=== PATIENT | male | born 1960 | race Caucasian/White ===

== ENCOUNTER 2019-01-29 07:10 | Emergency (ER) | payer BC ==
--- OUTSIDE RECORDS SUMMARY | 2019-01-29 07:28 | XMS REPORT | Continuity of Care Document ---
:1960 External Reference #:[id number] Author Name Katelin Dickey MD Address [address] [place] [address] Care Team Providers Name Role Phone Kaykay Schwartz, LASER ENGINEER, CNM Care Team Information Senior Environmental Practice Leader Unavailable Katelin Dickey MD Primary Care Physician Unavailable Payers Date Identification Numbers Payment Provider Subscriber Policy Number: [id number] [facility] Remington Gomez PayID: [id number] [address] [address] [place] [address] Expires: 2018 Policy Number: [id number] [employer] Remington Gomez PayID: [id number] [address] [place] [address] Advance Directives Description No Information Available Problems Active Problems Provider Date Coronary arteriosclerosis Nola Miller, BRI, Onset: 03/02/2012 MACHINE II CUTTER Carotid artery occlusion Nola Miller, MSN, Onset: 03/02/2012 MACHINE II CUTTER Peripheral vascular disease Nola Miller, MSN, Onset: 03/02/2012 MACHINE II CUTTER Hyperlipidemia Nola Miller, MSN, Onset: 03/02/2012 MACHINE II CUTTER Benign essential hypertension Nola Miller, MSN, Onset: 03/02/2012 MACHINE II CUTTER Mitral valve disorder Garcia Tee M.D., Onset: 10/11/2013 FACC Psychosexual dysfunction associated Garcia Tee M.D., 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 FACC Essential hypertension Nola Miller, MSN, Onset: 05/28/2016 MACHINE II CUTTER Preoperative cardiovascular Gracia Tee M.D., Onset: 01/09/2017 examination FACC Heartburn Johnathon Del Valle MD Onset: 09/30/2017 Screening for malignant neoplasm of Johnathon Del Valle MD Onset: 09/30/2017 colon Hemorrhage of rectum and anus Johnahton Del Valle MD Onset: 09/30/2017 Chronic nonalcoholic liver disease Johnathon Del Valle MD Onset: 09/30/2017 Incisional hernia Kar Goode MD,FACS Onset: 10/05/2017 Type 2 diabetes mellitus Katelin Dickey MD Onset: 10/16/2017 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/16/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 Smoking Status Reviewed: 01/18/19 Quit smoked 1.5 ppd for 30 yrs. Smokeless Tobacco Never Used Smokeless Tobacco ETOH Use Denies alcohol use Tobacco Use Start: Unknown End: Patient is a former QUIT 2006 Unknown smoker Recreational Drug Use Never Used Drugs Exercise Type/Frequency Exercises regularly Allergies, Adverse Reactions, Alerts Active Allergies Reaction Severity Comments Date Victoza Abdominal pain Severe 01/13/2019 Medications Active Medications SIG Qnty Indications Ordering Date Provider Metformin HCL take one tablet 60tabs Keli, Katelin, 01/05/2019 1000mg by mouth twice a MD Tablets day Ipratropium [place] use 2 sprays in 15ml J06.9 Keli, Katelin, 11/30/2018 0.06% each nostril MD Solution twice a day Benzonatate take one capsule 30caps R05 Keli, Katelin, 11/30/2018 200mg every 8 hours as MD Capsules needed Ergocalciferol take one a week 16caps E55.9 Gagen, 11/03/2018 [id number] Kaykay, MS, Capsules MACHINE II CUTTER-C, CNM Clopidogrel Bisulfate Take 1 Tablet By 30tabs Nay, 10/28/2018 Mouth Once Daily Garcia Olivier M.D., 75mg Tablets [facility] Proair Respiclick Take one or two 1units Gagen, 07/21/2018 puffs every 4-6 Kaykay, MS, 108(90Base) mcg/Act hours as needed MACHINE II CUTTER-C, CNM Aerosol for SOB Lancets Ultra Thin 30G Check BS 3- 4 100units E11.9 Gagen, 07/20/2018 times a day Type Kaykay, MS, Thin 30G Misc 2 diabetes MACHINE II CUTTER-C, CNM Freestyle Test fasting fs tid & 250units E11.42 Keli, Katelin, 04/20/2018 Strips prn MD Freestyle Test Fasting 250units E11.42 Keli, Katelin, 04/20/2018 Sugar Three MD Times A Day And as Needed Lancets Ultra Thin 30G use once daily 100units Keli, Katelin, 04/19/2018 and as needed MD Thin [facility]G [facility] Fenofibrate Take 1 Tablet By 90tabs E78.4 Davidenko, 02/19/2018 160mg Tablets Mouth Once Daily Garcia Olivier M.D., [facility] Glimepiride Take 3 Tablets 270tabs Keli, Katelin, 02/04/2018 2mg Tablets By Mouth Once MD Daily Amlodipine Besylate Take 1 Tablet By 90tabs Katelin Dickey, 01/15/2018 5mg Mouth Once Daily MD Tablets Cialis 1 tab by mouth 30tabs Katelin Dickey, 10/16/2017 5mg Tablets as needed for ED Pantoprazole Sodium take 1 tablet by 30tabs R12 Arnav, 09/30/2017 20mg mouth once daily MD Quirino Tablets DR Lisinopril Take 1 Tablet By 90tabs Katelin Dickey, 09/11/2017 40mg Tablets Mouth Once Daily Rosuvastatin Calcium take one tablet 30tabs E11.9 Nay, 12/21/2012 20mg by mouth once Garcia Olivier M.D., Tablets daily FACC Aspirin 1 po qd 90tabs Nola Miller 81mg Tablets Phani MSN, MACHINE II CUTTER Atenolol Take One Tablet 90tabs Nay, 50mg Tablets By Mouth Once Garcia Olivier M.D., Daily FACC History Medications Janumet Take 1 Tablet By 90tabs Katelin Dickey, 12/08/2018 - 50-1000mg Tablets Mouth Once Daily 01/05/2019 Metformin HCL take one tablet 60tabs Katelin Dickey, 12/07/2018 - 1000mg by mouth twice a MD 12/08/2018 Tablets day Azithromycin take 2 tablets 6tabs R05 Katelin Dickey, 11/30/2018 - 250mg the first day Unknown Tablets and then 1 tablet for next 4 days orally Prednisone 2 tabs (40 mg) 10tabs R06.2 Katelin Dickey, 11/30/2018 - 20mg Tablets daily for 5 days Unknown BD Pen Use with Victoza 100units Katelin Dickey, 11/30/2018 - Needle/Short/Ultra-Fin once a day, as 01/05/2019 e/31G X 8mm directed 31G X 8 mm Misc Victoza inject 0.6mg 18ml E11.9 Gagen, 11/03/2018 - 18mg/3ML Solution subq once daily Kaykay, 01/05/2019 Pen-Inject then after one MS, MACHINE II CUTTER-C, CNM week increase to 1.2mg once daily Terbinafine HCL 1 by mouth every 21tabs B35.3 Eddie, 10/11/2018 - 250mg day for 3 weeks ARLENE Hernández 10/22/2018 Tablets Cyclobenzaprine HCL 1 tab by mouth 30tabs Keli, Katelin, 04/19/2018 - 10mg at night Unknown Tablets Onetouch Ultra Blue use to test 100units Katelin Dickey, 04/19/2018 - blood sugar 04/20/2018 Strips fasting and as needed three times a day Arnicare apply to 75g M54.5 Gagen, 04/02/2018 - Gel affected area Kaykay, Unknown four times a day MS, MACHINE II CUTTER-C, CNM pain, swelling, bruising Cyclobenzaprine HCL Take one tablet 30tabs M54.5 Gagen, 04/02/2018 - 10mg every 8 hours Kaykay, 04/12/2018 Tablets prn low back MS, MACHINE II CUTTER-C, CNM pain Golytely drink half the 4000ml Z12.Luis Antonio Del Valle MD 09/30/2017 - 236gm Solution evening before 10/05/2017 Rec and half the morning of the procedure (1 cup every 10') Dulcolax 4 tablets taken 4tabs Z12Ras Del Valle MD 09/30/2017 - 5mg Tablets DR kody 8pm the day 10/05/2017 before the procedure Magnesium Citrate 1 bottle po x 296ml Z12.Luis Antonio Del Valle MD 09/30/2017 - one as directed 10/05/2017 1.745GM/30ML Solution Lisinopril-Hydrochloro 1 by mouth every 90tabs I10 Nay, 08/20/2017 - thiazide day Garcia Olivier, 09/11/2017 20-25mg Tablets M.DDwight, FACC E11.9 Glimepiride 2 tab by mouth 90tabs Keli, Katelin, 06/15/2017 - 2mg every day 02/04/2018 Tablets Janumet Take 1 Tablet By 90tabs Keli Katelin, 06/15/2017 - 50-1000mg Mouth Once Daily 12/07/2018 Tablets Janumet 1 tab by mouth 90tabs Keli Katelin, 11/30/2016 - 50-1000mg every day 06/15/2017 Tablets Gabapentin 1-2 tab by mouth 60caps Katelin Dickey, 11/12/2016 - 100mg every night as MD Unknown Capsules needed Ciclopirox apply to affected 45gm Katelin Dickey, 11/12/2016 - 0.77% Gel area of bilateral MD Unknown toes twice daily for four weeks Medrol medrol dose pack 1units M51.16 Nola Miller 05/28/2016 - 4mg TBPK as on package BRI Jeronimo, Unknown MACHINE II CUTTER Ventolin HFA take 1-2 puffs QS J43.2 Cresencio Hair, 12/25/2015 - every 4-6 hours Unknown 108(90Base) mcg/Act as needed for Aerosol shortness of breath. Spiriva Respimat take 2 puffs once 1units J43.2 Cresencio Hair, 12/25/2015 - daily. Unknown 2.5mcg/Act Aerosol Cialis po prn 5tabs 302.72 Nay, 05/02/2014 - 5mg Tablets Garcia Olivier M.D., Unknown FACC Tricor Take One Tablet 30tabs Nay, 07/19/2013 - 145mg Tablets By Mouth Every Garcia Olivier M.D., Unknown Day FACC Metformin HCL take one tablet 120tabs Gregorio Ortega 04/08/2013 - 500mg by mouth twice E., DO 12/01/2016 Tablets daily with meals Omeprazole 1 po qd 30caps Nola Miller 10/01/2010 - 20mg BRI Jeronimo, Unknown Capsules DR CROWE Aciphex 1 po qd 30tabs Nay, 09/11/2010 - 20mg Tablets Garcia Olivier M.D., 10/01/2010 DR FACAlida Tricor Take One Tablet 30tabs 272.4 Nay, 02/20/2010 - 145mg Tablets By Mouth Every Garcia Olivier M.D., Unknown Day FACC Lisinopril take one tablet 90tabs I10 Nay, 04/24/2009 - 20mg by mouth every Garcia Olivier M.D., 08/20/2017 Tablets day FACC E11.9 Tums prn Unknown - 500mg Chewtabs Unknown Crestor Take One Tablet 30tabs 272.4 Garcia Tee - 10mg Tablets By Mouth Every M., M.D., [facility] 12/21/2012 Day Glimepiride 1 po qd 180tabs Unknown - 4mg 06/15/2017 Tablets Fenofibrate take one tablet 90tabs E78.4 Garcia Tee - 145mg by mouth every M., M.D., [facility] 02/19/2018 Tablets day Tums chew and swallow Unknown - 500mg Chewtabs 1 tablet by 01/15/2018 mouth 3 times per day prn Hydrocodone-Acetamin as needed Unknown - ophen 12/07/2017 5-325mg Tablets Immunizations CPT Code Status Date Vaccine Reaction Lot # [id number] Given 07/20/2018 Influenza Virus Vaccine, Quadrivalent, 36 none [id number] Mos+, .5ML 13740 Given 06/15/2017 Influenza Virus Vaccine Quadrivalent Iiv4 [id number] [place] [address] Given 07/08/2016 Influenza Virus Vaccine Split Virus Use [id number] For Individual 3Yr Older [id number] Given 07/04/2015 Influenza Vaccine (Fluzone) Age 3 And Older 10300 Given 08/04/2013 Pneumovax Injection Vital Signs Date Vital Result Comment 01/18/2019 2:54pm BP Systolic Sitting Right Arm 126 mmHg BP Diastolic Sitting Right Arm 70 mmHg Body Temperature 98.4 F Heart Rate 68 /min Respiratory Rate 20 /min Height 69 inches 5'9" Weight 217.00 lb BMI (Body Mass Index) 32.0 kg/m2 BSA (Body Surface Area) 2.14 m2 [place] body weight in kilograms 73 kg O2 % BldC Oximetry 96 % ra 01/13/2019 4:30pm BP Systolic Sitting Left Arm 139 mmHg BP Diastolic Sitting Left Arm 66 mmHg Heart Rate 68 /min Respiratory Rate 14 /min Height 69 inches 5'9" Weight 216.38 lb BMI (Body Mass Index) 31.9 kg/m2 BSA (Body Surface Area) 2.14 m2 [place] body weight in kilograms 73 kg O2 % BldC Oximetry 94 % 12/14/2018 3:22pm BP Systolic Sitting Left Arm 132 mmHg BP Diastolic Sitting Left Arm 68 mmHg Body Temperature 98.0 F Heart Rate 75 /min reg Respiratory Rate 24 /min Height 69 inches 5'9" Weight 219.00 lb BMI (Body Mass Index) 32.3 kg/m2 BSA (Body Surface Area) 2.15 m2 [place] body weight in kilograms 73 kg O2 % BldC Oximetry 95 % ra 12/08/2018 2:55pm BP Systolic Sitting Left Arm 136 mmHg BP Diastolic Sitting Left Arm 51 mmHg Heart Rate 72 /min Respiratory Rate 16 /min Height 69 inches 5'9" Weight 218.00 lb BMI (Body Mass Index) 32.2 kg/m2 BSA (Body Surface Area) 2.14 m2 [place] body weight in kilograms 73 kg O2 % BldC Oximetry 95 % ra 11/30/2018 2:55pm BP Systolic Sitting Right Arm 148 mmHg 130/68 on recheck. BP Diastolic Sitting Right Arm 64 mmHg 130/68 on recheck. Body Temperature 99.7 F Heart Rate 67 /min reg Respiratory Rate 30 /min Height 69 inches 5'9" Weight 220.00 lb BMI (Body Mass Index) 32.5 kg/m2 BSA (Body Surface Area) 2.15 m2 [place] body weight in kilograms 73 kg O2 % BldC Oximetry 96 % ra 11/03/2018 3:15pm BP Systolic Sitting Right Arm 144 mmHg BP Diastolic Sitting Right Arm 82 mmHg Body Temperature 99.0 F Heart Rate 65 /min Respiratory Rate 18 /min Height 69 inches 5'9" Weight 221.00 lb BMI (Body Mass Index) 32.6 kg/m2 BSA (Body Surface Area) 2.16 m2 [place] body weight in kilograms 73 kg O2 % BldC Oximetry 96 % ra 10/20/2018 3:22pm BP Systolic Sitting Right Arm 126 mmHg BP Diastolic Sitting Right Arm 78 mmHg Body Temperature 99.8 F Heart Rate 64 /min Respiratory Rate 24 /min Height 69 inches 5'9" Weight 221.00 lb BMI (Body Mass Index) 32.6 kg/m2 BSA (Body Surface Area) 2.16 m2 [place] body weight in kilograms 73 kg O2 % BldC Oximetry 96 % 10/11/2018 1:02pm BP Systolic 194 mmHg BP Diastolic 72 mmHg Body Temperature 98.8 F Heart Rate 60 /min Respiratory Rate 18 /min Height 69 inches 5'9" Weight 220.00 lb BMI (Body Mass Index) 32.5 kg/m2 BSA (Body Surface Area) 2.15 m2 [place] body weight in kilograms 73 kg O2 % BldC Oximetry 95 % 08/23/2018 2:49pm BP Systolic Sitting Left Arm 148 mmHg BP Diastolic Sitting Left Arm 60 mmHg Heart Rate 82 /min Respiratory Rate 18 /min Height 69 inches 5'9" Weight 223.00 lb BMI (Body Mass Index) 32.9 kg/m2 BSA (Body Surface Area) 2.16 m2 [place] body weight in kilograms 73 kg O2 % BldC Oximetry 93 % 07/20/2018 2:45pm BP Systolic 148 mmHg recheck 129/75 BP Diastolic 66 mmHg recheck 129/75 Body Temperature 96.9 F Heart Rate 64 /min Respiratory Rate 18 /min Height 69 inches 5'9" Weight 215.12 lb BMI (Body Mass Index) 31.8 kg/m2 BSA (Body Surface Area) 2.13 m2 [place] body weight in kilograms 73 kg O2 % BldC Oximetry 96 % 07/01/2018 3:32pm BP Systolic Sitting Left Arm 144 mmHg BP Diastolic Sitting Left Arm 70 mmHg Heart Rate 64 /min Respiratory Rate 16 /min Height 69 inches 5'9" Weight 218.00 lb BMI (Body Mass Index) 32.2 kg/m2 BSA (Body Surface Area) 2.14 m2 [place] body weight in kilograms 73 kg 06/03/2018 3:39pm BP Systolic Sitting Left Arm 140 mmHg BP Diastolic Sitting Left Arm 64 mmHg Heart Rate 70 /min Respiratory Rate 16 /min Height 69 inches 5'9" Weight 215.00 lb BMI (Body Mass Index) 31.7 kg/m2 BSA (Body Surface Area) 2.13 m2 [place] body weight in kilograms 73 kg O2 % BldC Oximetry 95 % 04/19/2018 3:42pm BP Systolic Sitting Left Arm 140 mmHg manual 136/66/66 - manual cuff on recheck. kjt BP Diastolic Sitting Left Arm 64 mmHg manual 136/66/66 - manual cuff on recheck. kjt Body Temperature 98.7 F Heart Rate 73 /min Respiratory Rate 18 /min Height 69 inches 5'9" Weight 218.00 lb BMI (Body Mass Index) 32.2 kg/m2 BSA (Body Surface Area) 2.14 m2 [place] body weight in kilograms 73 kg O2 % BldC Oximetry 97 % Ra 04/12/2018 3:37pm BP Systolic Sitting Left Arm 127 mmHg BP Diastolic Sitting Left Arm 68 mmHg Body Temperature 99.0 F Heart Rate 78 /min Respiratory Rate 18 /min Height 69 inches 5'9" Weight 218.00 lb BMI (Body Mass Index) 32.2 kg/m2 BSA (Body Surface Area) 2.14 m2 [place] body weight in kilograms 73 kg O2 % BldC Oximetry 94 % repeat 98% Ra 04/02/2018 2:26pm BP Systolic 169 mmHg BP Diastolic 70 mmHg Body Temperature 97.8 F Heart Rate 68 /min Respiratory Rate 18 /min Height 69 inches 5'9" Weight 217.50 lb BMI (Body Mass Index) 32.1 kg/m2 BSA (Body Surface Area) 2.14 m2 [place] body weight in kilograms 73 kg O2 % BldC Oximetry 96 % 02/17/2018 2:29pm BP Systolic Sitting Left Arm 130 mmHg BP Diastolic Sitting Left Arm 58 mmHg Heart Rate 70 /min Respiratory Rate 18 /min Height 69 inches 5'9" Weight 216.00 lb BMI (Body Mass Index) 31.9 kg/m2 BSA (Body Surface Area) 2.13 m2 [place] body weight in kilograms 73 kg 01/15/2018 2:13pm BP Systolic Sitting Right Arm 154 mmHg BP Diastolic Sitting Right Arm 72 mmHg Heart Rate 67 /min Respiratory Rate 16 /min Height 69 inches 5'9" Weight 218.00 lb BMI (Body Mass Index) 32.2 kg/m2 BSA (Body Surface Area) 2.14 m2 [place] body weight in kilograms 73 kg 12/30/2017 10:30am BP Systolic Sitting Left Arm 160 mmHg BP Diastolic Sitting Left Arm 86 mmHg Heart Rate 60 /min Respiratory Rate 16 /min Height 69 inches 5'9" Weight 216.00 lb BMI (Body Mass Index) 31.9 kg/m2 BSA (Body Surface Area) 2.13 m2 [place] body weight in kilograms 73 kg 12/21/2017 11:10am BP Systolic 142 mmHg BP Diastolic 80 mmHg Height 69 inches 5'9" Weight 215.00 lb BMI (Body Mass Index) 31.7 kg/m2 BSA (Body Surface Area) 2.13 m2 [place] body weight in kilograms 73 kg 12/07/2017 10:50am BP Systolic 179 mmHg BP Diastolic 79 mmHg Heart Rate 70 /min Respiratory Rate 18 /min Height 69 inches 5'9" Weight 210.00 lb BMI (Body Mass Index) 31.0 kg/m2 BSA (Body Surface Area) 2.11 m2 [place] body weight in kilograms 73 kg 11/16/2017 2:31pm BP Systolic 148 mmHg BP Diastolic 88 mmHg Height 69 inches 5'9" Weight 210.00 lb BMI (Body Mass Index) 31.0 kg/m2 BSA (Body Surface Area) 2.11 m2 [place] body weight in kilograms 73 kg 10/22/2017 3:28pm BP Systolic Sitting Left Arm 171 mmHg BP Diastolic Sitting Left Arm 79 mmHg Body Temperature 98.3 F Heart Rate 64 /min Respiratory Rate 18 /min Height 69 inches 5'9" Weight 216.00 lb BMI (Body Mass Index) 31.9 kg/m2 BSA (Body Surface Area) 2.13 m2 [place] body weight in kilograms 73 kg O2 % BldC Oximetry 97 % 10/16/2017 9:10am BP Systolic Sitting Left Arm 162 mmHg recheck 168/64 BP Diastolic Sitting Left Arm 71 mmHg recheck 168/64 Heart Rate 66 /min Respiratory Rate 16 /min Height 69 inches 5'9" Weight 212.00 lb BMI (Body Mass Index) 31.3 kg/m2 BSA (Body Surface Area) 2.12 m2 [place] body weight in kilograms 73 kg 10/14/2017 10:48am BP Systolic 128 mmHg BP Diastolic 70 mmHg Height 69 inches 5'9" Weight 213.00 lb BMI (Body Mass Index) 31.5 kg/m2 BSA (Body Surface Area) 2.12 m2 [place] body weight in kilograms 73 kg 10/05/2017 9:17am BP Systolic 142 mmHg BP Diastolic 80 mmHg Height 69 inches 5'9" Weight 213.00 lb BMI (Body Mass Index) 31.5 kg/m2 BSA (Body Surface Area) 2.12 m2 [place] body weight in kilograms 73 kg 09/30/2017 8:50am BP Systolic Sitting Left Arm 160 mmHg BP Diastolic Sitting Left Arm 76 mmHg Heart Rate 66 /min Respiratory Rate 16 /min Height 69 inches 5'9" Weight 217.00 lb BMI (Body Mass Index) 32.0 kg/m2 BSA (Body Surface Area) 2.14 m2 [place] body weight in kilograms 73 kg 09/11/2017 12:49pm BP Systolic 153 mmHg recheck 138/62 BP Diastolic 69 mmHg recheck 138/62 Heart Rate 65 /min Respiratory Rate 14 /min Weight 217.12 lb O2 % BldC Oximetry 97 % 08/20/2017 3:00pm BP Systolic Sitting Left Arm 152 mmHg BP Diastolic Sitting Left Arm 66 mmHg Heart Rate 75 /min Respiratory Rate 16 /min Weight 216.00 lb O2 % BldC Oximetry 95 % 06/19/2017 9:25am BP Systolic Sitting Left Arm 129 mmHg BP Diastolic Sitting Left Arm 67 mmHg Heart Rate 66 /min 06/15/2017 9:09am BP Systolic Sitting Right Arm 195 mmHg recheck 162/98 BP Diastolic Sitting Right Arm 79 mmHg recheck 162/98 Heart Rate 58 /min Respiratory Rate 16 /min Height 69 inches 5'9" Weight 208.00 lb BMI (Body Mass Index) 30.7 kg/m2 BSA (Body Surface Area) 2.10 m2 [place] body weight in kilograms 73 kg 03/17/2017 9:44am BP Systolic Sitting Right Arm 140 mmHg BP Diastolic Sitting Right Arm 80 mmHg Height 69 inches 5'9" Weight 201.00 lb BMI (Body Mass Index) 29.7 kg/m2 BSA (Body Surface Area) 2.07 m2 [place] body weight in kilograms 73 kg 01/09/2017 1:44pm BP Systolic Sitting Right Arm 138 mmHg BP Diastolic Sitting Right Arm 66 mmHg Heart Rate 78 /min Respiratory Rate 16 /min Height 69 inches 5'9" Weight 217.00 lb BMI (Body Mass Index) 32.0 kg/m2 BSA (Body Surface Area) 2.14 m2 12/24/2016 1:27pm BP Systolic Sitting Left Arm 154 mmHg BP Diastolic Sitting Left Arm 68 mmHg Heart Rate 72 /min Respiratory Rate 16 /min Height 69 inches 5'9" Weight 220.00 lb BMI (Body Mass Index) 32.5 kg/m2 BSA (Body Surface Area) 2.15 m2 O2 % BldC Oximetry 95 % Room Air 11/12/2016 8:30am BP Systolic 168 mmHg andrea 140/72 BP Diastolic 76 mmHg andrea 140/72 Heart Rate 64 /min Height 69 inches 5'9" Weight 214.00 lb BMI (Body Mass Index) 31.6 kg/m2 BSA (Body Surface Area) 2.13 m2 10/01/2016 3:02pm BP Systolic Sitting Left Arm 173 mmHg BP Diastolic Sitting Left Arm 75 mmHg Heart Rate 66 /min Height 69 inches 5'9" Weight 221.00 lb BMI (Body Mass Index) 32.6 kg/m2 BSA (Body Surface Area) 2.16 m2 07/08/2016 10:34am BP Systolic 162 mmHg BP Diastolic 68 mmHg Heart Rate 62 /min Height 69 inches 5'9" Weight 219.00 lb BMI (Body Mass Index) 32.3 kg/m2 BSA (Body Surface Area) 2.15 m2 06/25/2016 1:27pm BP Systolic Sitting Left Arm 140 mmHg BP Diastolic Sitting Left Arm 64 mmHg Heart Rate 70 /min Respiratory Rate 16 /min Height 69 inches 5'9" Weight 219.00 lb BMI (Body Mass Index) 32.3 kg/m2 BSA (Body Surface Area) 2.15 m2 O2 % BldC Oximetry 95 % 05/28/2016 3:16pm BP Systolic Sitting Left Arm 120 mmHg BP Diastolic Sitting Left Arm 64 mmHg Heart Rate 64 /min Respiratory Rate 16 /min Height 69 inches 5'9" Weight 219.00 lb BMI (Body Mass Index) 32.3 kg/m2 BSA (Body Surface Area) 2.15 m2 12/25/2015 1:12pm BP Systolic Sitting Left Arm 132 mmHg BP Diastolic Sitting Left Arm 68 mmHg Heart Rate 66 /min Height 69 inches 5'9" Weight 221.00 lb BMI (Body Mass Index) 32.6 kg/m2 BSA (Body Surface Area) 2.16 m2 O2 % BldC Oximetry 95 % 11/22/2015 3:30pm BP Systolic Sitting Right Arm 146 mmHg BP Diastolic Sitting Right Arm 76 mmHg Heart Rate 57 /min Respiratory Rate 16 /min Height 69 inches 5'9" Weight 222.00 lb BMI (Body Mass Index) 32.8 kg/m2 BSA (Body Surface Area) 2.16 m2 06/25/2015 2:08pm BP Systolic Sitting Right Arm 148 mmHg BP Diastolic Sitting Right Arm 68 mmHg Heart Rate 72 /min Respiratory Rate 16 /min Height 69 inches 5'9" Weight 217.00 lb BMI (Body Mass Index) 32.0 kg/m2 BSA (Body Surface Area) 2.14 m2 O2 % BldC Oximetry 95 % 05/23/2015 1:20pm BP Systolic Sitting Left Arm 120 mmHg BP Diastolic Sitting Left Arm 62 mmHg Heart Rate 68 /min Respiratory Rate 16 /min Height 69 inches 5'9" Weight 216.00 lb BMI (Body Mass Index) 31.9 kg/m2 BSA (Body Surface Area) 2.13 m2 11/09/2014 1:05pm BP Systolic Sitting Right Arm 138 mmHg BP Diastolic Sitting Right Arm 70 mmHg Heart Rate 72 /min Respiratory Rate 16 /min Height 69 inches 5'9" Weight 224.00 lb BMI (Body Mass Index) 33.1 kg/m2 BSA (Body Surface Area) 2.17 m2 05/02/2014 11:37am BP Systolic Sitting Right Arm 132 mmHg BP Diastolic Sitting Right Arm 68 mmHg Heart Rate 65 /min Respiratory Rate 16 /min Height 69 inches 5'9" Weight 225.00 lb BMI (Body Mass Index) 33.2 kg/m2 BSA (Body Surface Area) 2.17 m2 10/11/2013 2:03pm BP Systolic Sitting Left Arm 122 mmHg BP Diastolic Sitting Left Arm 70 mmHg Heart Rate 72 /min Respiratory Rate 16 /min Height 69 inches 5'9" Weight 220.00 lb BMI (Body Mass Index) 32.5 kg/m2 BSA (Body Surface Area) 2.15 m2 04/06/2013 1:28pm BP Systolic Sitting Left Arm 120 mmHg BP Diastolic Sitting Left Arm 58 mmHg Heart Rate 72 /min Respiratory Rate 16 /min Height 69 inches 5'9" Weight 202.00 lb BMI (Body Mass Index) 29.8 kg/m2 BSA (Body Surface Area) 2.07 m2 10/06/2012 2:46pm BP Systolic Sitting Left Arm 132 mmHg BP Diastolic Sitting Left Arm 78 mmHg Heart Rate 64 /min Respiratory Rate 16 /min Height 69 inches 5'9" Weight 198.00 lb BMI (Body Mass Index) 29.2 kg/m2 03/02/2012 3:42pm BP Systolic Sitting Left Arm 138 mmHg BP Diastolic Sitting Left Arm 70 mmHg Heart Rate 72 /min Respiratory Rate 16 /min Height 69 inches 5'9" Weight 207.00 lb BMI (Body Mass Index) 30.6 kg/m2 09/01/2011 3:04pm BP Systolic Sitting Right Arm 138 mmHg BP Diastolic Sitting Right Arm 70 mmHg Heart Rate 80 /min Respiratory Rate 16 /min Height 69 inches 5'9" Weight 220.00 lb BMI (Body Mass Index) 32.5 kg/m2 03/13/2011 2:09pm BP Systolic Sitting Right Arm 122 mmHg BP Diastolic Sitting Right Arm 78 mmHg Heart Rate 75 /min regular Respiratory Rate 16 /min Height 69 inches 5'9" Weight 223.00 lb BMI (Body Mass Index) 32.9 kg/m2 09/11/2010 2:05pm BP Systolic Sitting Left Arm 128 mmHg BP Diastolic Sitting Left Arm 78 mmHg Heart Rate 64 /min Respiratory Rate 16 /min Height 69 inches 5'9" Weight 231.00 lb BMI (Body Mass Index) 34.1 kg/m2 03/12/2010 12:45pm Heart Rate 67 /min Respiratory Rate 14 /min Weight 226.00 lb Results Test Date Facility Test Result H/L Range Note CBC 01/18/2019 [facility] White Blood 4.8 K/uL N 3.4-10.5 1 W/Automated [address] [place] [address] [phone] Red Blood Count 4.29 M/uL N 4.20-5.80 Hemoglobin 13.1 gm/dL N 12.8-17.0 Hematocrit 38.8 % N 38.0-48.0 Mean Cell Volume 90.4 fl N 80.0-96.0 Mean Corpuscular HGB 30.5 pg N 27.0-33.0 Mean Corpuscular HGB Conc 33.8 g/dL N 31.7-36.0 Platelet Count 193 K/uL N 155-360 Red Cell Distri Width SD 45.4 fl N 36-51 Red Cell Distri Width %CV 13.8 % N 11.6-15.8 Mean Platelet Volume 12.0 fl High 6.6-10.6 Neut% 49.3 % N 33.0-73.0 Lymph % 34.2 % N 20.0-42.0 [place] % 11.8 % High 0.0-10.0 Eo% 4.1 % N 0.0-6.6 Bas% 0.6 % N 0.0-1.1 Immature Grans 0.0 % N 0.0-5.0 NRBC % 0.0 /100WBC < 10/ 100 WBC Neut# 2.38 K/uL N 1.8-7.0 Lymph # 1.65 K/uL N 1.0-4.0 [place] # 0.57 K/uL N 0.0-0.8 Eos # 0.20 K/uL N 0.0-0.5 Baso # 0.03 K/uL N 0.0-0.1 Immature Grans Absolute 0.00 K/uL NRBC # 0.00 K/uL Comprehensive Metabolic 01/18/2019 [facility] Glucose 99 mg/dL N 74-[address] [place], [place] [id number] [phone] BUN 16 mg/dL N 7-18 Creatinine 1.1 mg/dL N 0.6-1.3 Glom Filtration Rate, Estimate >60 mL/min >60 If >60 mL/min >60 2 BUN/Creat 14.5 ratio Sodium 139 mmol/L N 136-145 Potassium 4.0 mmol/L N 3.5-5.1 Chloride 105 mmol/L N 98-107 Carbon Dioxide 27 mmol/L N 21-32 Anion Gap 7 mEq/L Low 8-16 Calcium 9.4 mg/dL N 8.5-10.1 Total Protein 7.4 g/dL N 6.4-8.2 Albumin 3.8 g/dL N 3.4-5.0 Globulin 3.6 g/dL N 1.9-4.3 Alb/Glob 1.1 ratio Bilirubin,Total 0.3 mg/dL N 0.2-1.0 Sgot/Ast 45 U/L High 15-37 SGPT/Alt 83 U/L High 12-78 Alkaline Phosphatase 75 U/L N 45-117 Glycohemoglobin 01/18/2019 [facility] Glycohemoglobin 6.8 % High 4.2-6.[address] (A1c) [place], [place] [id number] [phone] eAG 148 mg/dL Laboratory test 01/18/2019 [facility] Vitamin 28.7 Low 30.0-100.0 [address] D,25-Hydroxy ng/mL [place], [place] [id number] [phone] LDL Cholesterol 01/18/2019 [facility] Cholesterol 112 <200 [address] mg/dL [place], [place] [id number] [phone] Triglycerides 257 mg/dL High <150 6 HDL Cholesterol 24 mg/dL Low >40 7 LDL-Cholesterol 37 mg/dL < 100 8 HIV Screen 4TH 10/30/2018 [facility] HIV Screen Non Non 9, 10 [address] 4th [place] [address] Generation [phone] wRfx Hepatitis 10/30/2018 [facility] Hepatitis A Negative Negative Evaluation [address] [place] [place] [address] [phone] HBsAg Screen [Ref Lab] Negative Negative Hepatitis B Core IgM Negative Negative HCV Signal/Cutoff ratio 0.1 s/corat 0.0-0.9 11 Laboratory test 10/30/2018 [facility] Gamma Glutamyl 58 U/L N 5-[address] [place] [address] [phone] Laboratory test 10/20/2018 [facility] Urine Creatinine 99 mg/dL finding [address] [place] [address] [phone] Urine Dipstick 10/20/2018 [facility] Ua Color yellow Yellow Ua Clarity clear Clear Ua Leuko negative Negative Ua Nitrite negative Negative Ua Urobilinogen negative Low 0.2 - 1.0 E.U./dL Ua Protein negative Negative Ua PH 6.0 Low 6.5-7.5 Ua Blood negative Negative Ua Specific [place] 1.025 1.010-1.030 Ua Ketones negative Negative Ua Bilirubin negative Negative Ua Glucose 1+ High Negative Comprehensive 10/20/2018 [facility] Glucose 174 mg/dL High 74-106 12 Metabolic Panel [address] [place] [address] [phone] BUN 20 mg/dL High 7-18 Creatinine 1.2 mg/dL N 0.6-1.3 Glom Filtration Rate, Estimate >60 mL/min >60 If >60 mL/min >60 13 BUN/Creat 16.6 ratio Sodium 137 mmol/L N 136-145 Potassium 4.1 mmol/L N 3.5-5.1 Chloride 106 mmol/L N 98-107 Carbon Dioxide 25 mmol/L N 21-32 Anion Gap 6 mEq/L Low 8-16 Calcium 8.4 mg/dL Low 8.5-10.1 Total Protein 7.6 g/dL N 6.4-8.2 Albumin 3.6 g/dL N 3.4-5.0 Globulin 4.0 g/dL N 1.9-4.3 Alb/Glob 0.9 ratio Bilirubin,Total 0.4 mg/dL N 0.2-1.0 Sgot/Ast 53 U/L High 15-37 SGPT/Alt 86 U/L High 12-78 Alkaline Phosphatase 88 U/L N 45-117 Glycohemoglobin 10/20/2018 [facility] Glycohemoglobin 8.2 % High 4.2-6.3 [address] (A1c) [place] [address] [phone] eAG 189 mg/dL Laboratory 10/20/2018 [facility] Vitamin 8.7 Low 30.0-100.0 15 test finding [address] D,25-Hydroxy ng/[place] [address] [phone] CBC 10/20/2018 [facility] White Blood 5.6 K/uL N 3.4-10.5 W/Automated [address] [place] [place] [address] [phone] Red Blood Count 4.72 M/uL N 4.20-5.80 Hemoglobin 13.9 gm/dL N 12.8-17.0 Hematocrit 41.7 % N 38.0-48.0 Mean Cell Volume 88.3 fl N 80.0-96.0 Mean Corpuscular HGB 29.4 pg N 27.0-33.0 Mean Corpuscular HGB Conc 33.3 g/dL N 31.7-36.0 Platelet Count 185 K/uL N 155-360 Red Cell Distri Width SD 43.0 fl N 36-51 Red Cell Distri Width %CV 13.6 % N 11.6-15.8 Mean Platelet Volume 11.3 fL High 6.6-10.6 Neut% 58.9 % N 33.0-73.0 Lymph % 29.8 % N 20.0-42.0 [place] % 9.3 % N 0.0-10.0 Eo% 1.6 % N 0.0-6.6 Bas% 0.4 % N 0.0-1.1 Neut# 3.31 K/uL N 1.8-7.0 Lymph # 1.67 K/uL N 1.0-4.0 [place] # 0.52 K/uL N 0.0-0.8 Eos # 0.09 K/uL N 0.0-0.5 Baso # 0.02 K/uL N 0.0-0.1 LDL Cholesterol Profile 10/20/2018 [facility] Cholesterol 123 mg/dL <200 16 [address] [place] [address] [phone] Triglycerides 466 mg/dL High <150 17 HDL Cholesterol 21 mg/dL Low >40 18 LDL-Cholesterol TNP mg/dL < 100 19 LDL Cholesterol Profile 07/20/2018 [facility] Cholesterol 81 mg/dL <200 20 [address] [place] [address] [phone] Triglycerides 204 mg/dL High <150 21 HDL Cholesterol 17 mg/dL Low >40 22 LDL-Cholesterol 23 mg/dL < 100 23 Basic Metabolic Panel 07/20/2018 [facility] Glucose 143 mg/dL High 74-106 [address], [place] [id number] [phone] BUN 23 mg/dL High 7-18 Creatinine 1.2 mg/dL N 0.6-1.3 Glom Filtration Rate, Estimate >60 mL/min >60 If >60 mL/min >60 24 BUN/Creat 19.1 ratio Sodium 143 mmol/L N 136-145 Potassium 4.5 mmol/L N 3.5-5.1 Chloride 108 mmol/L High 98-107 Carbon Dioxide 29 mmol/L N 21-32 Anion Gap 6 mEq/L Low 8-16 Calcium 8.1 mg/dL Low 8.5-10.1 Glycohemoglobin 07/20/2018 [facility] Glycohemoglobin 6.8 % High 4.2-6.3 25 A1c [address] [facility] (A1c) [place], [place] [id number] [phone] eAG 148 mg/dL Comprehensive 04/09/2018 [facility] Glucose 204 mg/dL High 74-106 26 Metabolic Panel [address], [place] [address] [phone] BUN 17 mg/dL N 7-18 Creatinine 1.1 mg/dL N 0.6-1.3 Glom Filtration Rate, Estimate >60 mL/min >60 If >60 mL/min >60 27 BUN/Creat 15.4 ratio Sodium 139 mmol/L N 136-145 Potassium 4.4 mmol/L N 3.5-5.1 Chloride 104 mmol/L N 98-107 Carbon Dioxide 26 mmol/L N 21-32 Anion Gap 9 mEq/L N 8-16 Calcium 8.7 mg/dL N 8.5-10.1 Total Protein 7.6 g/dL N 6.4-8.2 Albumin 3.5 g/dL N 3.4-5.0 Globulin 4.1 g/dL N 1.9-4.3 Alb/Glob 0.9 ratio Bilirubin,Total 0.3 mg/dL N 0.2-1.0 Sgot/Ast 36 U/L N 15-37 SGPT/Alt 75 U/L N 12-78 Alkaline Phosphatase 81 U/L N 45-117 Glycohemoglobin 04/09/2018 [facility] Glycohemoglobin 7.9 % High 4.2-6.3 28 A1c [address] [facility] (A1c) [place] [address] [phone] eAG 180 mg/dL LDL Cholesterol Profile 04/09/2018 [facility] Cholesterol 100 mg/dL <200 29 [address] [place] [address] [phone] Triglycerides 386 mg/dL High <150 30 HDL Cholesterol 21 mg/dL Low >40 31 LDL-Cholesterol 2 mg/dL < 100 32 Microalb/Creat 04/09/2018 [facility] Microalbumin,Urine 7.7 mg/L < 20.0 Ratio,Random [address] [place] [address] [phone] Microalbumin/Creatinine Ratio 16.7 ug/mgCrt < 30.0 Urine Creatinine Conc 46 mg/dL Microalb/Creat 01/15/2018 [facility] Microalbumin,Urine 6.1 mg/L < 20.0 Ratio,Random [address] [place] [address] [phone] Microalbumin/Creatinine Ratio 13.6 ug/mgCrt < 30.0 Urine Creatinine Conc 45 mg/dL Urine 01/15/2018 N2N/CCD Import Urine 13.6 < 30.0 albumin/creatinine albumin/creatinine ratio with detection ratio with detection limi limit of 20mg/l or less Urine creatinine 01/15/2018 N2N/CCD Import Urine creatinine 45 measurement measurement (mass/volume) (mass/volume) Urine microalbumin 01/15/2018 N2N/CCD Import Urine microalbumin 6.1 < 20.0 measurement by measurement by detection limit detection limit <=20 mg/l (mass/volume) Urine Dipstick 01/15/2018 [facility] Ua Color yellow Yellow Ua Clarity clear Clear Ua Leuko n Negative Ua Nitrite n Negative Ua Urobilinogen .2 0.2 - 1.0 E.U./dL Ua Protein n Negative Ua PH 7 6.5-7.5 Ua Blood n Negative Ua Specific [place] 1.015 1.010-1.030 Ua Ketones n Negative Ua Bilirubin n Negative Ua Glucose n Negative Serum or plasma 12/29/2017 N2N/CCD Import Serum or plasma 107 <200 cholesterol cholesterol measurement measurement (mass/volu (mass/volume) Serum or plasma 12/29/2017 N2N/CCD Import Serum or plasma 25 < 100 cholesterol in LDL cholesterol in LDL measurement by measurement by calculation (mass/volume) Serum or plasma 12/29/2017 N2N/CCD Import Serum or plasma 22 Low >40 cholesterol in HDL cholesterol in HDL measurement (ma measurement (mass/volume) Serum or plasma 12/29/2017 N2N/CCD Import Serum or plasma 8.7 8.5-10.1 calcium measurement calcium measurement (mass/volume) (mass/volume) Serum or plasma 12/29/2017 N2N/CCD Import Serum or plasma 49 High 15-37 aspartate aspartate aminotransferase aminotransferase measure measurement (enzymatic activity/volume) Serum or plasma 12/29/2017 N2N/CCD Import Serum or plasma 83 45-117 alkaline phosphatase alkaline phosphatase measurement ( measurement (enzymatic activity/volume) Serum or plasma 12/29/2017 N2N/CCD Import Serum or plasma 3.5 3.4-5.0 albumin measurement albumin measurement (mass/volume) (mass/volume) Serum carbon dioxide 12/29/2017 N2N/CCD Import Serum carbon dioxide 31 21-32 measurement measurement RDW RBC Auto-Rto 12/29/2017 N2N/CCD Import RDW RBC Auto-Rto 13.5 11.6- 15. 8 RDW RBC Auto 12/29/2017 N2N/CCD Import RDW RBC Auto 42.5 36-51 Serum or plasma 12/29/2017 N2N/CCD Import Serum or plasma 1.2 0.6-1.3 creatinine creatinine measurement measurement (mass/volum (mass/volume) Serum or plasma 12/29/2017 N2N/CCD Import Serum or plasma 221 High 74- 106 glucose measurement glucose measurement (mass/volume) (mass/volume) Serum or plasma 12/29/2017 N2N/CCD Import Serum or plasma 7.5 6.4-8.2 protein measurement protein measurement (mass/volume) (mass/volume) Serum or plasma 12/29/2017 N2N/CCD Import Serum or plasma 0.3 0.2-1.0 total bilirubin total bilirubin measurement (mass/ measurement (mass/volume) Serum or plasma 12/29/2017 N2N/CCD Import Serum or plasma 299 High <150 triglyceride triglyceride measurement measurement (mass/vol (mass/volume) Serum or plasma urea 12/29/2017 N2N/CCD Import Serum or plasma urea 19 High 7-18 nitrogen measurement nitrogen measurement (mass/vo (mass/volume) Serum sodium 12/29/2017 N2N/CCD Import Serum sodium 139 136-145 measurement measurement CBS W/Automated Diff 12/29/2017 [facility] White Blood Count 4.4 N 3.4-10.[address] [place] K/[place] [address] [phone] Red Blood Count 4.68 M/uL N 4.20-5.80 Hemoglobin 13.9 gm/dL N 12.8-17.0 Hematocrit 41.1 % N 38.0-48.0 Mean Cell Volume 87.8 fl N 80.0-96.0 Mean Corpuscular HGB 29.7 pg N 27.0-33.0 Mean Corpuscular HGB Conc 33.8 g/dL N 31.7-36.0 Platelet Count 151 K/uL Low 155-360 Red Cell Distri Width SD 42.5 fl N 36-51 Red Cell Distri Width %CV 13.5 % N 11.6-15.8 Mean Platelet Volume 11.3 fL High 6.6-10.6 Neut% 52.0 % N 33.0-73.0 Lymph % 33.4 % N 20.0-42.0 [place] % 11.7 % High 0.0-10.0 Eo% 2.7 % N 0.0-6.6 Bas% 0.2 % N 0.0-1.1 Neut# 2.27 K/uL N 1.8-7.0 Lymph # 1.46 K/uL N 1.0-4.0 [place] # 0.51 K/uL N 0.0-0.8 Eos # 0.12 K/uL N 0.0-0.5 Baso # 0.01 K/uL N 0.0-0.1 LDL Cholesterol Profile 12/29/2017 [facility] Cholesterol 107 mg/dL <200 34 [address] [place], [place] [id number] [phone] Triglycerides 299 mg/dL High <150 35 HDL Cholesterol 22 mg/dL Low >40 36 LDL-Cholesterol 25 mg/dL < 100 37 Glycohemoglobin 12/29/2017 [facility] Glycohemoglobin 7.7 % High 4.2-6.3 38 A1c [address] (A1c) [place], [place] [id number] [phone] eAG 174 mg/dL Comprehensive Metabolic 12/29/2017 [facility] Glucose 221 mg/dL High 74-106 Panel [address] [place] [address] [phone] BUN 19 mg/dL High 7-18 Creatinine 1.2 mg/dL N 0.6-1.3 Glom Filtration Rate, Estimate >60 mL/min >60 If >60 mL/min >60 39 BUN/Creat 15.8 ratio Sodium 139 mmol/L N 136-145 Potassium 4.2 mmol/L N 3.5-5.1 Chloride 103 mmol/L N 98-107 Carbon Dioxide 31 mmol/L N 21-32 Anion Gap 5 mEq/L Low 8-16 Calcium 8.7 mg/dL N 8.5-10.1 Total Protein 7.5 g/dL N 6.4-8.2 Albumin 3.5 g/dL N 3.4-5.0 Globulin 4.0 g/dL N 1.9-4.3 Alb/Glob 0.9 ratio Bilirubin,Total 0.3 mg/dL N 0.2-1.0 Sgot/Ast 49 U/L High 15-37 SGPT/Alt 111 U/L High 12-78 Alkaline Phosphatase 83 U/L N 45-117 Alt SerPl-cCnc 12/29/2017 N2N/CCD Import Alt SerPl-cCnc 111 High 12-78 Albumin/Glob SerPl 12/29/2017 N2N/CCD Import Albumin/Glob SerPl 0.9 Anion Gap 12/29/2017 N2N/CCD Import Anion Gap 5 Low 8-16 SerPl-sCnc SerPl-sCnc Automated blood 12/29/2017 N2N/CCD Import Automated blood 0.01 0.0-0.1 basophil count basophil count (count/volume) (count/volume) Automated blood 12/29/2017 N2N/CCD Import Automated blood 0.12 0.0-0.5 eosinophil count eosinophil count Automated blood 12/29/2017 N2N/CCD Import Automated blood 41.1 38.0- 48.0 hematocrit (volume hematocrit (volume fraction) fraction) Automated blood 12/29/2017 N2N/CCD Import Automated blood 1.46 1.0-4.0 lymphocyte count lymphocyte count (number/volume) (number/volume) Automated blood 12/29/2017 N2N/CCD Import Automated blood 151 Low 155- 360 platelet count platelet count Automated blood 12/29/2017 N2N/CCD Import Automated blood 11.3 High 6.6- 10.6 platelet mean platelet mean volume measurement volume measurement Automated 12/29/2017 N2N/CCD Import Automated 29.7 27.0-33.0 erythrocyte mean erythrocyte mean corpuscular corpuscular hemoglobin hemoglobin (mass per erythrocyte) Automated 12/29/2017 N2N/CCD Import Automated 33.8 31.7-36.0 erythrocyte mean erythrocyte mean corpuscular corpuscular hemoglobin hemoglobin concentration measurement (mass/volume) Automated 12/29/2017 N2N/CCD Import Automated 87.8 80.0-96.0 erythrocyte mean erythrocyte mean corpuscular volume corpuscular volume BUN/Creat SerPl 12/29/2017 N2N/CCD Import BUN/Creat SerPl 15.8 Basophils/leuk NFr 12/29/2017 N2N/CCD Import Basophils/leuk NFr 0.2 0.0- 1.1 Bld Auto Bld Auto Potassium 12/29/2017 N2N/CCD Import Potassium 4.2 3.5-5.1 [facility] SerP-sCnc Neutrophils/leuk 12/29/2017 N2N/CCD Import Neutrophils/leuk 52.0 33.0- 73.0 NFr Bld Auto NFr Bld Auto Neutrophils # Bld 12/29/2017 N2N/CCD Import Neutrophils # Bld 2.27 1.8- 7.0 Auto Auto Monocytes/leuk NFr 12/29/2017 N2N/CCD Import Monocytes/leuk NFr 11.7 High 0.0-10.0 Bld Auto Bld Auto Lymphocytes/leuk 12/29/2017 N2N/CCD Import Lymphocytes/leuk 33.4 20.0- 42.0 NFr Bld Auto NFr Bld Auto Hgb A1c MFr Bld 12/29/2017 N2N/CCD Import Hgb A1c MFr Bld 7.7 High 4.2- 6.3 Globulin Ser 12/29/2017 N2N/CCD Import Globulin Ser 4.0 1.9-4.3 Calc-mCnc Calc-mCnc Eosinophil/leuk 12/29/2017 N2N/CCD Import Eosinophil/leuk 2.7 0.0-6.6 NFr Bld Auto NFr Bld Auto Chloride 12/29/2017 N2N/CCD Import Chloride 103 98-107 SerPl-sCnc SerPl-sCnc Blood monocytes 12/29/2017 N2N/CCD Import Blood monocytes 0.51 0.0-0.8 automated count automated count (number/volume) (number/volume) Blood leukocytes 12/29/2017 N2N/CCD Import Blood leukocytes 4.4 3.4- 10.5 automated count automated count (number/volume) (number/volume) Blood erythrocytes 12/29/2017 N2N/CCD Import Blood erythrocytes 4.68 4.20-5.80 automated count automated count (number/volume) (number/volume) Blood estimated 12/29/2017 N2N/CCD Import Blood estimated 174 average glucose average glucose determination by e determination by estimation from glycated hemoglobin (mass/volume) Blood hemoglobin 12/29/2017 N2N/CCD Import Blood hemoglobin 13.9 12.8- 17.0 measurement measurement (mass/volume) (mass/volume) Capillary blood 11/05/2017 N2N/CCD Import Capillary blood 144 High 70- 110 glucose glucose measurement by measurement by glucometer glucometer (mass/volume) Basic Metabolic 10/30/2017 [facility] Glucose 202 High 74-106 [address] mg/[place] [address] [phone] BUN 20 mg/dL High 7-18 Creatinine 1.1 mg/dL N 0.6-1.3 Glom Filtration Rate, Estimate >60 mL/min >60 If >60 mL/min >60 41 BUN/Creat 18.1 ratio Sodium 139 mmol/L N 136-145 Potassium 4.4 mmol/L N 3.5-5.1 Chloride 105 mmol/L N 98-107 Carbon Dioxide 27 mmol/L N 21-32 Anion Gap 7 mEq/L Low 8-16 Calcium 9.0 mg/dL N 8.5-10.1 Liver Function Tests 10/30/2017 [facility] Total Protein 7.8 g/dL N 6.4-8.2 [address] [place] [address] [phone] Albumin 3.8 g/dL N 3.4-5.0 Globulin 4.0 g/dL N 1.9-4.3 Alb/Glob 1.0 ratio Bilirubin,Total 0.3 mg/dL N 0.2-1.0 Bilirubin,Direct < 0.1 mg/dL N 0.0-0.2 Bilirubin,Indirect 0.2 mg/dL N 0.0-0.9 Sgot/Ast 70 U/L High 15-37 SGPT/Alt 113 U/L High 12-78 Alkaline Phosphatase 73 U/L N 45-117 Laboratory test 10/30/2017 [facility] Act Partial 24.9 seconds N 23.4-35.0 42 finding [address] [facility] [place] [address] [phone] Protime 10/30/2017 [facility] Protime 12.8 seconds N 12.0-14.4 [address] [place] [address] [phone] Inr 1.0 N 0.9-1.1 43 CBC 10/30/2017 [facility] White Blood Count 5.2 K/uL N 3.4-10.5 [address] [place] [address] [phone] Red Blood Count 4.93 M/uL N 4.20-5.80 Hemoglobin 14.6 gm/dL N 12.8-17.0 Hematocrit 43.0 % N 38.0-48.0 Mean Cell Volume 87.2 fl N 80.0-96.0 Mean Corpuscular HGB 29.6 pg N 27.0-33.0 Mean Corpuscular HGB Conc 34.0 g/dL N 31.7-36.0 Platelet Count 159 K/uL N 155-360 Red Cell Distri Width %CV 13.6 % N 11.6-15.8 Mean Platelet Volume 11.3 fL High 6.6-10.6 Platelet poor 10/30/2017 N2N/CCD Import Platelet poor 1.0 0.9-1.1 plasma plasma international international normalized rati normalized ratio (Inr) by coagulation assay (relative time) Prothrombin time 10/30/2017 N2N/CCD Import Prothrombin time 12.8 12.0- 14.4 (PT) in platelet (PT) in platelet poor plasma poor plasma Serum or plasma 10/30/2017 N2N/CCD Import Serum or plasma 0.2 0.0-0.9 indirect bilirubin indirect bilirubin measurement (ma measurement (mass/volume) Comprehensive 10/12/2017 [facility] Glucose 185 High 74-106 44 Metabolic Panel [address] mg/[place] [address] [phone] BUN 17 mg/dL N 7-18 Creatinine 1.2 mg/dL N 0.6-1.3 Glom Filtration Rate, Estimate >60 mL/min >60 If >60 mL/min >60 45 BUN/Creat 14.1 ratio Sodium 140 mmol/L N 136-145 Potassium 4.1 mmol/L N 3.5-5.1 Chloride 105 mmol/L N 98-107 Carbon Dioxide 29 mmol/L N 21-32 Anion Gap 6 mEq/L Low 8-16 Calcium 9.0 mg/dL N 8.5-10.1 Total Protein 7.6 g/dL N 6.4-8.2 Albumin 3.5 g/dL N 3.4-5.0 Globulin 4.1 g/dL N 1.9-4.3 Alb/Glob 0.9 ratio Bilirubin,Total 0.3 mg/dL N 0.2-1.0 Sgot/Ast 34 U/L N 15-37 SGPT/Alt 64 U/L N 12-78 Alkaline Phosphatase 58 U/L N 45-117 Glycohemoglobin 10/12/2017 [facility] Glycohemoglobin 7.2 % High 4.2-6.3 [address] (A1c) [place] [address] [phone] eAG 160 mg/dL Microalb/Creat 10/12/2017 [facility] Microalbumin,Urine 12.2 < 20.0 Ratio,Random [address] mg/L [place], [place] [id number] [phone] Microalbumin/Creatinine Ratio 8.0 ug/mgCrt < 30.0 Urine Creatinine Conc 153 mg/dL LDL Cholesterol Profile 10/12/2017 [facility] Cholesterol 111 mg/dL <[address] [place], [place] [id number] [phone] Triglycerides 163 mg/dL High <150 48 HDL Cholesterol 25 mg/dL Low >40 49 LDL-Cholesterol 53 mg/dL < 100 50 Laboratory test 10/09/2017 [facility] Triglycerides 129 mg/dL <150 51, [address] [place] [address] [phone] Hepatitis C Antibody < 0.1 s/corat 0.0-0.9 53 Ceruloplasmin 10/09/2017 [facility] Ceruloplasmin 24.0 mg/dL 16.0-31.[address] [place] [address] [phone] Height 5 9 Weight 217 Ramirez Fibrosure 10/09/2017 [facility] Ramirez Fibrosis 0.29 High 0.00-0.[address] [place] [address] [phone] Ramirez Fibrosis Stage (SEE NOTE) 55 Ramirez Steatosis Score 0.76 High 0.00-0.30 Ramirez Steatosis Grade (SEE NOTE) 56 Ramirez Score 0.50 0.25 Ramirez Grade (SEE NOTE) 57 Height 60 Inches . Weight Measured 217 LBS . [id number] 224 mg/dL 110-276 Haptoglobin 234 mg/dL High 34-200 Apolipoprotein A-1 94 mg/dL Low 101-178 Bilirubin,Total 0.3 mg/dL 0.0-1.2 GGT 32 IU/L 0-65 Alt (SGPT) 55 IU/L 0-55 Alt (Sgot) P5P 37 IU/L 0-40 Cholesterol,Total 118 mg/dL 100-199 Glucose, Serum 159 mg/dL High 65-99 Triglycerides 130 mg/dL 0-149 Ramirez Interpretations: (SEE NOTE) 58 Fibrosis Scoring (SEE NOTE) 59 Steatosis Grading (SEE NOTE) 60 Ramirez Scoring (SEE NOTE) 61 Ramirez Limitations (SEE NOTE) 62 Ramirez Comment 2 (SEE NOTE) 63 Height 5 9 Weight 217 Aspartate 10/09/2017 N2N/CCD Import Aspartate 37 0-40 aminotransferase aminotransferase [Enzymatic [Enzymatic activity/vol activity/volume] in Serum or Plasma by With P-5'-P Body height Measured 10/09/2017 N2N/CCD Import Body height Measured 60 . Body weight Measured 10/09/2017 N2N/CCD Import Body weight Measured 217 . Cholesterol 10/09/2017 N2N/CCD Import Cholesterol 118 100-199 [Mass/volume] in [Mass/volume] in Serum or Plasma Serum or Plasma Fibrosis score 10/09/2017 N2N/CCD Import Fibrosis score 0.29 High 0.00- 0. 21 Glucose [Mass/volume] 10/09/2017 N2N/CCD Import Glucose 159 High 65-99 in Serum or Plasma [Mass/volume] in Serum or Plasma Necroinflammatory 10/09/2017 N2N/CCD Import Necroinflammatory 0.50 0.25 activity score activity score Serum or plasma 10/09/2017 N2N/CCD Import Serum or plasma 55 0-55 alanine alanine aminotransferase aminotransferase measureme measurement with P-5'-P (enzymatic activity/volume) Serum or plasma 10/09/2017 N2N/CCD Import Serum or plasma 224 110-276 [id number] [id number] measurement n measurement (mass/volume) Serum or plasma 10/09/2017 N2N/CCD Import Serum or plasma 94 Low 101-178 apolipoprotein A-I apolipoprotein A-I measurement (ma measurement (mass/volume) Serum or plasma 10/09/2017 N2N/CCD Import Serum or plasma 24.0 16.0-31 ceruloplasmin ceruloplasmin .0 measurement (mass/vo measurement (mass/volume) Serum or plasma gamma 10/09/2017 N2N/CCD Import Serum or plasma 32 0-65 glutamyl transferase gamma glutamyl measure transferase measurement (enzymatic activity/volume) Serum or plasma 10/09/2017 N2N/CCD Import Serum or plasma 234 High 34- 200 haptoglobin haptoglobin measurement measurement (mass/volu (mass/volume) Serum or plasma total 10/09/2017 N2N/CCD Import Serum or plasma 0.3 0.0- 1.2 bilirubin measurement total bilirubin (mass/ measurement (mass/volume) Service comment 10/09/2017 N2N/CCD Import Service comment See 64 Note Unloinc 10/09/2017 N2N/CCD Import Unloinc 0.76 High 0.00-0. 30 Unloinc See Note 65 Unloinc See Note 66 Unloinc See Note 67 Unloinc See Note 68 Microalb/Creat 06/15/2017 [facility] Microalbumin/Creatinine TNP < 69, Ratio,Random [address] Ratio ug/mgCrt 30.0 [address] [place], [place] [id number] [phone] Urine Creatinine Conc 29 mg/dL Microalbumin,Random 06/15/2017 [facility] Microalbumin,Urine < 5.0 < Urine [address] mg/L 20.0 [place] [address] [phone] Comprehensive 06/12/2017 [facility] Glucose 116 High 74-10 71 Metabolic Panel [address] mg/dL 6 [place] [address] [phone] BUN 16 mg/dL N 7-18 Creatinine 1.2 mg/dL N 0.6-1.3 Glom Filtration Rate, Estimate >60 mL/min >60 If >60 mL/min >60 72 BUN/Creat 13.3 ratio Sodium 143 mmol/L N 136-145 Potassium 4.4 mmol/L N 3.5-5.1 Chloride 110 mmol/L High 98-107 Carbon Dioxide 29 mmol/L N 21-32 Anion Gap 4 mEq/L Low 8-16 Calcium 8.6 mg/dL N 8.5-10.1 Total Protein 7.5 g/dL N 6.4-8.2 Albumin 3.6 g/dL N 3.4-5.0 Globulin 3.9 g/dL N 1.9-4.3 Alb/Glob 0.9 ratio Bilirubin,Total 0.3 mg/dL N 0.2-1.0 Sgot/Ast 32 U/L N 15-37 SGPT/Alt 64 U/L N 12-78 Alkaline Phosphatase 54 U/L N 45-117 CBS W/Automated Diff 06/12/2017 [facility] White Blood 4.2 K/uL N 3.4-10.[address] [place] [address] [phone] Red Blood Count 4.82 M/uL N 4.20-5.80 Hemoglobin 14.3 gm/dL N 12.8-17.0 Hematocrit 42.7 % N 38.0-48.0 Mean Cell Volume 88.6 fl N 80.0-96.0 Mean Corpuscular HGB 29.7 pg N 27.0-33.0 Mean Corpuscular HGB Conc 33.5 g/dL N 31.7-36.0 Platelet Count 202 K/uL N 150-400 Red Cell Distri Width SD 45.0 fl N 36-51 Red Cell Distri Width %CV 14.3 % N 11.6-15.8 Mean Platelet Volume 11.2 fL High 6.6-10.6 Neut% 49.1 % N 33.0-73.0 Lymph % 37.1 % N 20.0-42.0 [place] % 11.2 % High 0.0-10.0 Eo% 2.1 % N 0.0-6.6 Bas% 0.5 % N 0.0-1.1 Neut# 2.06 K/uL N 1.8-7.0 Lymph # 1.56 K/uL N 1.0-4.0 [place] # 0.47 K/uL N 0.0-0.8 Eos # 0.09 K/uL N 0.0-0.5 Baso # 0.02 K/uL N 0.0-0.1 LDL Cholesterol Profile 06/12/2017 [facility] Cholesterol 103 mg/dL <200 73 [address] [place] [address] [phone] Triglycerides 116 mg/dL <150 74 HDL Cholesterol 29 mg/dL Low >40 75 LDL-Cholesterol 51 mg/dL < 100 76 Glycohemoglobin A1c 06/12/2017 [facility] Glycohemoglobin 6.0 % N 4.2-6.[address] (A1c) [place], [place] [id number] [phone] eAG 126 mg/dL Poct glucose 02/03/2017 N2N/CCD Import Glucose, Poc 178 mg/dL High 70 - 99 Basic metabolic panel 02/02/2017 N2N/CCD Import Anion Gap 9 mmol/L 7 - 16 BUN/Creatinine Ratio 19.4 Ratio 10.0 - 20.0 Calcium 8.6 mg/dL 8.4 - 10.2 Chloride 103 mmol/L 100 - 108 Co2 26 mmol/L 22 - 31 Creatinine 0.93 mg/dL 0.80 - 1.30 GFR MDRD Af Amer >60 >59 ml/min/1.73m2 GFR MDRD Non Af Amer >60 >59 ml/min/1.73m2 Glom Filt Rate, Est See Notes Glucose 211 mg/dL High 70 - 99 Potassium 4.2 mmol/L 3.6 - 5.2 Sodium 138 mmol/L 136 - 145 Urea nitrogen 18 mg/dL 7 - 24 CBC 02/02/2017 N2N/CCD Import Hematocrit 33.0 % Low 41.0 - 53.0 Hemoglobin 11.2 g/dL Low 13.5 - 18.0 MCH 30.3 pg 27.0 - 32.0 MCHC 34.1 g/dL 32.0 - 36.0 MCV 89.0 fL 80.0 - 95.0 MPV 8.6 fL 7.1 - 10.7 Platelets 171 10*3/uL 150 - 450 RBC 3.70 10*6/uL Low 4.60 - 6.10 RDW 14.0 % 10.5 - 14.5 WBC 5.8 10*3/uL 4.1 - 11.0 Hematocrit 01/30/2017 N2N/CCD Import Hematocrit 33.1 % Low 41.0 - 53.0 Amylase 01/30/2017 N2N/CCD Import Amylase 37 U/L 25 - 115 Poc Arterial 01/29/2017 N2N/CCD Import Performed by: Performed By Blood Gas w [facility] Clinical Lytes Staff Poc Art O2 Sat 100 % High 95 - 99 Poc Base Deficit 2 Mmol/L 0 - 2 Poc Fio2 Test Not Performed Poc Glucose (iStat) 195 MG/DL High 70 - 99 Poc Hco3 23.2 Mmol/L 21.0 - 29.0 Poc Hematocrit 36 % Low 41.0 - 53.0 Poc Ionized Calcium 4.2 MG/DL Low 4.6 - 5.3 Poc Potassium 3.9 Mmol/L 3.6 - 5.2 Poc Sodium 138 Mmol/L 136 - 145 Poc Source Arterial Poc Temp Test Not Performed Poc Total Co2 24 Mmol/L 23.0 - 32.0 Poc pCO2 41.3 MMHG 32.0 - 48.0 Poc pH 7.36 pH 7.35 - 7.45 Poc pO2 318 MMHG High 83 - 108 Prepare RBC 01/29/2017 N2N/CCD Import Blood Component Type Leukopoor Red Cells Blood Component Type Leukopoor Red Cells Blood Component Type Leukopoor Red Cells Blood Component Type Leukopoor Red Cells Crossmatch Compatible Crossmatch Compatible Crossmatch Compatible Crossmatch Compatible Specimen Expiration Date 02/01/2017 Testing site Performed At [address] [place] [address] Transfusion status Ok To Transfuse Transfusion status Ok To Transfuse Transfusion status Ok To Transfuse Transfusion status Ok To Transfuse Unit Division 0 1 Unit Division 0 1 Unit Division 0 1 Unit Division 0 1 Unit Number [id number] Unit Number [id number] Unit Number [id number] Unit Number [id number] Unit status Rel From Alloc Unit status Rel From Alloc Unit status Rel From Alloc Unit status Rel From Alloc Type and screen 01/15/2017 N2N/CCD Import Antibody Screen Negative Blood bank comment See Notes Patient Abo/Rh B Positive Specimen Expiration Date 01/30/2017 Testing site Performed At [address] [place] [id number] Protime-Inr 01/15/2017 N2N/CCD Import Inr 0.97 1 Protime 10.1 s 9.2 - 11.9 Hemoglobin A1c 01/15/2017 N2N/CCD Import Est. Average Glucose 160 mg/dL Hemoglobin A1c 7.2 % High 4.0 - 6.0 Comprehensive metabolic 01/15/2017 N2N/CCD Import Alb/Glob ratio 1.1 Ratio panel Albumin 4.2 g/dL 3.5 - 4.6 Alkaline Phosphatase 81 U/L 45 - 117 Alt 103 U/L High 12 - 78 Anion Gap 10 mmol/L 7 - 16 Ast 62 U/L High 11 - 39 BUN/Creatinine Ratio 11.9 Ratio 10.0 - 20.0 Bilirubin, Total 0.4 mg/dL 0.0 - 1.0 Calcium 9.9 mg/dL 8.4 - 10.2 Chloride 107 mmol/L 100 - 108 Co2 25 mmol/L 22 - 31 Creatinine 1.26 mg/dL 0.80 - 1.30 GFR MDRD Af Amer >60 >59 ml/min/1.73m2 GFR MDRD Non Af Amer 59 ml/min/1.73m2 Low >59 Globulin 3.7 g/dL 2.7 - 4.3 Glom Filt Rate, Est See Notes Glucose 91 mg/dL 70 - 99 Potassium 4.9 mmol/L 3.6 - 5.2 Protein, Total 7.9 g/dL 6.4 - 8.2 Sodium 142 mmol/L 136 - 145 Urea nitrogen 15 mg/dL 7 - 24 CBC 01/15/2017 N2N/CCD Import Hematocrit 44.6 % 41.0 - 53.0 Hemoglobin 14.6 g/dL 13.5 - 18.0 MCH 29.8 pg 27.0 - 32.0 MCHC 32.8 g/dL 32.0 - 36.0 MCV 90.9 fL 80.0 - 95.0 MPV 9.3 fL 7.1 - 10.7 Platelets 236 10*3/uL 150 - 450 RBC 4.91 10*6/uL 4.60 - 6.10 RDW 14.2 % 10.5 - 14.5 WBC 7.0 10*3/uL 4.1 - 11.0 Comprehensive 11/13/2016 [facility] Glucose 201 mg/dL High 74-106 78 Metabolic Panel [address] [place] [address] [phone] BUN 21 mg/dL High 7-18 Creatinine 1.3 mg/dL N 0.6-1.3 Glom Filtration Rate, Estimate 60 mL/min >60 If >60 mL/min >60 79 BUN/Creat 16.1 ratio Sodium 139 mmol/L N 136-145 Potassium 4.1 mmol/L N 3.5-5.1 Chloride 105 mmol/L N 98-107 Carbon Dioxide 27 mmol/L N 21-32 Anion Gap 7 mEq/L Low 8-16 Calcium 9.2 mg/dL N 8.5-10.1 Total Protein 7.7 g/dL N 6.4-8.2 Albumin 3.6 g/dL N 3.4-5.0 Globulin 4.1 g/dL N 1.9-4.3 Alb/Glob 0.9 ratio Bilirubin,Total 0.3 mg/dL N 0.2-1.0 Sgot/Ast 28 U/L N 15-37 SGPT/Alt 75 U/L N 12-78 Alkaline Phosphatase 77 U/L N 45-117 LDL Cholesterol Profile 11/13/2016 [facility] Cholesterol 90 mg/dL <200 80 [address] [place] [address] [phone] Triglycerides 320 mg/dL High <150 81 HDL Cholesterol 24 mg/dL Low >40 82 LDL-Cholesterol 2 mg/dL < 100 83 Glycohemoglobin 11/13/2016 [facility] Glycohemoglobin 7.8 % High 4.2-6.3 [address] (A1c) [place] [address] [phone] eAG 177 mg/dL CBS W/Automated Diff 11/13/2016 [facility] White Blood 5.1 K/uL N 3.4-10.[address] [place] [address] [phone] Red Blood Count 4.87 M/uL N 4.20-5.80 Hemoglobin 14.7 gm/dL N 12.8-17.0 Hematocrit 43.2 % N 38.0-48.0 Mean Cell Volume 88.7 fl N 80.0-96.0 Mean Corpuscular HGB 30.2 pg N 27.0-33.0 Mean Corpuscular HGB Conc 34.0 g/dL N 31.7-36.0 Platelet Count 218 K/uL N 150-400 Red Cell Distri Width SD 44.0 fl N 36-51 Red Cell Distri Width %CV 13.7 % N 11.6-15.8 Mean Platelet Volume 11.4 fL High 6.6-10.6 Neut% 49.0 % N 33.0-73.0 Lymph % 37.6 % N 20.0-42.0 [place] % 10.6 % High 0.0-10.0 Eo% 2.2 % N 0.0-6.6 Bas% 0.6 % N 0.0-1.1 Neut# 2.50 K/uL N 1.8-7.0 Lymph # 1.92 K/uL N 1.0-4.0 [place] # 0.54 K/uL N 0.0-0.8 Eos # 0.11 K/uL N 0.0-0.5 Baso # 0.03 K/uL N 0.0-0.1 CBS W/Automated 07/11/2016 [facility] White Blood 4.2 K/uL N 3.4-10.5 [address] [place] [address] [phone] Red Blood Count 4.73 M/uL N 4.20-5.80 Hemoglobin 14.3 gm/dL N 12.8-17.0 Hematocrit 42.6 % N 38.0-48.0 Mean Cell Volume 90.1 fl N 80.0-96.0 Mean Corpuscular HGB 30.2 pg N 27.0-33.0 Mean Corpuscular HGB Conc 33.6 g/dL N 31.7-36.0 Platelet Count 177 K/uL N 150-400 Red Cell Distri Width SD 43.1 fl N 36-51 Red Cell Distri Width %CV 13.5 % N 11.6-15.8 Mean Platelet Volume 11.1 fL High 6.6-10.6 Neut% 46.6 % N 33.0-73.0 Lymph % 37.3 % N 17.0-56.0 [place] % 13.5 % High 0.0-10.0 Eo% 2.1 % N 0.0-5.0 Bas% 0.5 % N 0.1-1.0 Neut# 1.96 K/uL N 1.8-7.0 Lymph # 1.57 K/uL Low 1.8-7.0 [place] # 0.57 K/uL N 0.0-0.8 Eos # 0.09 K/uL N 0.0-0.5 Baso # 0.02 K/uL Low 0.1-0.2 Comprehensive Metabolic 07/11/2016 [facility] Glucose 186 mg/dL High 74-106 Panel [address] [place] [address] [phone] BUN 17 mg/dL N 7-18 Creatinine 1.2 mg/dL N 0.6-1.3 Glom Filtration Rate, Estimate >60 mL/min N >60 If >60 mL/min N >60 86 BUN/Creat 14.1 ratio N Sodium 140 mmol/L N 136-145 Potassium 4.5 mmol/L N 3.5-5.1 Chloride 106 mmol/L N 98-107 Carbon Dioxide 29 mmol/L N 21-32 Anion Gap 5 mEq/L Low 8-16 Calcium 8.5 mg/dL N 8.5-10.1 Total Protein 7.4 g/dL N 6.4-8.2 Albumin 3.6 g/dL N 3.4-5.0 Globulin 3.8 g/dL N 1.9-4.3 Alb/Glob 0.9 ratio N Bilirubin,Total 0.4 mg/dL N 0.2-1.0 Sgot/Ast 45 U/L High 15-37 SGPT/Alt 93 U/L High 12-78 Alkaline Phosphatase 79 U/L N 45-117 Glycohemoglobin 07/11/2016 [facility] Glycohemoglobin 8.0 % High 4.2-6.3 87 A1c [address] [facility] (A1c) [place], [place] [id number] [phone] eAG 183 mg/dL N LDL Cholesterol Profile 07/11/2016 [facility] Cholesterol 105 mg/dL N <200 88 [address] [place], [place] [id number] [phone] Triglycerides 286 mg/dL High <150 89 HDL Cholesterol 21 mg/dL Low >40 90 LDL-Cholesterol 27 mg/dL N < 100 91 Basic Metabolic Panel 11/22/2015 [facility] Glucose 123 mg/dL High 74-106 [address] [place], [place] [id number] [phone] BUN 22 mg/dL High 7-18 Creatinine 1.2 mg/dL 0.6-1.3 Glom Filtration Rate, Estimate >60 mL/min >60 If >60 mL/min >60 92 BUN/Creat 18.3 ratio Sodium 140 mmol/L 136-145 Potassium 4.0 mmol/L 3.5-5.1 Chloride 105 mmol/L 98-107 Carbon Dioxide 27 mmol/L 21-32 Anion Gap 8 mEq/L 8-16 Calcium 8.8 mg/dL 8.5-10.1 Laboratory test finding 11/24/2014 [facility] BUN 23 mg/dL High 7-18 [address], [place] [id number] [phone] Basic Metabolic Panel 11/20/2014 [facility] Glucose 109 mg/dL High 74-106 [address] [place], [place] [id number] [phone] BUN 16 mg/dL 7-18 Creatinine 1.4 mg/dL High 0.6-1.3 Glom Filtration Rate, Estimate 56 mL/min >60 If >60 mL/min >60 93 BUN/Creat 11.4 ratio Sodium 139 mmol/L 136-145 Potassium 4.3 mmol/L 3.5-5.1 Chloride 107 mmol/L 98-107 Carbon Dioxide 28 mmol/L 21-32 Anion Gap 4 mEq/L Low 8-16 Calcium 9.0 mg/dL 8.5-10.1 Liver Function Tests 07/31/2014 [facility] Total Protein 7.4 g/dL 6.4-8.2 [address] [place] [address] [phone] Albumin 3.6 g/dL 3.4-5.0 Globulin 3.8 g/dL 1.9-4.3 Alb/Glob 0.9 ratio Bilirubin,Total 0.4 mg/dL 0.2-1.0 Bilirubin,Direct < 0.1 mg/dL 0.0-0.2 Bilirubin,Indirect 0.3 mg/dL 0.0-0.9 Sgot/Ast 32 U/L 15-37 SGPT/Alt 69 U/L 12-78 Alkaline Phosphatase 74 U/L 45-117 LDL Cholesterol 07/31/2014 [facility] Cholesterol 105 mg/dL < 200 94 Profile [address] [place] [address] [phone] Triglycerides 163 mg/dL < 150 95 HDL Cholesterol 22 mg/dL > 40 96 LDL-Cholesterol 50 mg/dL < 100 97 Basic Metabolic Panel 07/31/2014 [facility] Glucose 149 mg/dL High 74-106 [address] [place] [address] [phone] BUN 13 mg/dL 7-18 Creatinine 1.1 mg/dL 0.6-1.3 Glom Filtration Rate, Estimate >60 mL/min >60 If >60 mL/min >60 98 BUN/Creat 11.8 ratio Sodium 138 mmol/L 136-145 Potassium 4.5 mmol/L 3.5-5.1 Chloride 106 mmol/L 98-107 Carbon Dioxide 23 mmol/L 21-32 Anion Gap 14 mEq/L 8-16 Calcium 9.2 mg/dL 8.5-10.1 Basic Metabolic Panel See Note 99 Glycohemoglobin 07/31/2014 [facility] Glycohemoglobin 6.9 % High 4.2-6.3 100 A1c [address] [facility] (A1c) [place] [address] [phone] eAG 151 mg/dL LDL Cholesterol 04/08/2013 [facility] Cholesterol 97 mg/dL Low 120-200 Profile [address] [place] [address] [phone] Triglycerides 426 mg/dL High 16-231 HDL Cholesterol 19 mg/dL Low 29-83 LDL-Cholesterol See Note mg/dL 62-185 101 Liver Function Tests 04/08/2013 [facility] Total Protein 7.1 g/dL 6.3-8.0 [address] [place] [address] [phone] Albumin 3.7 g/dL 3.5-5.0 Globulin 3.4 g/dL 1.9-4.3 Alb/Glob 1.1 ratio Bilirubin,Total 0.3 mg/dL 0.2-1.2 Bilirubin,Direct < 0.1 mg/dL Low 0.1-0.4 Bilirubin,Indirect 0.2 mg/dL 0.0-0.9 Sgot/Ast 35 U/L 16-40 SGPT/Alt 65 U/L 30-65 Alkaline Phosphatase 99 U/L 50-136 Laboratory test 04/08/2013 [facility] Thyroid Stim 1.78 uIU/mL 0.49-4.67 finding [address] [facility] [place] [address] [phone] CBS W/Automated 04/08/2013 [facility] White Blood 6.0 K/uL 3.4-10.5 Diff [facility] [place] [address] [phone] Red Blood Count 4.82 M/uL 4.20-5.80 Hemoglobin 14.4 gm/dL 12.8-17.0 Hematocrit 42.4 % 38.0-48.0 Mean Cell Volume 88.0 fl 80.0-96.0 Mean Corpuscular HGB 29.9 pg 27.0-33.0 Mean Corpuscular HGB Conc 34.0 g/dL 31.7-36.0 Platelet Count 205 K/uL 150-400 Red Cell Distri Width SD 40.1 fl 36-51 Red Cell Distri Width %CV 12.9 % 11.6-15.8 Mean Platelet Volume 11.5 fL High 6.6-10.6 Neut% 56.1 % 33.0-73.0 Lymph % 32.2 % 17.0-56.0 [place] % 10.5 % High 0.0-10.0 Eo% 1.0 % 0.0-5.0 Bas% 0.2 % 0.1-1.0 Neut# 3.36 K/uL 1.8-7.0 Lymph # 1.93 K/uL 1.2-4.0 [place] # 0.63 K/uL High 0.0-0.6 Eos # 0.06 K/uL 0.0-0.5 Baso # 0.01 K/uL Low 0.1-0.2 Basic Metabolic Panel 04/08/2013 [facility] Glucose 270 mg/dL High 76-[address] [place], [place] [id number] [phone] BUN 17 mg/dL 5-23 Creatinine 1.0 mg/dL 0.5-1.4 Glom Filtration Rate, Estimate >60 mL/min >60 If >60 mL/min >60 102 BUN/Creat 17.0 ratio Sodium 138 mmol/L 136-145 Potassium 4.2 mmol/L 3.5-5.1 Chloride 104 mmol/L 98-107 Carbon Dioxide 27 mEq/L 18-29 Anion Gap 11 mEq/L 8-16 Calcium 8.8 mg/dL 8.5-10.1 Glycohemoglobin 04/08/2013 [facility] Glycohemoglobin 11.9 % High 4.8-6.0 103 A1c [address] (A1c) [place] [address] [phone] eAG 295 mg/dL Laboratory test 04/08/2013 [facility] Prostate 1.41 0.0-4.0 [address] Specific Antigen ng/[place] [address] [phone] LDL Cholesterol 12/20/2012 [facility] Cholesterol 129 mg/dL 120-200 Profile [address] [place] [address] [phone] Triglycerides 555 mg/dL High 16-231 HDL Cholesterol 23 mg/dL Low 29-83 LDL-Cholesterol See Note mg/dL 62-185 105 Liver Function Tests 12/20/2012 [facility] Total Protein 7.8 g/dL 6.3-8.0 [address] [place] [address] [phone] Albumin 3.7 g/dL 3.5-5.0 Globulin 4.1 g/dL 1.9-4.3 Alb/Glob 0.9 ratio Bilirubin,Total 0.3 mg/dL 0.2-1.2 Bilirubin,Direct < 0.1 mg/dL Low 0.1-0.4 Bilirubin,Indirect 0.2 mg/dL 0.0-0.9 Sgot/Ast 26 U/L 16-40 SGPT/Alt 68 U/L High 30-65 Alkaline Phosphatase 134 U/L 50-136 Comprehensive Metabolic 03/05/2012 [facility] Glucose 270 mg/dL High 76-115 Panel [address] [place], [place] [id number] [phone] BUN 15 mg/dL 5-23 Creatinine 1.2 mg/dL 0.5-1.4 Glom Filtration Rate, Estimate >60 mL/min >60 If >60 mL/min >60 106 BUN/Creat 12.5 ratio Sodium 136 mmol/L 136-145 Potassium 4.4 mmol/L 3.5-5.1 Chloride 101 mmol/L 98-107 Carbon Dioxide 27 mEq/L 18-29 Anion Gap 12 mEq/L 8-16 Calcium 8.7 mg/dL 8.5-10.1 Total Protein 7.7 g/dL 6.3-8.0 Albumin 3.6 g/dL 3.5-5.0 Globulin 4.1 g/dL 1.9-4.3 Alb/Glob 0.9 ratio Bilirubin,Total 0.6 mg/dL 0.2-1.2 Sgot/Ast 37 U/L 16-40 SGPT/Alt 76 U/L High 30-65 Alkaline Phosphatase 76 U/L 50-136 CBC W/Automated Diff 03/05/2012 [facility] White Blood 6.2 K/uL 3.4-10.[address] [place] [address] [phone] Red Blood Count 4.78 M/uL 4.20-5.80 Hemoglobin 14.5 gm/dL 12.8-17.0 Hematocrit 42.5 % 38.0-48.0 Mean Cell Volume 88.9 fl 80.0-96.0 Mean Corpuscular HGB 30.3 pg 27.0-33.0 Mean Corpuscular HGB Conc 34.1 g/dL 31.7-36.0 Platelet Count 216 K/uL 150-400 Red Cell Distri Width SD 41.4 fl 36-51 Red Cell Distri Width %CV 13.0 % 11.6-15.8 Mean Platelet Volume 11.0 fL High 6.6-10.6 Neut% 49.2 % 33.0-73.0 Lymph % 37.7 % 17.0-56.0 [place] % 11.4 % High 0.0-10.0 Eo% 1.5 % 0.0-5.0 Bas% 0.2 % 0.1-1.0 Neut# 3.03 K/uL 1.8-7.0 Lymph # 2.32 K/uL 1.2-4.0 [place] # 0.70 K/uL High 0.0-0.6 Eos # 0.09 K/uL 0.0-0.5 Baso # 0.01 K/uL Low 0.1-0.2 LDL Cholesterol 03/05/2012 [facility] Cholesterol 113 mg/dL Low 120-200 Profile [address] [place] [address] [phone] Triglycerides 342 mg/dL High 16-231 HDL Cholesterol 21 mg/dL Low 29-83 LDL-Cholesterol 24 mg/dL Low 62-185 Laboratory test 03/05/2012 [facility] Thyroid Stim 1.62 uIU/mL 0.49-4.67 finding [address] [place] [address] [phone] Prostate Specific Antigen 1.72 ng/mL 0.0-4.0 107 LDL Cholesterol 09/01/2011 [facility] Cholesterol 124 mg/dL 120-200 Profile [address] [place] [address] [phone] Triglycerides 288 mg/dL High 16-231 HDL Cholesterol 20 mg/dL Low 29-83 LDL-Cholesterol 46 mg/dL Low 62-185 Liver Function Tests 09/01/2011 [facility] Total Protein 7.4 g/dL 6.3-8.0 [address] [place] [address] [phone] Albumin 3.7 g/dL 3.5-5.0 Bilirubin,Total 0.4 mg/dL 0.2-1.2 Bilirubin,Direct 0.1 mg/dL 0.1-0.4 Bilirubin,Indirect 0.3 mg/dL 0.0-0.9 Sgot/Ast 44 U/L High 16-40 SGPT/Alt 82 U/L High 30-65 Alkaline Phosphatase 82 U/L 50-136 Globulin 3.7 g/dL 1.9-4.3 Alb/Glob 1.0 ratio CBC W/Automated Diff 09/01/2011 [facility] White Blood 5.8 K/uL 3.4-10.[address] [place] [address] [phone] Red Blood Count 4.98 M/uL 4.20-5.80 Hemoglobin 15.0 gm/dL 12.8-17.0 Hematocrit 44.7 % 38.0-48.0 Mean Cell Volume 89.8 fl 80.0-96.0 Mean Corpuscular HGB 30.1 pg 27.0-33.0 Mean Corpuscular HGB Conc 33.6 g/dL 31.7-36.0 Platelet Count 216 K/uL 150-400 Red Cell Distri Width %CV 12.8 % 11.6-15.8 Mean Platelet Volume 11.0 fL High 6.6-10.6 Neut% 52.9 % 33.0-73.0 Lymph % 34.7 % 17.0-56.0 [place] % 10.8 % High 0.0-10.0 Eo% 1.4 % 0.0-5.0 Bas% 0.2 % 0.1-1.0 Neut# 3.05 K/uL 1.8-7.0 Lymph # 2.00 K/uL 1.2-4.0 [place] # 0.62 K/uL High 0.0-0.6 Eos # 0.08 K/uL 0.0-0.5 Baso # 0.01 K/uL Low 0.1-0.2 Red Cell Distri Width SD 41.3 fl 36-51 Laboratory test 09/01/2011 [facility] Thyroid Stim 1.69 uIU/mL 0.49-4.[address] [place] [place] [address] [phone] Prostate Specific Antigen 1.50 ng/mL 0.0-4.0 108 Liver Function Tests 09/12/2010 [facility] Total Protein 7.7 g/dL 6.3-8.[address] [place] [address] [phone] Albumin 3.8 g/dL 3.5-5.0 Bilirubin,Total 0.5 mg/dL 0.2-1.2 Bilirubin,Direct 0.1 mg/dL 0.1-0.4 Bilirubin,Indirect 0.4 mg/dL 0.0-0.9 Sgot/Ast 53 U/L High 16-40 SGPT/Alt 106 U/L High 30-65 Alkaline Phosphatase 109 U/L 50-136 Globulin 3.9 gm/dL 1.9-4.3 Alb/Glob 1.0 LDL Cholesterol 09/12/2010 [facility] Cholesterol 125 mg/dL 120-200 Profile [address] [place] [address] [phone] Triglycerides 324 mg/dL High 0-210 HDL Cholesterol 24 mg/dL Low 32-96 LDL-Cholesterol 36 mg/dL Low 62-185 LDL Cholesterol 02/19/2010 [facility] Cholesterol 122 mg/dL 120-200 Profile [address] [place] [address] [phone] Triglycerides 357 mg/dL High 0-210 HDL Cholesterol 29 mg/dL Low 32-96 LDL-Cholesterol 22 mg/dL Low 62-185 Liver Function Tests 02/19/2010 [facility] Total Protein 7.5 g/dL 6.3-8.0 [address] [place] [address] [phone] Albumin 3.6 g/dL 3.5-5.0 Bilirubin,Total 0.3 mg/dL 0.2-1.2 Bilirubin,Direct 0.0 mg/dL Low 0.1-0.4 Bilirubin,Indirect 0.3 mg/dL 0.0-0.9 Sgot/Ast 32 U/L 16-40 SGPT/Alt 90 U/L High 30-65 Alkaline Phosphatase 111 U/L 50-136 Globulin 3.9 gm/dL 1.9-4.3 Alb/Glob 0.9 1 E78.5 2 Note: Persistent reduction for 3 months or more in an eGFR <60 mL/min/1.73 m2 defines CKD. Patients with eGFR values >/=60 mL/min/1.73 m2 may also have CKD if evidence of persistent proteinuria is present. The original MDRD equation for estimated GFR is not valid for patients less than 18 years of age. Additional information may be found at www.kdoqi.org. 3 Elevated levels of HbA1c suggest the need for more aggressive treatment of glycemia. The [place] [employer] recommends that a primary goal of therapy should be a HbA1c of <7% and that physicians should re-evaluate the treatment regimen in patients with HbA1c values consistently >8%. 4 Vitamin D deficiency has been defined by the [place] [employer] and an Endocrine Society practice guideline as a level of serum 25-OH vitamin D less than 20 ng/mL (1,2). The Endocrine Society went on to further define vitamin D insufficiency as a level between 21 and 29 ng/mL (2). 1. IOM ([place] [employer]). 2010. Dietary reference intakes for calcium and D. [place]: The National Academies Press. 2. Max KIRBY, Mk HAYS, Nacho JASSO, et al. Evaluation, treatment, and prevention of vitamin D deficiency: an Endocrine Society clinical practice guideline. JCEM. 2010; 96(7):1911-30. Performed at: RN - [facility] [address] [id number] Security Controls Assessor: Karyn Marrero MD, Phone: [phone] 5 Reference Guidelines*: Desirable: ........... < 200 mg/dL Borderline High: ..... 200-239 mg/dL High: ................ >=240 mg/dL * The National Cholesterol Education Program (NCEP) 6 Reference Guidelines*: Normal: ............. < 150 mg/dL Borderline High: .... 150-199 mg/dL High: ............... 200-499 mg/dL Very High: .......... > 500 mg/dL * Source: National Cholesterol Education Program (NCEP) 7 Reference Guidelines*: Low HDL: ..... < 40 mg/dL Normal: ..... 40-60 mg/dL Desirable: ... > 60 mg/dL *The National Cholesterol Education Program(NCEP) 8 Reference Guidelines*: Optimal:........... <100 mg/dL Near Optimal....... 100-129 mg/dL Borderline High.... 130-159 mg/dL High............... 160-189 mg/dL Very High.......... >=190 mg/dL * Source: National Cholesterol Education Program (NCEP) 9 R94.5 10 Performed at: [facility] [address] [id number] Security Controls Assessor: Karyn Marrero MD, Phone: [phone] INFCE Result Units: s/co ratio Negative: < 0.8 Indeterminate: 0.8 - 0.9 Positive: > 0.9 The CDC recommends that a positive HCV antibody result be followed up with a HCV Nucleic Acid Amplification test (522959). Performed at: [facility] [id number] Security Controls Assessor: Karyn Marrero MD, Phone: [phone] 12 E78.5,E11.42 13 Note: Persistent reduction for 3 months or more in an eGFR <60 mL/min/1.73 m2 defines CKD. Patients with eGFR values >/=60 mL/min/1.73 m2 may also have CKD if evidence of persistent proteinuria is present. The original MDRD equation for estimated GFR is not valid for patients less than 18 years of age. Additional information may be found at www.kdoqi.org. 14 Elevated levels of HbA1c suggest the need for more aggressive treatment of glycemia. The [place] [employer] recommends that a primary goal of therapy should be a HbA1c of <7% and that physicians should re-evaluate the treatment regimen in patients with HbA1c values consistently >8%. 15 Vitamin D deficiency has been defined by the [place] [employer] and an Endocrine Society practice guideline as a level of serum 25-OH vitamin D less than 20 ng/mL (1,2). The Endocrine Society went on to further define vitamin D insufficiency as a level between 21 and 29 ng/mL (2). 1. IOM ([place] [employer]). 2010. Dietary reference intakes for calcium and D. [place]: The National Academies Press. 2. Max MF, Mk HAYS, Nacho JASSO, et al. Evaluation, treatment, and prevention of vitamin D deficiency: an Endocrine Society clinical practice guideline. JCEM. 2010; 96(7):1911-30. Performed at: RN - [facility] [address] [id number] Security Controls Assessor: Karyn Marrero MD, Phone: [phone] 16 Reference Guidelines*: Desirable: ........... < 200 mg/dL Borderline High: ..... 200-239 mg/dL High: ................ >=240 mg/dL * The National Cholesterol Education Program (NCEP) 17 Reference Guidelines*: Normal: ............. < 150 mg/dL Borderline High: .... 150-199 mg/dL High: ............... 200-499 mg/dL Very High: .......... > 500 mg/dL * Source: National Cholesterol Education Program (NCEP) 18 Reference Guidelines*: Low HDL: ..... < 40 mg/dL Normal: ..... 40-60 mg/dL Desirable: ... > 60 mg/dL *The National Cholesterol Education Program(NCEP) 19 (LDL CANNOT BE CALCULATED FOR TRIGS >400 mg/dL) 20 Reference Guidelines*: Desirable: ........... < 200 mg/dL Borderline High: ..... 200-239 mg/dL High: ................ >=240 mg/dL * The National Cholesterol Education Program (NCEP) 21 Reference Guidelines*: Normal: ............. < 150 mg/dL Borderline High: .... 150-199 mg/dL High: ............... 200-499 mg/dL Very High: .......... > 500 mg/dL * Source: National Cholesterol Education Program (NCEP) 22 Reference Guidelines*: Low HDL: ..... < 40 mg/dL Normal: ..... 40-60 mg/dL Desirable: ... > 60 mg/dL *The National Cholesterol Education Program(NCEP) 23 Reference Guidelines*: Optimal:........... <100 mg/dL Near Optimal....... 100-129 mg/dL Borderline High.... 130-159 mg/dL High............... 160-189 mg/dL Very High.......... >=190 mg/dL * Source: National Cholesterol Education Program (NCEP) 24 Note: Persistent reduction for 3 months or more in an eGFR <60 mL/min/1.73 m2 defines CKD. Patients with eGFR values >/=60 mL/min/1.73 m2 may also have CKD if evidence of persistent proteinuria is present. The original MDRD equation for estimated GFR is not valid for patients less than 18 years of age. Additional information may be found at [email or web address]. 25 Elevated levels of HbA1c suggest the need for more aggressive treatment of glycemia. The [place] [employer] recommends that a primary goal of therapy should be a HbA1c of <7% and that physicians should re-evaluate the treatment regimen in patients with HbA1c values consistently >8%. 26 E11.42 27 Note: Persistent reduction for 3 months or more in an eGFR <60 mL/min/1.73 m2 defines CKD. Patients with eGFR values >/=60 mL/min/1.73 m2 may also have CKD if evidence of persistent proteinuria is present. The original MDRD equation for estimated GFR is not valid for patients less than 18 years of age. Additional information may be found at [email or web address]. 28 Elevated levels of HbA1c suggest the need for more aggressive treatment of glycemia. The [place] [employer] recommends that a primary goal of therapy should be a HbA1c of <7% and that physicians should re-evaluate the treatment regimen in patients with HbA1c values consistently >8%. 29 Reference Guidelines*: Desirable: ........... < 200 mg/dL Borderline High: ..... 200-239 mg/dL High: ................ >=240 mg/dL * The National Cholesterol Education Program (NCEP) 30 Reference Guidelines*: Normal: ............. < 150 mg/dL Borderline High: .... 150-199 mg/dL High: ............... 200-499 mg/dL Very High: .......... > 500 mg/dL * Source: National Cholesterol Education Program (NCEP) 31 Reference Guidelines*: Low HDL: ..... < 40 mg/dL Normal: ..... 40-60 mg/dL Desirable: ... > 60 mg/dL *The National Cholesterol Education Program(NCEP) 32 Reference Guidelines*: Optimal:........... <100 mg/dL Near Optimal....... 100-129 mg/dL Borderline High.... 130-159 mg/dL High............... 160-189 mg/dL Very High.......... >=190 mg/dL * Source: National Cholesterol Education Program (NCEP) 33 E11.9,E78.5 34 Reference Guidelines*: Desirable: ........... < 200 mg/dL Borderline High: ..... 200-239 mg/dL High: ................ >=240 mg/dL * The National Cholesterol Education Program (NCEP) 35 Reference Guidelines*: Normal: ............. < 150 mg/dL Borderline High: .... 150-199 mg/dL High: ............... 200-499 mg/dL Very High: .......... > 500 mg/dL * Source: National Cholesterol Education Program (NCEP) 36 Reference Guidelines*: Low HDL: ..... < 40 mg/dL Normal: ..... 40-60 mg/dL Desirable: ... > 60 mg/dL *The National Cholesterol Education Program(NCEP) 37 Reference Guidelines*: Optimal:........... <100 mg/dL Near Optimal....... 100-129 mg/dL Borderline High.... 130-159 mg/dL High............... 160-189 mg/dL Very High.......... >=190 mg/dL * Source: National Cholesterol Education Program (NCEP) 38 Elevated levels of HbA1c suggest the need for more aggressive treatment of glycemia. The [place] [employer] recommends that a primary goal of therapy should be a HbA1c of <7% and that physicians should re-evaluate the treatment regimen in patients with HbA1c values consistently >8%. 39 Note: Persistent reduction for 3 months or more in an eGFR <60 mL/min/1.73 m2 defines CKD. Patients with eGFR values >/=60 mL/min/1.73 m2 may also have CKD if evidence of persistent proteinuria is present. The original MDRD equation for estimated GFR is not valid for patients less than 18 years of age. Additional information may be found at [email or web address]. 40 30 [facility] [place] [id number] 41 Note: Persistent reduction for 3 months or more in an eGFR <60 mL/min/1.73 m2 defines CKD. Patients with eGFR values >/=60 mL/min/1.73 m2 may also have CKD if evidence of persistent proteinuria is present. The original MDRD equation for estimated GFR is not valid for patients less than 18 years of age. Additional information may be found at [email or web address]. 42 Is patient on heparin protocol? N Is patient on anticoagulants? Unknown 43 THERAPEUTIC INR RANGE: 2.0 - 3.0 DVT, Pulmonary embolus, prophylaxis against venous thrombosis or systemic embolization in high risk patients. 2.5 - 3.5 Mechanical heart valves 44 E11.42,E78.4 45 Note: Persistent reduction for 3 months or more in an eGFR <60 mL/min/1.73 m2 defines CKD. Patients with eGFR values >/=60 mL/min/1.73 m2 may also have CKD if evidence of persistent proteinuria is present. The original MDRD equation for estimated GFR is not valid for patients less than 18 years of age. Additional information may be found at [email or web address]. 46 Elevated levels of HbA1c suggest the need for more aggressive treatment of glycemia. The [place] [employer] recommends that a primary goal of therapy should be a HbA1c of <7% and that physicians should re-evaluate the treatment regimen in patients with HbA1c values consistently >8%. 47 Reference Guidelines*: Desirable: ........... < 200 mg/dL Borderline High: ..... 200-239 mg/dL High: ................ >=240 mg/dL * The National Cholesterol Education Program (NCEP) 48 Reference Guidelines*: Normal: ............. < 150 mg/dL Borderline High: .... 150-199 mg/dL High: ............... 200-499 mg/dL Very High: .......... > 500 mg/dL * Source: National Cholesterol Education Program (NCEP) 49 Reference Guidelines*: Low HDL: ..... < 40 mg/dL Normal: ..... 40-60 mg/dL Desirable: ... > 60 mg/dL *The National Cholesterol Education Program(NCEP) 50 Reference Guidelines*: Optimal:........... <100 mg/dL Near Optimal....... 100-129 mg/dL Borderline High.... 130-159 mg/dL High............... 160-189 mg/dL Very High.......... >=190 mg/dL * Source: National Cholesterol Education Program (NCEP) 51 K76.0 52 Reference Guidelines*: Normal: ............. < 150 mg/dL Borderline High: .... 150-199 mg/dL High: ............... 200-499 mg/dL Very High: .......... > 500 mg/dL * Source: National Cholesterol Education Program (NCEP) 53 INFCE Result Units: s/co ratio Negative: < 0.8 Indeterminate: 0.8 - 0.9 Positive: > 0.9 The CDC recommends that a positive HCV antibody result be followed up with a HCV Nucleic Acid Amplification test (665694). Performed at: [facility] [id number] Security Controls Assessor: Karyn Marrero MD, Phone: [phone] Performed at: [facility] [id number] Security Controls Assessor: Rigo Cabezas MD, Phone: [phone] Performed at: [facility] [id number] Security Controls Assessor: Karyn Marrero MD, Phone: [phone] 55 F1 - Portal fibrosis 56 S3 - Marked or Severe Steatosis 57 N1 - Borderline or probable RAMIREZ 58 Quantitative results of 10 biochemicals in combination with age, gender, height, and weight, are analyzed using a computational algorithm to provide a quantitative surrogate marker (0.0-1.0) of liver fibrosis (Metavir F0-F4), hepatic steatosis (0.0-1.0, S0-S3), and Non-Alcoholic Steato- Hepatitis (RAMIREZ) (0.0-0.75, N0-N2). The absence of steatosis (S<0.38) precludes the diagnosis of RAMIREZ. Fibrosis marker: In a study of 171 Non-Alcoholic Fatty Liver Disease (NAFLD) patients where 23% had significant NAFLD fibrosis (Metavir F2-F4) and 11% had cirrhosis by liver biopsy, a fibrosis result of >0.3 yielded a sensitivity of 83% and a specificity of 78% for the detection of significant fibrosis(1). Steatosis Marker: In a population of 744 patients (583 HCV, 18 HBV, 69 NAFLD, and 74 alcoholic disease patients), where 36% had significant steatosis (>5%) on a liver biopsy, a steatosis score >0.5 had a sensitivity of 71% and a specificity of 72% for identification of significant steatosis(2). RAMIREZ marker: In a population of 257 NAFLD patients, where 62% had at least some RAMIREZ by liver biopsy, a prediction of RAMIREZ had a sensitivity of 88% for identifying RAMIREZ and a specificity of 50%(3). 59 <0.21=Stage F0 - No fibrosis 0.21 - 0.27=Stage F0 - F1 0.27 - 0.31=Stage F1 - Portal fibrosis 0.31 - 0.48=Stage F1 - F2 0.48 - 0.58=Stage F2 - Bridging fibrosis with few septa 0.58 - 0.72=Stage F3 - Bridging fibrosis with many septa 0.72 - 0.74=Stage F3 - F4 >0.74=Stage F4 - Cirrhosis 60 < 0.30=S0 - No Steatosis 0.30 to 0.38=S0 - S1 0.38 to 0.48=S1 - Minimal Steatosis 0.48 to 0.57=S1 - S2 0.57 to 0.67=S2 - Moderate Steatosis 0.67 to 0.69=S2 - S3 > 0.69=S3 - Marked or Severe Steatosis 61 0.25=N0 - Not RAMIREZ 0.50=N1 - Borderline or probable RAMIREZ 0.75=N2 - RAMIREZ 62 RAMIREZ FibroSure is recommended for patients with suspected non-alcoholic fatty liver disease. It is not recommended for patients with other liver diseases. It is also not recommended in patients with Gilbert Disease, acute hemolysis, acute viral hepatitis, drug induced hepatitis, genetic liver disease, autoimmune hepatitis and/or extra- hepatic cholestasis. Any of these clinical situations may lead to inaccurate quantitative predictions of fibrosis. 63 This test was developed and its performance characteristics determined by [employer]. It has not been cleared or approved by the Food and Drug Administration. The FDA has determined that such clearance or approval is not necessary. For questions regarding this report please contact customer service at . References: 1. Humberto Gayle. et al. Diagnostic Value of Biochemical Markers (FibroTest) for the prediction of Liver Fibrosis in patients with Non-Alcoholic Fatty Liver Disease. BMC Gastroenterology 2006; 6:6. 2. Yordy Almonte. et al. The Diagnostic Value of Biomarkers (Steato Test) for the Prediction of Liver Steatosis. Comparative Hepatol. 2005; 4:10. 3. Yordy Almonte, Sheryl Paul, et al. Diagnostic value of biochemical markers (RAMIREZ TEST) for the prediction of non alcohol steato hepatitis in patients with non- alcoholic fatty liver disease. BMC Gastroenterology 2006; 6:34 doi:10.1186/1473-319I-[id number]. 64 Ramirez FibroSure is recommended for patients with suspected non-alcoholic fatty liver disease. It is not recommended for patients with other liver diseases. It is also not recommended in patients with Gilbert Disease, acute hemolysis, acute viral hepatitis, drug induced hepatitis, genetic liver disease, autoimmune hepatitis and/or extra- hepatic cholestasis. Any of these clinical situations may lead to inaccurate quantitative predictions of fibrosis. 65 Quantitative results of 10 biochemicals in combination with age, gender, height, and weight, are analyzed using a computational algorithm to provide a quantitative surrogate marker (0.0-1.0) of liver fibrosis (Metavir F0-F4), hepatic steatosis (0.0-1.0, S0-S3), and Non-Alcoholic Steato- Hepatitis (Ramirez ) (0.0-0.75, N0-N2). The absence of steatosis (S<0.38) precludes the diagnosis of Ramirez. Fibrosis marker: In a study of 171 Non-Alcoholic Fatty Liver Disease (Nafld) patients where 23% had significant Nafld fibrosis (Metavir F2-F4) and 11% had cirrhosis by liver biopsy, a fibrosis result of >0.3 yielded a sensitivity of 83% and a specificity of 78% for the detection of significant fibrosis(1). Steatosis Marker: In a population of 744 patients (583 HCV, 18 HBV, 69 Nafld , and 74 alcoholic disease patients), where 36% had significant steatosis (>5% ) on a liver biopsy, a steatosis score >0.5 had a sensitivity of 71% and a specificity of 72% for identification of significant steatosis(2). Ramirez marker: In a population of 257 Nafld patients, where 62% had at least some Ramirez by liver biopsy, a prediction of Ramirez had a sensitivity of 88% for identifying Ramirez and a specificity of 50%(3). 66 <0.21=Stage F0 - No fibrosis 0.21 - 0.27=Stage F0 - F1 0.27 - 0.31=Stage F1 - Portal fibrosis 0.31 - 0.48=Stage F1 - F2 0.48 - 0.58=Stage F2 - Bridging fibrosis with few septa 0.58 - 0.72=Stage F3 - Bridging fibrosis with many septa 0.72 - 0.74=Stage F3 - F4 >0.74=- Cirrhosis 67 < 0.30=S0 - No Steatosis 0.30 to 0.38=S0 - S1 0.38 to 0.48=S1 - Minimal Steatosis 0.48 to 0.57=S1 - S2 0.57 to 0.67=S2 - Moderate Steatosis 0.67 to 0.69=S2 - S3 > 0.69=S3 - Marked or Severe Steatosis 68 0.25=N0 - Not Ramirez 0.50=N1 - Borderline or probable Ramirez 0.75=N2 - Ramirez 69 E11.42 70 Valid ratio could not be calculated due to non-numeric result. 71 E11.42,E78.4 72 Note: Persistent reduction for 3 months or more in an eGFR <60 mL/min/1.73 m2 defines CKD. Patients with eGFR values >/=60 mL/min/1.73 m2 may also have CKD if evidence of persistent proteinuria is present. The original MDRD equation for estimated GFR is not valid for patients less than 18 years of age. Additional information may be found at [email or web address]. 73 Reference Guidelines*: Desirable: ........... < 200 mg/dL Borderline High: ..... 200-239 mg/dL High: ................ >=240 mg/dL * The National Cholesterol Education Program (NCEP) 74 Reference Guidelines*: Normal: ............. < 150 mg/dL Borderline High: .... 150-199 mg/dL High: ............... 200-499 mg/dL Very High: .......... > 500 mg/dL * Source: National Cholesterol Education Program (NCEP) 75 Reference Guidelines*: Low HDL: ..... < 40 mg/dL Normal: ..... 40-60 mg/dL Desirable: ... > 60 mg/dL *The National Cholesterol Education Program(NCEP) 76 Reference Guidelines*: Optimal:........... <100 mg/dL Near Optimal....... 100-129 mg/dL Borderline High.... 130-159 mg/dL High............... 160-189 mg/dL Very High.......... >=190 mg/dL * Source: National Cholesterol Education Program (NCEP) 77 Elevated levels of HbA1c suggest the need for more aggressive treatment of glycemia. The [place] [employer] recommends that a primary goal of therapy should be a HbA1c of <7% and that physicians should re-evaluate the treatment regimen in patients with HbA1c values consistently >8%. 78 E78.4,E11.42,I73.9,I25.10 79 Note: Persistent reduction for 3 months or more in an eGFR <60 mL/min/1.73 m2 defines CKD. Patients with eGFR values >/=60 mL/min/1.73 m2 may also have CKD if evidence of persistent proteinuria is present. The original MDRD equation for estimated GFR is not valid for patients less than 18 years of age. Additional information may be found at [email or web address]. 80 Reference Guidelines*: Desirable: ........... < 200 mg/dL Borderline High: ..... 200-239 mg/dL High: ................ >=240 mg/dL * The National Cholesterol Education Program (NCEP) 81 Reference Guidelines*: Normal: ............. < 150 mg/dL Borderline High: .... 150-199 mg/dL High: ............... 200-499 mg/dL Very High: .......... > 500 mg/dL * Source: National Cholesterol Education Program (NCEP) 82 Reference Guidelines*: Low HDL: ..... < 40 mg/dL Normal: ..... 40-60 mg/dL Desirable: ... > 60 mg/dL *The National Cholesterol Education Program(NCEP) 83 Reference Guidelines*: Optimal:........... <100 mg/dL Near Optimal....... 100-129 mg/dL Borderline High.... 130-159 mg/dL High............... 160-189 mg/dL Very High.......... >=190 mg/dL * Source: National Cholesterol Education Program (NCEP) 84 Elevated levels of HbA1c suggest the need for more aggressive treatment of glycemia. The [place] [employer] recommends that a primary goal of therapy should be a HbA1c of <7% and that physicians should re-evaluate the treatment regimen in patients with HbA1c values consistently >8%. 85 E78.4 86 Note: Persistent reduction for 3 months or more in an eGFR <60 mL/min/1.73 m2 defines CKD. Patients with eGFR values >/=60 mL/min/1.73 m2 may also have CKD if evidence of persistent proteinuria is present. The original MDRD equation for estimated GFR is not valid for patients less than 18 years of age. Additional information may be found at [email or web address]. 87 Elevated levels of HbA1c suggest the need for more aggressive treatment of glycemia. The [place] [employer] recommends that a primary goal of therapy should be a HbA1c of <7% and that physicians should re-evaluate the treatment regimen in patients with HbA1c values consistently >8%. 88 Reference Guidelines*: Desirable: ........... < 200 mg/dL Borderline High: ..... 200-239 mg/dL High: ................ >=240 mg/dL * The National Cholesterol Education Program (NCEP) 89 Reference Guidelines*: Normal: ............. < 150 mg/dL Borderline High: .... 150-199 mg/dL High: ............... 200-499 mg/dL Very High: .......... > 500 mg/dL * Source: National Cholesterol Education Program (NCEP) 90 Reference Guidelines*: Low HDL: ..... < 40 mg/dL Normal: ..... 40-60 mg/dL Desirable: ... > 60 mg/dL *The National Cholesterol Education Program(NCEP) 91 Reference Guidelines*: Optimal:........... <100 mg/dL Near Optimal....... 100-129 mg/dL Borderline High.... 130-159 mg/dL High............... 160-189 mg/dL Very High.......... >=190 mg/dL * Source: National Cholesterol Education Program (NCEP) 92 Note: Persistent reduction for 3 months or more in an eGFR <60 mL/min/1.73 m2 defines CKD. Patients with eGFR values >/=60 mL/min/1.73 m2 may also have CKD if evidence of persistent proteinuria is present. The original MDRD equation for estimated GFR is not valid for patients less than 18 years of age. Additional information may be found at [email or web address]. 93 Note: Persistent reduction for 3 months or more in an eGFR <60 mL/min/1.73 m2 defines CKD. Patients with eGFR values >/=60 mL/min/1.73 m2 may also have CKD if evidence of persistent proteinuria is present. The original MDRD equation for estimated GFR is not valid for patients less than 18 years of age. Additional information may be found at [email or web address]. 94 Reference Guidelines*: Desirable: ........... < 200 mg/dL Borderline High: ..... 200-239 mg/dL High: ................ >=240 mg/dL * The National Cholesterol Education Program (NCEP) 95 Reference Guidelines*: Normal: ............. < 150 mg/dL Borderline High: .... 150-199 mg/dL High: ............... 200-499 mg/dL Very High: .......... > 500 mg/dL * Source: National Cholesterol Education Program (NCEP) 96 Reference Guidelines*: Low HDL: ..... < 40 mg/dL Normal: ..... 40-60 mg/dL Desirable: ... > 60 mg/dL *The National Cholesterol Education Program(NCEP) 97 Reference Guidelines*: Optimal:........... <100 mg/dL Near Optimal....... 100-129 mg/dL Borderline High.... 130-159 mg/dL High............... 160-189 mg/dL Very High.......... >=190 mg/dL * Source: National Cholesterol Education Program (NCEP) 98 Note: Persistent reduction for 3 months or more in an eGFR <60 mL/min/1.73 m2 defines CKD. Patients with eGFR values >/=60 mL/min/1.73 m2 may also have CKD if evidence of persistent proteinuria is present. The original MDRD equation for estimated GFR is not valid for patients less than 18 years of age. Additional information may be found at [email or web address]. 99 07/31/14 LAB.SOTO @ [facility] SHARE ALL RESULTES 100 Elevated levels of HbA1c suggest the need for more aggressive treatment of glycemia. The [place] [employer] recommends that a primary goal of therapy should be a HbA1c of <7% and that physicians should re-evaluate the treatment regimen in patients with HbA1c values consistently >8%. 101 Test not performed (LDL CANNOT BE CALCULATED FOR TRIGS >400 mg/dL) 102 Note: Persistent reduction for 3 months or more in an eGFR <60 mL/min/1.73 m2 defines CKD. Patients with eGFR values >/=60 mL/min/1.73 m2 may also have CKD if evidence of persistent proteinuria is present. The original MDRD equation for estimated GFR is not valid for patients less than 18 years of age. Additional information may be found at [email or web address]. 103 A1c value between 5.7% and 6.4% is considered at increased risk for diabetes. A1c value greater than 6.5 % is considered essentially diagnostic for Type II diabetes. Current guidelines recommend a treatment goal of <7% for diabetic patients. This method will measure glycosylated hemoglobin variants, HbS, HbG, HbH, HbWayne, HbC, HbE, etc. Other hemoglobin- opathies may give incorrect results with this test. 104 THIS ASSAY IS NOT INTENDED A CANCER SCREENING TEST The concentration of PSA in a given specimen, determined with assays from different manufacturers, can vary due to differences in assay methods and reagent specificity. Values obtained from different assay methods cannot be used interchangeably. 105 Test not performed (LDL CANNOT BE CALCULATED FOR TRIGS >400 mg/dL) 106 Note: Persistent reduction for 3 months or more in an eGFR <60 mL/min/1.73 m2 defines CKD. Patients with eGFR values >/=60 mL/min/1.73 m2 may also have CKD if evidence of persistent proteinuria is present. The original MDRD equation for estimated GFR is not valid for patients less than 18 years of age. Additional information may be found at [email or web address]. 107 THIS ASSAY IS NOT INTENDED A CANCER SCREENING TEST The concentration of PSA in a given specimen, determined with assays from different manufacturers, can vary due to differences in assay methods and reagent specificity. Values obtained from different assay methods cannot be used interchangeably. 108 THIS ASSAY IS NOT INTENDED A CANCER SCREENING TEST The concentration of PSA in a given specimen, determined with assays from different manufacturers, can vary due to differences in assay methods and reagent specificity. Values obtained from different assay methods cannot be used interchangeably. Procedures Date Code Description Status 10/12/2018 [id number] Diabetic Foot Exam Completed 10/11/2018 61412 Debridement Nails Any Method 6 Or More Completed 08/06/2018 69018 Echocardiogram Complete Completed 11/05/2017 66296 Laparoscopy Surgical Repair Incisional Hernia Completed 10/15/2017 91327 Colonoscopy With Biopsy Completed 10/15/2017 17454 EGD With Biopsy Completed 10/09/2017 57925 Eye Exam New Patient Comprehensive Completed 09/21/2017 [id number] Colonoscopy Completed 08/20/2017 40763 EKG-Tracing And Report Completed 03/30/2017 30410 Bronchospasm Provocation Evaluation Multi Spirometric Completed Determinati 03/30/2017 47840 Spirometry Completed 01/13/2017 84597 Stress Test Interpre And Report Only Completed 01/13/2017 11416 Stress Test Physician Super Only Completed 01/13/2017 12634 Myocardial Imaging Tomographic Multiple Study AT Rest Completed Or Stress 01/09/2017 81256 EKG-Tracing And Report Completed 10/01/2016 48083 EKG-Tracing And Report Completed 04/14/2016 79954 Nerve Conduction 5-6 Studies Completed 04/14/2016 47217 Needle Electromyography Complete, Five Or More Muscles Completed Studied 11/22/2015 30147 EKG-Tracing And Report Completed 07/04/2015 97387 Bronchospasm Provocation Evaluation Multi Spirometric Completed Determinati 07/04/2015 03285 Bronchodilation Responsiveness Spirometry Pre/Post Completed Bronchodil Adm 07/04/2015 56620 Spirometry Completed 11/13/2014 89760 Myocardial Imaging Tomographic Multiple Study AT Rest Completed Or Stress 11/13/2014 30455 Stress Test Physician Super Only Completed 11/13/2014 76414 Stress Test Physician Super Only Completed 11/13/2014 55848 Stress Test Interpre And Report Only Completed 05/02/2014 47245 EKG-Tracing And Report Completed 10/04/2013 64906 Echocardiogram Complete Completed 03/13/2011 13860 EKG-Tracing And Report Completed 03/13/2011 81013 EKG-Tracing And Report Completed 03/12/2010 52487 EKG-Tracing And Report Completed 01/19/2009 37289 Echocardiogram Complete Completed 01/19/2009 96975 Stress Test Interpre And Report Only Completed 01/19/2009 38070 Stress Test Physician Super Only Completed 01/19/2009 55552 Ejection Fraction Completed 01/19/2009 82143 Myocardial Wall Motion Completed 01/19/2009 61298 Cardiolite Stress/Rest Spect Completed 01/17/2009 92926 EKG-Tracing And Report Completed Encounters Type Date Location Provider Dx Diagnosis Office Visit 01/18/2019 Primary Care Lana, K76.0 Fatty (change of) 3:00p Office Kaykay, , liver, not MACHINE II CUTTER-C, CNM elsewhere classified R94.5 Abnormal results of liver function studies E11.9 Type 2 diabetes mellitus without complications E55.9 Vitamin D deficiency, unspecified F17.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, cigarettes, in remission I10 Essential (primary) hypertension Office Visit 01/13/2019 4:30p Paulina Haas MD K76.0 Fatty (change of) liver, not elsewhere classified R94.5 Abnormal results of liver function studies Office Visit 12/14/2018 3:30p Primary Care Lana, E11.9 Type 2 diabetes Office Kaykay, , mellitus without MACHINE II CUTTER-C, CNM complications E55.9 Vitamin D deficiency, unspecified H68.002 Unspecified Eustachian salpingitis, left ear F17.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, cigarettes, in remission Office Visit 12/08/2018 2:45p Pulmonology Cresencio Hair MD Z12.2 Encntr screen for malignant neoplasm of respiratory organs J44.9 Chronic obstructive pulmonary disease, unspecified Z12.2 Encntr screen for malignant neoplasm of respiratory organs F17.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, cigarettes, in remission Office Visit 11/30/2018 3:30p Primary Care Lana, E11.9 Type 2 diabetes Office MS Kaykay, mellitus without MACHINE II CUTTER-C, CNM complications R94.5 Abnormal results of liver function studies R06.2 Wheezing J06.9 Acute upper respiratory infection, unspecified I10 Essential (primary) hypertension E55.9 Vitamin D deficiency, unspecified R06.02 Shortness of breath R05 Cough Office Visit 11/03/2018 3:30p Primary Care Lana, E11.9 Type 2 diabetes Office Kaykay, , mellitus without MACHINE II CUTTER-C, CNM complications B35.3 Tinea pedis R94.5 Abnormal results of liver function studies I10 Essential (primary) hypertension E55.9 Vitamin D deficiency, unspecified E78.5 Hyperlipidemia, unspecified Office Visit 10/20/2018 3:30p Primary Care Lana, E11.9 Type 2 diabetes Office Kaykay MS, mellitus without MACHINE II CUTTER-C, CNM complications B35.3 Tinea pedis I35.1 Nonrheumatic aortic (valve) insufficiency I25.10 Athscl heart disease of [place] coronary artery w/o ang pctrs I10 Essential (primary) hypertension I73.9 Peripheral vascular disease, unspecified E78.5 Hyperlipidemia, unspecified K21.0 Gastro-esophageal reflux disease with esophagitis R94.5 Abnormal results of liver function studies Office Visit 10/11/2018 1:00p Podiatry Office Edgar Morgan, E11.9 Type 2 diabetes DPM mellitus without complications B35.3 Tinea pedis Office Visit 08/23/2018 Cardiology Nola Miller I35.1 Nonrheumatic aortic 3:00p Office BRI Jeronimo, (valve) MACHINE II CUTTER insufficiency I25.10 Athscl heart disease of [place] coronary artery w/o ang pctrs I10 Essential (primary) hypertension I34.0 Nonrheumatic mitral (valve) insufficiency I73.9 Peripheral vascular disease, unspecified Office Visit 07/20/2018 3:00p Primary Care Kaykay Schwartz, J44.9 Chronic Office MS, MACHINE II CUTTER-C, CNM obstructive pulmonary disease, unspecified E11.42 Type 2 diabetes mellitus with diabetic polyneuropathy E78.5 Hyperlipidemia, unspecified I10 Essential (primary) hypertension Z23 Encounter for immunization Z71.3 Dietary counseling and surveillance Office Visit 07/01/2018 3:30p GI Quirino José MD K64.0 First degree hemorrhoids K21.0 Gastro-esophageal reflux disease with esophagitis Office Visit 06/03/2018 3:45p Pulmonology Cresencio Hair MD J44.9 Chronic obstructive pulmonary disease, unspecified R91.1 Solitary pulmonary nodule F17.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, cigarettes, in remission Office Visit 04/19/2018 3:40p Primary Care Katelin Dickey, E78.5 Hyperlipidemia, Office MD unspecified I10 Essential (primary) hypertension I73.9 Peripheral vascular disease, unspecified E11.42 Type 2 diabetes mellitus with diabetic polyneuropathy M54.5 Low back pain Z71.3 Dietary counseling and surveillance Z71.89 Other specified counseling Office Visit 04/12/2018 3:30p Primary Care Lana M54.5 Low back pain Office MS Kaykay, MACHINE II CUTTER-C, CNM Office Visit 04/02/2018 2:30p Primary Care Lana M54.5 Low back pain Office MS Kaykay, MACHINE II CUTTER-C, CNM Office Visit 02/17/2018 2:20p Cardiology Office Nola Miller I25.10 [facility] BRI Jeronimo, disease of MACHINE II CUTTER [place] coronary artery w/o ang pctrs E78.4 Other hyperlipidemia I73.9 Peripheral vascular disease, unspecified I10 Essential (primary) hypertension I34.0 Nonrheumatic mitral (valve) insufficiency I35.1 Nonrheumatic aortic (valve) insufficiency Office Visit 01/15/2018 2:00p Primary Care Katelin Dickey, I10 Essential ( primary) Office MD hypertension E78.5 Hyperlipidemia, unspecified E11.42 Type 2 diabetes mellitus with diabetic polyneuropathy Z48.815 Encntr for surgical aftcr following surgery on the dgstv sys Office Visit 12/30/2017 10:30a SIMONE Del Valle MD K21.0 Gastro-esophageal reflux disease with esophagitis K64.0 First degree hemorrhoids Z86.010 Personal history of colonic polyps Office Visit 10/22/2017 3:30p Primary Care Katherin, R10.9 Unspecified Office Elo King abdominal pain Office Visit 10/16/2017 9:20a Primary Care Katelin Dickey MD K43.2 Incisional hernia Office without obstruction or gangrene I10 Essential (primary) hypertension E78.5 Hyperlipidemia, unspecified E11.42 Type 2 diabetes mellitus with diabetic polyneuropathy N52.9 Male erectile dysfunction, unspecified Office Visit 10/14/2017 11:00a Surgical Office Walter Goode3.2 Incisional hernia Kar, without SHERRY MORRISON obstruction or gangrene Office Visit 10/05/2017 9:00a Surgical Office Walter Goode3.2 Incisional hernia Kar, without SHERRY MORRISON obstruction or gangrene Office Visit 09/30/2017 8:45a SIMONE Del Valle MD R12 Heartburn Z12.11 Encounter for screening for malignant neoplasm of colon K62.5 Hemorrhage of anus and rectum K76.0 Fatty (change of) liver, not elsewhere classified Office Visit 09/11/2017 1:00p Primary Care Katelin Dickey, I10 Essential ( primary) Office hypertension K42.9 Umbilical hernia without obstruction or gangrene Office Visit 08/20/2017 3:00p Pulmonology Cresencio Hair MD J44.9 Chronic obstructive pulmonary disease, unspecified R04.0 Epistaxis F17.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, cigarettes, in remission K42.9 Umbilical hernia without obstruction or gangrene Office Visit 08/20/2017 Cardiology Nay, Z01.810 Encounter for 4:00p Office Garcia Olivier M.D., preprocedural FACC cardiovascular examination I10 Essential (primary) hypertension I25.10 Athscl heart disease of [place] coronary artery w/o ang pctrs E78.5 Hyperlipidemia, unspecified I73.9 Peripheral vascular disease, unspecified Office Visit 06/19/2017 9:45a Primary Care Katelin Dickey, I10 Essential ( primary) Office hypertension Office Visit 06/15/2017 9:20a Primary Care Katelin Dickey, E11.42 Type 2 diabetes Office mellitus with diabetic polyneuropathy E78.4 Other hyperlipidemia I25.10 Athscl heart disease of [place] coronary artery w/o ang pctrs I10 Essential (primary) hypertension M51.16 Intervertebral disc disorders w radiculopathy, lumbar region Z23 Encounter for immunization Office Visit 03/17/2017 9:40a Primary Care Katelin Dickey, E11.42 Type 2 diabetes Office mellitus with diabetic polyneuropathy 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 E78.4 Other hyperlipidemia I73.9 Peripheral vascular disease, unspecified Office Visit 01/09/2017 Cardiology Nay, Z01.810 Encounter for 1:40p Office Garcia Oilvier M.D., preprocedural FACC cardiovascular examination I73.9 Peripheral vascular disease, unspecified E78.4 Other hyperlipidemia I25.10 Athscl heart disease of [place] coronary artery w/o ang pctrs Office Visit 12/24/2016 1:30p Pulmonology Cresencio Hair MD J44.9 Chronic obstructive pulmonary disease, unspecified F17.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, cigarettes, in remission Z01.811 Encounter for preprocedural respiratory examination Office Visit 11/12/2016 8:40a Primary Care Katelin Dickey, E11.42 Type 2 diabetes Office MD mellitus with diabetic polyneuropathy I73.9 Peripheral vascular disease, unspecified E78.4 Other hyperlipidemia I10 Essential (primary) hypertension I25.10 Athscl heart disease of [place] coronary artery w/o ang pctrs B35.3 Tinea pedis Office Visit 10/01/2016 Cardiology Nola Miller Z01.810 Encounter for 3:00p Office BRI Jeronimo, preprocedural MACHINE II CUTTER cardiovascular examination I25.10 Athscl heart disease of [place] coronary artery w/o ang pctrs I73.9 Peripheral vascular disease, unspecified E78.4 Other hyperlipidemia I10 Essential (primary) hypertension E11.42 Type 2 diabetes mellitus with diabetic polyneuropathy J44.9 Chronic obstructive pulmonary disease, unspecified Office Visit 07/08/2016 10:00a Primary Care Gregorio Ortega I25.10 Athscl heart Office E., DO disease of [place] coronary artery w/o ang pctrs E78.4 Other hyperlipidemia E11.42 Type 2 diabetes mellitus with diabetic polyneuropathy I10 Essential (primary) hypertension K21.9 Gastro-esophageal reflux disease without esophagitis J44.9 Chronic obstructive pulmonary disease, unspecified Z23 Encounter for immunization Office Visit 06/25/2016 1:30p Pulmonology Cresencio Hair MD J44.9 Chronic obstructive pulmonary disease, unspecified F17.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, cigarettes, in remission R91.1 Solitary pulmonary nodule Office Visit 05/28/2016 Cardiology Nola Miller M51.16 Intervertebral disc 3:20p Office BRI Jeronimo, disorders w MACHINE II CUTTER radiculopathy, lumbar region I73.9 Peripheral vascular disease, unspecified I25.10 Athscl heart disease of [place] coronary artery w/o ang pctrs E78.4 Other hyperlipidemia I10 Essential (primary) hypertension Office Visit 12/25/2015 1:30p Pulmonology Cresencio Hair, J43.2 Centrilobular MD emphysema F17.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, cigarettes, in remission Office Visit 11/22/2015 3:20p Cardiology Gacria Tee I73.9 Peripheral Office Elo Olivier, FACC vascular disease, unspecified I25.10 Athscl heart disease of [place] coronary artery w/o ang pctrs E78.4 Other hyperlipidemia Office Visit 06/25/2015 2:00p Pulmonology Cresencio Hair, R06.02 Shortness of MD breath Office Visit 05/23/2015 1:00p Cardiology Office Nola Miller 786.05 Shortness Of Phani, Breath MSN, MACHINE II CUTTER 414.01 Coronary Atherosclerosis Kaw 443.9 Peripheral Vascular Disease Unspec 401.1 Hypertension Benign 272.4 Hyperlipidemia Other Unspec Office Visit 11/09/2014 1:00p Cardiology Office Nola Miller 786.05 Shortness Of BRI Jeronimo, Breath MACHINE II CUTTER 414.01 Coronary Atherosclerosis Kaw 443.9 Peripheral Vascular Disease Unspec 401.1 Hypertension Benign 272.4 Hyperlipidemia Other Unspec Office Visit 05/02/2014 Cardiology Nay 414.01 Coronary 11:40a Office Garcia Olivier M.D., Atherosclerosis FACC [place] 443.9 Peripheral Vascular Disease Unspec 401.1 Hypertension Benign 302.72 Psychosexual Dysfunction W/ Inhibited Sexual Excitement Office Visit 10/11/2013 2:00p Cardiology Office Garcia Tee 424.0 Mitral Valve Elo Olivier, FACC Disorder 272.4 Hyperlipidemia Other Unspec 414.01 Coronary Atherosclerosis Kaw 443.9 Peripheral Vascular Disease Unspec Office Visit 04/06/2013 Cardiology Nola Miller 272.4 Hyperlipidemia 1:40p Office BRI Jeronimo, Other Unspec MACHINE II CUTTER 414.01 Coronary Atherosclerosis Kaw 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 443.9 Peripheral Vascular Disease Unspec 401.1 Hypertension Benign 424.0 Mitral Valve Disorder 790.21 Impaired Fasting Glucose Office Visit 10/06/2012 Cardiology Garcia Tee 272.4 Hyperlipidemia 2:40p Office Elo Olivier, FACC Other Unspec 414.01 Coronary Atherosclerosis Kaw 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 443.9 Peripheral Vascular Disease Unspec Office Visit 03/02/2012 Cardiology Nola Miller 414.01 Coronary 3:30p Office BRI Jeronimo, Atherosclerosis MACHINE II CUTTER [place] 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 443.9 Peripheral Vascular Disease Unspec 272.4 Hyperlipidemia Other Unspec 401.1 Hypertension Benign 790.29 Other Abnormal Glucose Office Visit 09/01/2011 Cardiology Nay, 414.01 Coronary 3:10p Office Garcia Olivier M.D., Atherosclerosis FACC [place] 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 443.9 Peripheral Vascular Disease Unspec 272.4 Hyperlipidemia Other Unspec 401.1 Hypertension Benign 441.9 Aneurysm Aortic W/O Rupture Unspec Site Office Visit 03/13/2011 Cardiology Nola Miller 414.01 Coronary 2:00p Office Phani, MSN, Atherosclerosis MACHINE II CUTTER [place] 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 443.9 Peripheral Vascular Disease Unspec 272.4 Hyperlipidemia Other Unspec 401.1 Hypertension Benign 441.9 Aneurysm Aortic W/O Rupture Unspec Site 790.29 Other Abnormal Glucose Office Visit 09/11/2010 Cardiology Nay 414.01 Coronary 2:10p Office Garcia Olivier M.D., Atherosclerosis FACC [place] 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 272.4 Hyperlipidemia Other Unspec 401.1 Hypertension Benign Office Visit 03/12/2010 Cardiology Nay 414.01 Coronary 12:40p Office Garcia Olivier M.D., Atherosclerosis FACC [place] 443.9 Peripheral Vascular Disease Unspec 401.1 Hypertension Benign 272.4 Hyperlipidemia Other Unspec 786.05 Shortness Of Breath 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 Office Visit 03/12/2009 Cardiology Nay 414.01 Coronary 2:00p Office Garcia Olivier M.D., Atherosclerosis FACC Kaw 441.9 Aneurysm Aortic W/O Rupture Unspec Site Office Visit 01/26/2009 2:00p Cardiology Office Garcia Tee 786.05 Liuness Of Elo Olivier, FACC Breath 443.9 Peripheral Vascular Disease Unspec 401.1 Hypertension Benign 794.30 Cardiovascular Function Study Unspec Abnormal Office Visit 01/17/2009 Cardiology Garcia Tee 401.1 Hypertension 9:00a Office Elo Olivier, FACC Benign 786.05 Shortness Of Breath 272.4 Hyperlipidemia Other Unspec V72.81 Examination Preoperative Cardiovascular Plan of Treatment Future Appointment(s):02/15/2019 3:00 pm - Quirino Flores MD at Uzcxyablxzkpt27/ 31/2019 3:30 pm - Kaykay Schwartz MS, MACHINE II CUTTER-C, CNM at Primary Care [id number] 4:05 pm - Edgar Morgan DPM at Podiatry [id number]/15/2019 3:45 pm - Cresencio Hair MD at Imorndwagzp43/05/2019 3:20 pm - Nola Miller, MSN , MACHINE II CUTTER at Cardiology Office
--- OUTSIDE RECORDS SUMMARY | 2019-01-29 07:29 | XMS REPORT | Continuity of Care Document ---
:1960 External Reference #:[id number] Author Name Paulina Green MD Address [address], [address] [place] [address] Care Team Providers Name Role Phone Kaykay Schwartz, MEAT COUNTER CLERK, CNM Care Team Information Decorator Mannequin Unavailable Katelin Dickey MD Primary Care Physician Unavailable Payers Date Identification Numbers Payment Provider Subscriber Policy Number: [id number] [facility] Remington Gomez PayID: [id number] [address] [address] [place] [address] Expires: 2018 Policy Number: [id number] [employer] Remington Gomez PayID: [id number] [address] [place] [address] Advance Directives Description No Information Available Problems Active Problems Provider Date Coronary arteriosclerosis Nola Miller, BRI, Onset: 03/02/2012 ENTERPRISE ACCOUNT EXECUTIVE Carotid artery occlusion Nola Miller, BRI, Onset: 03/02/2012 ENTERPRISE ACCOUNT EXECUTIVE Peripheral vascular disease Nola Miller, MSN, Onset: 03/02/2012 ENTERPRISE ACCOUNT EXECUTIVE Hyperlipidemia Nola Miller, MSN, Onset: 03/02/2012 ENTERPRISE ACCOUNT EXECUTIVE Benign essential hypertension Nola Miller, BRI, Onset: 03/02/2012 ENTERPRISE ACCOUNT EXECUTIVE Mitral valve disorder Garcia Tee M.D., Onset: 10/11/2013 FACC Psychosexual dysfunction associated Garcia Tee M.D., 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 FACC Essential hypertension Nola Miller, BRI, Onset: 05/28/2016 ENTERPRISE ACCOUNT EXECUTIVE Preoperative cardiovascular Garcia Tee M.D., Onset: 01/09/2017 examination FACC Heartburn Johnathon Del Valle MD Onset: 09/30/2017 Screening for malignant neoplasm of Johnathon Del Valle MD Onset: 09/30/2017 colon Hemorrhage of rectum and anus Johnathon Del Valle MD Onset: 09/30/2017 Chronic nonalcoholic [...] Diet Patient follows no dietary restrictions 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 Smoking Status Reviewed: 01/13/19 Quit smoked 1.5 ppd for 30 yrs. [...] mouth twice a MD Tablets day Ipratropium Wood use 2 sprays in 15ml J06.9 Keli, Katelin, 11/30/2018 0.06% each nostril MD Solution twice a day Benzonatate take one capsule 30caps R05 Keli, Katelin, 11/30/2018 200mg every 8 hours as MD Capsules needed Ergocalciferol take one a week 16caps E55.9 Gagen, 11/03/2018 [id number] Kaykay, MS, Capsules ENTERPRISE ACCOUNT EXECUTIVE-C, CNM Clopidogrel Bisulfate Take 1 Tablet By 30tabs Nay, 10/28/2018 Mouth Once Daily Garcia Olivier M.D., 75mg Tablets [facility] Proair Respiclick Take one or two 1units Gagen, 07/21/2018 puffs every 4-6 Kaykay, MS, 108(90Base) mcg/Act hours as needed ENTERPRISE ACCOUNT EXECUTIVE-C, CNM Aerosol for SOB Lancets Ultra Thin 30G Check BS 3- 4 100units E11.9 Gagen, 07/20/2018 times a day Type Kaykay, MS, Thin 30G Misc 2 diabetes ENTERPRISE ACCOUNT EXECUTIVE-C, CNM Freestyle Test fasting fs tid & 250units E11.42 Keli, Katelin, 04/20/2018 Strips prn MD Freestyle Test Fasting 250units E11.42 Keli, Katelin, 04/20/2018 Sugar Three MD Times A Day And as Needed Lancets Ultra Thin 30G use once daily 100units Keli, Katelin, 04/19/2018 and as needed MD Thin 30G [facility] for blood sugar testing Fenofibrate Take 1 Tablet By 90tabs E78.4 Julio Césarenlaureen, 02/19/2018 160mg Tablets Mouth Once Daily Garcia Olivier M.D., [facility] Glimepiride Take 3 Tablets 270tabs Keli, Katelin, [...] po qd 90tabs Nola Miller 81mg Tablets BRI Jeronimo, ENTERPRISE ACCOUNT EXECUTIVE Atenolol Take One Tablet 90tabs Nay, 50mg [...] Kaykay, 01/05/2019 Pen-Inject then after one MS, ENTERPRISE ACCOUNT EXECUTIVE-C, CNM week increase to 1.2mg once daily Terbinafine HCL 1 by mouth every 21tabs B35.3 Eddie, 10/11/2018 - 250mg day for 3 weeks ARLENE Hernández 10/22/2018 Tablets Cyclobenzaprine HCL 1 tab by mouth 30tabs Katelin Dickey, 04/19/2018 - 10mg at night Unknown Tablets Onetouch Ultra Blue use to test 100units Katelin Dickey, 04/19/2018 - blood sugar 04/20/2018 Strips fasting and as needed three times a day Arnicare apply to 75g M54.5 Gagen, 04/02/2018 - Gel affected area Kaykay, Unknown four times a day MS, ENTERPRISE ACCOUNT EXECUTIVE-C, CNM pain, swelling, bruising Cyclobenzaprine HCL Take one tablet 30tabs M54.5 Gagen, 04/02/2018 - 10mg every 8 hours Kaykay, 04/12/2018 Tablets prn low back MS, ENTERPRISE ACCOUNT EXECUTIVE-C, CNM pain Golytely drink half the 4000ml Z12.Luis Antonio Del Valle MD 09/30/2017 - 236gm Solution evening before 10/05/2017 Rec and half the morning of the procedure (1 cup every 10') Dulcolax 4 tablets taken 4tabs Boubacar12Ras Del Valle MD 09/30/2017 - 5mg Tablets DR kody 8pm the day 10/05/2017 before the procedure Magnesium Citrate 1 bottle po x 296ml Z12.Luis Antonio Del Valle MD 09/30/2017 - one as directed 10/05/2017 1.745GM/30ML Solution Lisinopril-Hydrochloro 1 by mouth every 90tabs I10 Nay, 08/20/2017 - thiazide day Garcia Olivier, 09/11/2017 20-25mg Tablets M.D., FACC E11.9 Glimepiride 2 tab by mouth 90tabs Krishan Dickeya, 06/15/2017 - 2mg every day 02/04/2018 Tablets Janumet Take 1 Tablet By 90tabs Krishan Dickeya, 06/15/2017 - 50-1000mg Mouth Once Daily MD 12/07/2018 Tablets Janumet 1 tab by mouth 90tabs Krishan Dickeya, 11/30/2016 - 50-1000mg every day 06/15/2017 Tablets [...] TBPK as on package BRI Jeronimo, Unknown ENTERPRISE ACCOUNT EXECUTIVE Ventolin HFA take 1-2 puffs QS J43.2 [...] - 10mg Tablets By Mouth Every M., MDwightDDwight, [facility] 12/21/2012 Day Glimepiride 1 po qd 180tabs Unknown - 4mg 06/15/2017 Tablets Fenofibrate take one tablet 90tabs E78.4 Garcia Tee - 145mg by mouth every M., M.D., [facility] 02/19/2018 Tablets day Tums chew and swallow Unknown - 500mg Chewtabs 1 tablet by 01/15/2018 mouth 3 times per day prn Hydrocodone-Acetamin as needed Unknown - ophen 12/07/2017 5-325mg Tablets Immunizations CPT Code Status Date Vaccine Reaction Lot # [id number] Given 07/20/2018 Influenza Virus Vaccine, Quadrivalent, 36 none [id number] Mos+, .5ML 02840 Given 06/15/2017 Influenza Virus Vaccine Quadrivalent Iiv4 [id number] [address] Given 07/08/2016 Influenza Virus Vaccine Split Virus Use [id number] For Individual 3Yr Older [id number] Given 07/04/2015 Influenza Vaccine (Fluzone) Age 3 And Older [id number] Given 08/04/2013 Pneumovax Injection Vital Signs Date Vital Result Comment 01/13/2019 4:30pm BP Systolic Sitting Left Arm 139 mmHg BP Diastolic Sitting Left Arm 66 mmHg Heart Rate 68 /min Respiratory Rate 14 /min Height 69 inches 5'9" Weight 216.38 lb BMI (Body Mass Index) 31.9 kg/m2 BSA (Body Surface Area) 2.14 m2 [place] body weight in kilograms 73 kg O2 % BldC Oximetry 94 % 12/14/2018 3:22pm BP Systolic Sitting Left Arm 132 mmHg BP Diastolic Sitting Left Arm 68 mmHg Body Temperature 98.0 F Heart Rate 75 /min reg Respiratory Rate 24 /min Height 69 inches 5'9" Weight 219.00 lb BMI (Body Mass Index) 32.3 kg/m2 BSA (Body Surface Area) 2.15 m2 [place] body weight in kilograms 73 kg O2 % BldC Oximetry 95 % ra 12/08/2018 2:55pm BP Systolic Sitting Left Arm 136 mmHg BP Diastolic Sitting Left Arm 51 mmHg Heart Rate 72 /min Respiratory Rate 16 /min Height 69 inches 5'9" Weight 218.00 lb BMI (Body Mass Index) 32.2 kg/m2 BSA (Body Surface Area) 2.14 m2 [place] body weight in kilograms 73 kg O2 [...] kg/m2 BSA (Body Surface Area) 2.15 m2 [place] body weight in kilograms 73 kg O2 % BldC Oximetry 96 % ra 11/03/2018 3:15pm BP Systolic Sitting Right Arm 144 mmHg BP Diastolic Sitting Right Arm 82 mmHg Body Temperature 99.0 F Heart Rate 65 /min Respiratory Rate 18 /min Height 69 inches 5'9" Weight 221.00 lb BMI (Body Mass Index) 32.6 kg/m2 BSA (Body Surface Area) 2.16 m2 [place] body weight in kilograms 73 kg O2 % BldC Oximetry 96 % ra 10/20/2018 3:22pm BP Systolic Sitting Right Arm 126 mmHg BP Diastolic Sitting Right Arm 78 mmHg Body Temperature 99.8 F Heart Rate 64 /min Respiratory Rate 24 /min Height 69 inches 5'9" Weight 221.00 lb BMI (Body Mass Index) 32.6 kg/m2 BSA (Body Surface Area) 2.16 m2 [place] body weight in kilograms 73 kg O2 % BldC Oximetry 96 % 10/11/2018 1:02pm BP Systolic 194 mmHg BP Diastolic 72 mmHg Body Temperature 98.8 F Heart Rate 60 /min Respiratory Rate 18 /min Height 69 inches 5'9" Weight 220.00 lb BMI (Body Mass Index) 32.5 kg/m2 BSA (Body Surface Area) 2.15 m2 [place] body weight in kilograms 73 kg O2 % BldC Oximetry 95 % 08/23/2018 2:49pm BP Systolic Sitting Left Arm 148 mmHg BP Diastolic Sitting Left Arm 60 mmHg Heart Rate 82 /min Respiratory Rate 18 /min Height 69 inches 5'9" Weight 223.00 lb BMI (Body Mass Index) 32.9 kg/m2 BSA (Body Surface Area) 2.16 m2 [place] body weight in kilograms 73 kg O2 % BldC Oximetry 93 % 07/20/2018 2:45pm BP Systolic 148 mmHg recheck 129/75 BP Diastolic 66 mmHg recheck 129/75 Body Temperature 96.9 F Heart Rate 64 /min Respiratory Rate 18 /min Height 69 inches 5'9" Weight 215.12 lb BMI (Body Mass Index) 31.8 kg/m2 BSA (Body Surface Area) 2.13 m2 [place] body weight in kilograms 73 kg O2 % BldC Oximetry 96 % 07/01/2018 3:32pm BP Systolic Sitting Left Arm 144 mmHg BP Diastolic Sitting Left Arm 70 mmHg Heart Rate 64 /min Respiratory Rate 16 /min Height 69 inches 5'9" Weight 218.00 lb BMI (Body Mass Index) 32.2 kg/m2 BSA (Body Surface Area) 2.14 m2 [place] body weight in kilograms 73 kg 06/03/2018 3:39pm BP Systolic Sitting Left Arm 140 mmHg BP Diastolic Sitting Left Arm 64 mmHg Heart Rate 70 /min Respiratory Rate 16 /min Height 69 inches 5'9" Weight 215.00 lb BMI (Body Mass Index) 31.7 kg/m2 BSA (Body Surface Area) 2.13 m2 [place] body weight in kilograms 73 kg O2 [...] kg/m2 BSA (Body Surface Area) 2.14 m2 [place] body weight in kilograms 73 kg O2 % BldC Oximetry 97 % Ra 04/12/2018 3:37pm BP Systolic Sitting Left Arm 127 mmHg BP Diastolic Sitting Left Arm 68 mmHg Body Temperature 99.0 F Heart Rate 78 /min Respiratory Rate 18 /min Height 69 inches 5'9" Weight 218.00 lb BMI (Body Mass Index) 32.2 kg/m2 BSA (Body Surface Area) 2.14 m2 [place] body weight in kilograms 73 kg O2 % BldC Oximetry 94 % repeat 98% Ra 04/02/2018 2:26pm BP Systolic 169 mmHg BP Diastolic 70 mmHg Body Temperature 97.8 F Heart Rate 68 /min Respiratory Rate 18 /min Height 69 inches 5'9" Weight 217.50 lb BMI (Body Mass Index) 32.1 kg/m2 BSA (Body Surface Area) 2.14 m2 [place] body weight in kilograms 73 kg O2 % BldC Oximetry 96 % 02/17/2018 2:29pm BP Systolic Sitting Left Arm 130 mmHg BP Diastolic Sitting Left Arm 58 mmHg Heart Rate 70 /min Respiratory Rate 18 /min Height 69 inches 5'9" Weight 216.00 lb BMI (Body Mass Index) 31.9 kg/m2 BSA (Body Surface Area) 2.13 m2 [place] body weight in kilograms 73 kg 01/15/2018 2:13pm BP Systolic Sitting Right Arm 154 mmHg BP Diastolic Sitting Right Arm 72 mmHg Heart Rate 67 /min Respiratory Rate 16 /min Height 69 inches 5'9" Weight 218.00 lb BMI (Body Mass Index) 32.2 kg/m2 BSA (Body Surface Area) 2.14 m2 [place] body weight in kilograms 73 kg 12/30/2017 10:30am BP Systolic Sitting Left Arm 160 mmHg BP Diastolic Sitting Left Arm 86 mmHg Heart Rate 60 /min Respiratory Rate 16 /min Height 69 inches 5'9" Weight 216.00 lb BMI (Body Mass Index) 31.9 kg/m2 BSA (Body Surface Area) 2.13 m2 [place] body weight in kilograms 73 kg 12/21/2017 11:10am BP Systolic 142 mmHg BP Diastolic 80 mmHg Height 69 inches 5'9" Weight 215.00 lb BMI (Body Mass Index) 31.7 kg/m2 BSA (Body Surface Area) 2.13 m2 [place] body weight in kilograms 73 kg 12/07/2017 10:50am BP Systolic 179 mmHg BP Diastolic 79 mmHg Heart Rate 70 /min Respiratory Rate 18 /min Height 69 inches 5'9" Weight 210.00 lb BMI (Body Mass Index) 31.0 kg/m2 BSA (Body Surface Area) 2.11 m2 [place] body weight in kilograms 73 kg 11/16/2017 2:31pm BP Systolic 148 mmHg BP Diastolic 88 mmHg Height 69 inches 5'9" Weight 210.00 lb BMI (Body Mass Index) 31.0 kg/m2 BSA (Body Surface Area) 2.11 m2 [place] body weight in kilograms 73 kg 10/22/2017 3:28pm BP Systolic Sitting Left Arm 171 mmHg BP Diastolic Sitting Left Arm 79 mmHg Body Temperature 98.3 F Heart Rate 64 /min Respiratory Rate 18 /min Height 69 inches 5'9" Weight 216.00 lb BMI (Body Mass Index) 31.9 kg/m2 BSA (Body Surface Area) 2.13 m2 [place] body weight in kilograms 73 kg O2 % BldC Oximetry 97 % 10/16/2017 9:10am BP Systolic Sitting Left Arm 162 mmHg recheck 168/64 BP Diastolic Sitting Left Arm 71 mmHg recheck 168/64 Heart Rate 66 /min Respiratory Rate 16 /min Height 69 inches 5'9" Weight 212.00 lb BMI (Body Mass Index) 31.3 kg/m2 BSA (Body Surface Area) 2.12 m2 [place] body weight in kilograms 73 kg 10/14/2017 10:48am BP Systolic 128 mmHg BP Diastolic 70 mmHg Height 69 inches 5'9" Weight 213.00 lb BMI (Body Mass Index) 31.5 kg/m2 BSA (Body Surface Area) 2.12 m2 [place] body weight in kilograms 73 kg 10/05/2017 9:17am BP Systolic 142 mmHg BP Diastolic 80 mmHg Height 69 inches 5'9" Weight 213.00 lb BMI (Body Mass Index) 31.5 kg/m2 BSA (Body Surface Area) 2.12 m2 [place] body weight in kilograms 73 kg 09/30/2017 8:50am BP Systolic Sitting Left Arm 160 mmHg BP Diastolic Sitting Left Arm 76 mmHg Heart Rate 66 /min Respiratory Rate 16 /min Height 69 inches 5'9" Weight 217.00 lb BMI (Body Mass Index) 32.0 kg/m2 BSA (Body Surface Area) 2.14 m2 [place] body weight in kilograms 73 kg 09/11/2017 [...] kg/m2 BSA (Body Surface Area) 2.10 m2 [place] body weight in kilograms 73 kg 03/17/2017 9:44am BP Systolic Sitting Right Arm 140 mmHg BP Diastolic Sitting Right Arm 80 mmHg Height 69 inches 5'9" Weight 201.00 lb BMI (Body Mass Index) 29.7 kg/m2 BSA (Body Surface Area) 2.07 m2 [place] body weight in kilograms 73 kg 01/09/2017 [...] Date Facility Test Result H/L Range Note HIV Screen 4TH [facility] HIV Screen 4th Non Reactive Non Reactive 1, 2 Gen Reflex [address] [place] [address] [phone] Hepatitis [facility] Hepatitis A Negative Negative Evaluation [address] [place] [place] [address] [phone] HBsAg Screen [Ref Lab] Negative Negative Hepatitis B Core IgM Negative Negative HCV Signal/Cutoff ratio 0.1 s/corat 0.0-0.9 3 Laboratory test 10/30/2018 [facility] Gamma Glutamyl 58 U/L N 5-[address] [place] [address] [phone] Laboratory test 10/20/2018 [facility] Urine Creatinine 99 mg/dL finding [address] [place] [address] [phone] Urine Dipstick 10/20/2018 [facility] Ua Color yellow Yellow Ua Clarity clear Clear Ua Leuko negative Negative Ua Nitrite negative Negative Ua Urobilinogen negative Low 0.2 - 1.0 E.U./dL Ua Protein negative Negative Ua PH 6.0 Low 6.5-7.5 Ua Blood negative Negative Ua Specific [place] 1.025 1.010-1.030 Ua Ketones negative Negative Ua Bilirubin negative Negative Ua Glucose 1+ High Negative Comprehensive Metabolic 10/20/2018 [facility] Glucose 174 mg/dL High 74-[address] [place] [address] [phone] BUN 20 mg/dL High 7-18 Creatinine 1.2 mg/dL N 0.6-1.3 Glom Filtration Rate, Estimate >60 mL/min >60 If >60 mL/min >60 5 BUN/Creat 16.6 ratio Sodium 137 mmol/L N [...] Phosphatase 88 U/L N 45-117 Glycohemoglobin 10/20/2018 [facility] Glycohemoglobin 8.2 % High 4.2-6.3 [address] (A1c) [place] [address] [phone] eAG 189 mg/dL Laboratory 10/20/2018 [facility] Vitamin 8.7 ng/mL Low 30.0-100.0 7 test finding [address] D,25-[place] [address] [phone] CBC 10/20/2018 [facility] White Blood 5.6 K/uL N 3.4-10.5 W/Automated [address] [place] [address] [phone] Red Blood Count 4.72 M/uL N 4.20-5.80 [...] 33.0-73.0 Lymph % 29.8 % N 20.0-42.0 [place] % 9.3 % N 0.0-10.0 Eo% 1.6 % N 0.0-6.6 Bas% 0.4 % N 0.0-1.1 Neut# 3.31 K/uL N 1.8-7.0 Lymph # 1.67 K/uL N 1.0-4.0 [place] # 0.52 K/uL N 0.0-0.8 Eos # 0.09 K/uL N 0.0-0.5 Baso # 0.02 K/uL N 0.0-0.1 LDL Cholesterol Profile 10/20/2018 [facility] Cholesterol 123 mg/dL <200 8 [address] [place], [place] [address] [phone] Triglycerides 466 mg/dL High <150 9 HDL Cholesterol 21 mg/dL Low >40 10 LDL-Cholesterol TNP mg/dL < 100 11 LDL Cholesterol Profile 07/20/2018 [facility] Cholesterol 81 mg/dL <200 12 [address], [place] [id number] [phone] Triglycerides 204 mg/dL High <150 13 HDL Cholesterol 17 mg/dL Low >40 14 LDL-Cholesterol 23 mg/dL < 100 15 Basic Metabolic Panel 07/20/2018 [facility] Glucose 143 mg/dL High 74-106 [address], [place] [id number] [phone] BUN 23 mg/dL High 7-18 Creatinine 1.2 mg/dL N 0.6-1.3 Glom Filtration Rate, Estimate >60 mL/min >60 If >60 mL/min >60 16 BUN/Creat 19.1 ratio Sodium 143 mmol/L N 136-145 Potassium 4.5 mmol/L N 3.5-5.1 Chloride 108 mmol/L High 98-107 Carbon Dioxide 29 mmol/L N 21-32 Anion Gap 6 mEq/L Low 8-16 Calcium 8.1 mg/dL Low 8.5-10.1 Glycohemoglobin 07/20/2018 [facility] Glycohemoglobin 6.8 % High 4.2-6.3 17 A1c [address] [facility] (A1c) [place], [place] [id number] [phone] eAG 148 mg/dL Comprehensive 04/09/2018 [facility] Glucose 204 mg/dL High 74-106 18 Metabolic Panel [address] [place] [address] [phone] BUN 17 mg/dL N 7-18 Creatinine 1.1 mg/dL N 0.6-1.3 Glom Filtration Rate, Estimate >60 mL/min >60 If >60 mL/min >60 19 BUN/Creat 15.4 ratio Sodium 139 mmol/L N [...] Phosphatase 81 U/L N 45-117 Glycohemoglobin 04/09/2018 [facility] Glycohemoglobin 7.9 % High 4.2-6.3 20 A1c [address] [facility] (A1c) [place], [place] [id number] [phone] eAG 180 mg/dL LDL Cholesterol Profile 04/09/2018 [facility] Cholesterol 100 mg/dL <200 21 [address] [place] [address] [phone] Triglycerides 386 mg/dL High <150 22 HDL Cholesterol 21 mg/dL Low >40 23 LDL-Cholesterol 2 mg/dL < 100 24 Microalb/Creat 04/09/2018 [facility] Microalbumin,Urine 7.7 mg/L < 20.0 Ratio,Random [address], [place] [id number] [phone] Microalbumin/Creatinine Ratio 16.7 ug/mgCrt < 30.0 Urine Creatinine Conc 46 mg/dL Microalb/Creat 01/15/2018 [facility] Microalbumin,Urine 6.1 mg/L < 20.0 Ratio,Random [address] [place] [address] [phone] Microalbumin/Creatinine Ratio 13.6 ug/mgCrt < 30.0 Urine [...] 6.5-7.5 Ua Blood n Negative Ua Specific [place] 1.015 1.010-1.030 Ua Ketones n Negative Ua [...] 12/29/2017 N2N/CCD Import Serum or plasma 8.7 8.5-10. calcium measurement calcium measurement 1 (mass/volume) (mass/volume) Serum or plasma 12/29/2017 N2N/CCD [...] N2N/CCD Import RDW RBC Auto-Rto 13.5 11.6- 15 .8 RDW RBC Auto 12/29/2017 N2N/CCD Import RDW RBC Auto 42.5 36-51 Potassium SerPl-sCnc 12/29/2017 N2N/CCD Import Potassium SerPl-sCnc 4.2 3.5-5.1 Serum or plasma 12/29/2017 N2N/CCD Import Serum [...] Import Serum sodium 139 136-145 measurement measurement Glycohemoglobin A1c 12/29/2017 [facility] Glycohemoglobin 7.7 % High 4.2-6.3 25, [address] (A1c) 26 [place] [address] [phone] eAG 174 mg/dL Comprehensive Metabolic 12/29/2017 [facility] Glucose 221 mg/dL High 74-[address] [place], [place] [id number] [phone] BUN 19 mg/dL High 7-18 Creatinine 1.2 mg/dL N 0.6-1.3 Glom Filtration Rate, Estimate >60 mL/min >60 If >60 mL/min >60 27 BUN/Creat 15.8 ratio Sodium 139 mmol/L N [...] 12-78 Alkaline Phosphatase 83 U/L N 45-117 LDL Cholesterol Profile 12/29/2017 [facility] Cholesterol 107 mg/dL <[address] [place], [place] [id number] [phone] Triglycerides 299 mg/dL High <150 29 HDL Cholesterol 22 mg/dL Low >40 30 LDL-Cholesterol 25 mg/dL < 100 31 CBS W/Automated Diff 12/29/2017 [facility] White Blood 4.4 K/uL N 3.4-10.[address] [place] [address] [phone] Red Blood Count 4.68 M/uL N 4.20-5.80 [...] 33.0-73.0 Lymph % 33.4 % N 20.0-42.0 [place] % 11.7 % High 0.0-10.0 Eo% 2.7 % N 0.0-6.6 Bas% 0.2 % N 0.0-1.1 Neut# 2.27 K/uL N 1.8-7.0 Lymph # 1.46 K/uL N 1.0-4.0 [place] # 0.51 K/uL N 0.0-0.8 Eos # 0.12 K/uL N 0.0-0.5 Baso # 0.01 K/uL N 0.0-0.1 Alt SerPl-cCnc 12/29/2017 N2N/CCD Import Alt SerPl-cCnc [...] mean erythrocyte mean corpuscular volume corpuscular volume Neutrophils/leuk 12/29/2017 N2N/CCD Import Neutrophils/leuk 52.0 33.0- [...] automated count automated count (number/volume) (number/volume) Blood hemoglobin 12/29/2017 N2N/CCD Import Blood hemoglobin 13.9 12.8- 17.0 measurement measurement (mass/volume) (mass/volume) BUN/Creat SerPl 12/29/2017 N2N/CCD Import BUN/Creat SerPl 15.8 Basophils/leuk NFr 12/29/2017 N2N/CCD Import Basophils/leuk NFr 0.2 0.0- 1.1 Bld Auto Bld Auto Blood erythrocytes 12/29/2017 N2N/CCD Import Blood erythrocytes 4.68 4.20-5.80 automated count automated count (number/volume) (number/volume) Blood estimated 12/29/2017 N2N/CCD Import Blood estimated 174 average glucose average glucose determination by e determination by estimation from glycated hemoglobin (mass/volume) Capillary blood 11/05/2017 N2N/CCD Import Capillary blood 144 High 70- 110 glucose glucose measurement by measurement by glucometer glucometer (mass/volume) Basic Metabolic 10/30/2017 [facility] Glucose 202 High 74-106 [address] mg/[place] [address] [phone] BUN 20 mg/dL High 7-18 Creatinine 1.1 mg/dL N 0.6-1.3 Glom Filtration Rate, Estimate >60 mL/min >60 If >60 mL/min >60 33 BUN/Creat 18.1 ratio Sodium 139 mmol/L N 136-145 Potassium 4.4 mmol/L N 3.5-5.1 Chloride 105 mmol/L N 98-107 Carbon Dioxide 27 mmol/L N 21-32 Anion Gap 7 mEq/L Low 8-16 Calcium 9.0 mg/dL N 8.5-10.1 Liver Function Tests 10/30/2017 [facility] Total Protein 7.8 g/dL N 6.4-8.2 [address] [place] [address] [phone] Albumin 3.8 g/dL N 3.4-5.0 Globulin 4.0 g/dL N 1.9-4.3 Alb/Glob 1.0 ratio Bilirubin,Total 0.3 mg/dL N 0.2-1.0 Bilirubin,Direct < 0.1 mg/dL N 0.0-0.2 Bilirubin,Indirect 0.2 mg/dL N 0.0-0.9 Sgot/Ast 70 U/L High 15-37 SGPT/Alt 113 U/L High 12-78 Alkaline Phosphatase 73 U/L N 45-117 Laboratory test 10/30/2017 [facility] Act Partial 24.9 seconds N 23.4-35.0 [address] [place] [address] [place] [address] [phone] Protime 10/30/2017 [facility] Protime 12.8 seconds N 12.0-14.4 [address] [place] [address] [phone] Inr 1.0 N 0.9-1.1 35 CBC 10/30/2017 [facility] White Blood Count 5.2 K/uL N 3.4-10.5 [address] [place] [address] [phone] Red Blood Count 4.93 M/uL N 4.20-5.80 [...] bilirubin measurement (ma measurement (mass/volume) Comprehensive 10/12/2017 [facility] Glucose 185 High 74-106 36 Metabolic Panel [address] mg/[place] [address] [phone] BUN 17 mg/dL N 7-18 Creatinine 1.2 mg/dL N 0.6-1.3 Glom Filtration Rate, Estimate >60 mL/min >60 If >60 mL/min >60 37 BUN/Creat 14.1 ratio Sodium 140 mmol/L N [...] Phosphatase 58 U/L N 45-117 Glycohemoglobin 10/12/2017 [facility] Glycohemoglobin 7.2 % High 4.2-6.3 [address] (A1c) [place], [place] [id number] [phone] eAG 160 mg/dL Microalb/Creat 10/12/2017 [facility] Microalbumin,Urine 12.2 < 20.0 Ratio,Random [address] mg/L [place], [place] [address] [phone] Microalbumin/Creatinine Ratio 8.0 ug/mgCrt < 30.0 Urine Creatinine Conc 153 mg/dL LDL Cholesterol Profile 10/12/2017 [facility] Cholesterol 111 mg/dL <[address] [place], [place] [id number] [phone] Triglycerides 163 mg/dL High <150 40 HDL Cholesterol 25 mg/dL Low >40 41 LDL-Cholesterol 53 mg/dL < 100 42 Laboratory test 10/09/2017 [facility] Triglycerides 129 mg/dL <150 43, 44 finding [address] [place] [address] [phone] Hepatitis C Antibody < 0.1 s/corat 0.0-0.9 45 Ceruloplasmin 10/09/2017 [facility] Ceruloplasmin 24.0 mg/dL 16.0-31.0 46 [address] [place] [address] [phone] Height 5 9 Weight 217 [place] Fibrosure 10/09/2017 [facility] Ramirez Fibrosis 0.29 High 0.00-0.[address] [place] [address] [phone] Ramirez Fibrosis Stage (SEE NOTE) 47 Ramirez Steatosis Score 0.76 High 0.00-0.30 Ramirez Steatosis Grade (SEE NOTE) 48 Ramirez Score 0.50 0.25 Ramirez Grade (SEE NOTE) 49 Height 60 Inches . Weight Measured 217 LBS . [id number] 224 mg/dL 110-276 Haptoglobin 234 mg/dL High 34-200 Apolipoprotein A-1 94 mg/dL Low 101-178 Bilirubin,Total 0.3 mg/dL 0.0-1.2 GGT 32 IU/L 0-65 Alt (SGPT) 55 IU/L 0-55 Alt (Sgot) P5P 37 IU/L 0-40 Cholesterol,Total 118 mg/dL 100-199 Glucose, Serum 159 mg/dL High 65-99 Triglycerides 130 mg/dL 0-149 Ramirez Interpretations: (SEE NOTE) 50 Fibrosis Scoring (SEE NOTE) 51 Steatosis Grading (SEE NOTE) 52 Ramirez Scoring (SEE NOTE) 53 Ramirez Limitations (SEE NOTE) 54 Ramirez Comment 2 (SEE NOTE) 55 Height 5 9 Weight 217 Aspartate 10/09/2017 N2N/CCD Import Aspartate 37 0-40 aminotransferase aminotransferase [Enzymatic [Enzymatic activity/vol activity/volume] in Serum or Plasma by With P-5'-P Unloinc 10/09/2017 N2N/CCD Import Unloinc 0.76 High 0.00-0.3 0 Unloinc See Note 56 Unloinc See Note 57 Unloinc See Note 58 Unloinc See Note 59 Body height Measured 10/09/2017 N2N/CCD Import Body height Measured 60 . Body weight Measured 10/09/2017 N2N/CCD Import Body weight Measured 217 . Cholesterol 10/09/2017 N2N/CCD Import Cholesterol 118 100- [Mass/volume] in [Mass/volume] in 199 Serum or Plasma Serum or Plasma Fibrosis score 10/09/2017 N2N/CCD Import Fibrosis score 0.29 High 0.00 -0.2 1 Glucose [Mass/volume] 10/09/2017 N2N/CCD Import Glucose [Mass/volume] 159 High 65-9 in Serum or Plasma in Serum or Plasma 9 Necroinflammatory 10/09/2017 N2N/CCD Import Necroinflammatory 0.50 0.25 activity score activity score Serum or plasma 10/09/2017 N2N/CCD Import Serum or plasma 55 0-55 alanine alanine aminotransferase aminotransferase measureme measurement with P-5'-P (enzymatic activity/volume) Serum or plasma 10/09/2017 N2N/CCD Import Serum or plasma 224 110- sbanw-9-fgmmukumcbkyq eaduf-0-shqsghwxpjedo 276 measurement measurement (mass/volume) Serum or plasma 10/09/2017 N2N/CCD Import Serum or plasma 94 Low 101- apolipoprotein A-I apolipoprotein A-I 178 measurement (ma measurement (mass/volume) Serum or plasma 10/09/2017 N2N/CCD Import Serum or plasma 24.0 16.0 ceruloplasmin ceruloplasmin -31. measurement (mass/vo measurement 0 (mass/volume) Serum or plasma gamma 10/09/2017 N2N/CCD Import Serum or plasma gamma 32 0-65 glutamyl transferase glutamyl transferase measure measurement (enzymatic activity/volume) Serum or plasma 10/09/2017 N2N/CCD Import Serum or plasma 234 High 34-2 haptoglobin haptoglobin 00 measurement measurement (mass/volu (mass/volume) Serum or plasma total 10/09/2017 N2N/CCD Import Serum or plasma total 0.3 0.0- bilirubin measurement bilirubin measurement 1.2 (mass/ (mass/volume) Service comment 10/09/2017 N2N/CCD Import Service comment See 60 Note Microalb/Creat 06/15/2017 [facility] Microalbumin/Creatini TNP < 61, Ratio,Random [address] ne Ratio ug/mgCr 30.0 62 [place] [address] [phone] Urine Creatinine Conc 29 mg/dL Microalbumin,Random 06/15/2017 [facility] Microalbumin,Urine < 5.0 < Urine [address] mg/L 20.0 [place] [address] [phone] Comprehensive 06/12/2017 [facility] Glucose 116 High 74-10 63 Metabolic Panel [address] mg/dL 6 [place], [place] [id number] [phone] BUN 16 mg/dL N 7-18 Creatinine 1.2 mg/dL N 0.6-1.3 Glom Filtration Rate, Estimate >60 mL/min >60 If >60 mL/min >60 64 BUN/Creat 13.3 ratio Sodium 143 mmol/L N [...] U/L N 45-117 CBS W/Automated Diff 06/12/2017 [facility] White Blood 4.2 K/uL N 3.4-10.[address] [place] [address] [phone] Red Blood Count 4.82 M/uL N 4.20-5.80 [...] 33.0-73.0 Lymph % 37.1 % N 20.0-42.0 [place] % 11.2 % High 0.0-10.0 Eo% 2.1 % N 0.0-6.6 Bas% 0.5 % N 0.0-1.1 Neut# 2.06 K/uL N 1.8-7.0 Lymph # 1.56 K/uL N 1.0-4.0 [place] # 0.47 K/uL N 0.0-0.8 Eos # 0.09 K/uL N 0.0-0.5 Baso # 0.02 K/uL N 0.0-0.1 LDL Cholesterol Profile 06/12/2017 [facility] Cholesterol 103 mg/dL <[address] [place], [place] [id number] [phone] Triglycerides 116 mg/dL <150 66 HDL Cholesterol 29 mg/dL Low >40 67 LDL-Cholesterol 51 mg/dL < 100 68 Glycohemoglobin A1c 06/12/2017 [facility] Glycohemoglobin 6.0 % N 4.2-6.[address] (A1c) [place] [address] [phone] eAG 126 mg/dL Poct glucose 02/03/2017 N2N/CCD [...] by: Performed By Blood Gas w [facility] Clinical Lytes Staff Poc Art O2 Sat [...] Expiration Date 02/01/2017 Testing site Performed At [address] [place] [address] Transfusion status Ok To Transfuse Transfusion status Ok To Transfuse Transfusion status Ok To Transfuse Transfusion status Ok To Transfuse Unit Division 0 1 Unit Division 0 1 Unit Division 0 1 Unit Division 0 1 Unit Number [id number] Unit Number [id number] Unit Number [id number] Unit Number [id number] Unit status Rel From Alloc Unit status Rel From Alloc Unit status Rel From Alloc Unit status Rel From Alloc Type and screen 01/15/2017 N2N/CCD Import Antibody Screen Negative Blood bank comment See Notes Patient Abo/Rh B Positive Specimen Expiration Date 01/30/2017 Testing site Performed At [address] [place] [id number] Protime-Inr 01/15/2017 N2N/CCD Import Inr 0.97 1 [...] 7.0 10*3/uL 4.1 - 11.0 Comprehensive 11/13/2016 [facility] Glucose 201 mg/dL High 74-106 70 Metabolic Panel [address] [place], [place] [id number] [phone] BUN 21 mg/dL High 7-18 Creatinine 1.3 mg/dL N 0.6-1.3 Glom Filtration Rate, Estimate 60 mL/min >60 If >60 mL/min >60 71 BUN/Creat 16.1 ratio Sodium 139 mmol/L N [...] U/L N 45-117 LDL Cholesterol Profile 11/13/2016 [facility] Cholesterol 90 mg/dL <[address] [place] [address] [phone] Triglycerides 320 mg/dL High <150 73 HDL Cholesterol 24 mg/dL Low >40 74 LDL-Cholesterol 2 mg/dL < 100 75 Glycohemoglobin 11/13/2016 [facility] Glycohemoglobin 7.8 % High 4.2-6.3 [address] (A1c) [place] [address] [phone] eAG 177 mg/dL CBS W/Automated Diff 11/13/2016 [facility] White Blood 5.1 K/uL N 3.4-10.[address] [place] [address] [phone] Red Blood Count 4.87 M/uL N 4.20-5.80 [...] 33.0-73.0 Lymph % 37.6 % N 20.0-42.0 [place] % 10.6 % High 0.0-10.0 Eo% 2.2 % N 0.0-6.6 Bas% 0.6 % N 0.0-1.1 Neut# 2.50 K/uL N 1.8-7.0 Lymph # 1.92 K/uL N 1.0-4.0 [place] # 0.54 K/uL N 0.0-0.8 Eos # 0.11 K/uL N 0.0-0.5 Baso # 0.03 K/uL N 0.0-0.1 CBS W/Automated 07/11/2016 [facility] White Blood 4.2 K/uL N 3.4-10.5 [address] [place] [address] [phone] Red Blood Count 4.73 M/uL N 4.20-5.80 [...] 33.0-73.0 Lymph % 37.3 % N 17.0-56.0 [place] % 13.5 % High 0.0-10.0 Eo% 2.1 % N 0.0-5.0 Bas% 0.5 % N 0.1-1.0 Neut# 1.96 K/uL N 1.8-7.0 Lymph # 1.57 K/uL Low 1.8-7.0 [place] # 0.57 K/uL N 0.0-0.8 Eos # 0.09 K/uL N 0.0-0.5 Baso # 0.02 K/uL Low 0.1-0.2 Comprehensive Metabolic 07/11/2016 [facility] Glucose 186 mg/dL High 74-[address] [place], [place] [id number] [phone] BUN 17 mg/dL N 7-18 Creatinine 1.2 mg/dL N 0.6-1.3 Glom Filtration Rate, Estimate >60 mL/min N >60 If >60 mL/min N >60 78 BUN/Creat 14.1 ratio N Sodium 140 mmol/L [...] Phosphatase 79 U/L N 45-117 Glycohemoglobin 07/11/2016 [facility] Glycohemoglobin 8.0 % High 4.2-6.3 79 A1c [address] [facility] (A1c) [place] [address] [phone] eAG 183 mg/dL N LDL Cholesterol Profile 07/11/2016 [facility] Cholesterol 105 mg/dL N <200 80 [address] [place] [address] [phone] Triglycerides 286 mg/dL High <150 81 HDL Cholesterol 21 mg/dL Low >40 82 LDL-Cholesterol 27 mg/dL N < 100 83 Basic Metabolic Panel 11/22/2015 [facility] Glucose 123 mg/dL High 74-106 [address] [place] [address] [phone] BUN 22 mg/dL High 7-18 Creatinine 1.2 mg/dL 0.6-1.3 Glom Filtration Rate, Estimate >60 mL/min >60 If >60 mL/min >60 84 BUN/Creat 18.3 ratio Sodium 140 mmol/L 136-145 Potassium 4.0 mmol/L 3.5-5.1 Chloride 105 mmol/L 98-107 Carbon Dioxide 27 mmol/L 21-32 Anion Gap 8 mEq/L 8-16 Calcium 8.8 mg/dL 8.5-10.1 Laboratory test finding 11/24/2014 [facility] BUN 23 mg/dL High 7-18 [address] [place] [address] [phone] Basic Metabolic Panel 11/20/2014 [facility] Glucose 109 mg/dL High 74-106 [address] [place] [address] [phone] BUN 16 mg/dL 7-18 Creatinine 1.4 mg/dL High 0.6-1.3 Glom Filtration Rate, Estimate 56 mL/min >60 If >60 mL/min >60 85 BUN/Creat 11.4 ratio Sodium 139 mmol/L 136-145 Potassium 4.3 mmol/L 3.5-5.1 Chloride 107 mmol/L 98-107 Carbon Dioxide 28 mmol/L 21-32 Anion Gap 4 mEq/L Low 8-16 Calcium 9.0 mg/dL 8.5-10.1 Liver Function Tests 07/31/2014 [facility] Total Protein 7.4 g/dL 6.4-8.2 [address] [place] [address] [phone] Albumin 3.6 g/dL 3.4-5.0 Globulin 3.8 g/dL 1.9-4.3 Alb/Glob 0.9 ratio Bilirubin,Total 0.4 mg/dL 0.2-1.0 Bilirubin,Direct < 0.1 mg/dL 0.0-0.2 Bilirubin,Indirect 0.3 mg/dL 0.0-0.9 Sgot/Ast 32 U/L 15-37 SGPT/Alt 69 U/L 12-78 Alkaline Phosphatase 74 U/L 45-117 LDL Cholesterol 07/31/2014 [facility] Cholesterol 105 mg/dL < 200 86 Profile [address] [place] [address] [phone] Triglycerides 163 mg/dL < 150 87 HDL Cholesterol 22 mg/dL > 40 88 LDL-Cholesterol 50 mg/dL < 100 89 Basic Metabolic Panel 07/31/2014 [facility] Glucose 149 mg/dL High 74-106 [address] [place] [address] [phone] BUN 13 mg/dL 7-18 Creatinine 1.1 mg/dL 0.6-1.3 Glom Filtration Rate, Estimate >60 mL/min >60 If >60 mL/min >60 90 BUN/Creat 11.8 ratio Sodium 138 mmol/L 136-145 Potassium 4.5 mmol/L 3.5-5.1 Chloride 106 mmol/L 98-107 Carbon Dioxide 23 mmol/L 21-32 Anion Gap 14 mEq/L 8-16 Calcium 9.2 mg/dL 8.5-10.1 Basic Metabolic Panel See Note 91 Glycohemoglobin 07/31/2014 [facility] Glycohemoglobin 6.9 % High 4.2-6.3 [address] (A1c) [place], [place] [id number] [phone] eAG 151 mg/dL LDL Cholesterol 04/08/2013 [facility] Cholesterol 97 mg/dL Low 120-[address] [place], [place] [address] [phone] Triglycerides 426 mg/dL High 16-231 HDL Cholesterol 19 mg/dL Low 29-83 LDL-Cholesterol See Note mg/dL 62-185 93 Liver Function Tests 04/08/2013 [facility] Total Protein 7.1 g/dL 6.3-8.[address] [place] [address] [phone] Albumin 3.7 g/dL 3.5-5.0 Globulin 3.4 g/dL 1.9-4.3 Alb/Glob 1.1 ratio Bilirubin,Total 0.3 mg/dL 0.2-1.2 Bilirubin,Direct < 0.1 mg/dL Low 0.1-0.4 Bilirubin,Indirect 0.2 mg/dL 0.0-0.9 Sgot/Ast 35 U/L 16-40 SGPT/Alt 65 U/L 30-65 Alkaline Phosphatase 99 U/L 50-136 Laboratory test 04/08/2013 [facility] Thyroid Stim 1.78 uIU/mL 0.49-4.[address] [place] [address] [phone] CBS W/Automated 04/08/2013 [facility] White Blood 6.0 K/uL 3.4-10.[address] [place] [address] [phone] Red Blood Count 4.82 M/uL 4.20-5.80 Hemoglobin [...] % 33.0-73.0 Lymph % 32.2 % 17.0-56.0 [place] % 10.5 % High 0.0-10.0 Eo% 1.0 % 0.0-5.0 Bas% 0.2 % 0.1-1.0 Neut# 3.36 K/uL 1.8-7.0 Lymph # 1.93 K/uL 1.2-4.0 [place] # 0.63 K/uL High 0.0-0.6 Eos # 0.06 K/uL 0.0-0.5 Baso # 0.01 K/uL Low 0.1-0.2 Basic Metabolic Panel 04/08/2013 [facility] Glucose 270 mg/dL High 76-[address] [place] [address] [phone] BUN 17 mg/dL 5-23 Creatinine 1.0 mg/dL 0.5-1.4 Glom Filtration Rate, Estimate >60 mL/min >60 If >60 mL/min >60 94 BUN/Creat 17.0 ratio Sodium 138 mmol/L 136-145 Potassium 4.2 mmol/L 3.5-5.1 Chloride 104 mmol/L 98-107 Carbon Dioxide 27 mEq/L 18-29 Anion Gap 11 mEq/L 8-16 Calcium 8.8 mg/dL 8.5-10.1 Glycohemoglobin 04/08/2013 [facility] Glycohemoglobin 11.9 % High 4.8-6.0 [address] (A1c) [place] [address] [phone] eAG 295 mg/dL Laboratory test 04/08/2013 [facility] Prostate 1.41 ng/mL 0.0-4.0 [address] [place] [address] [phone] LDL Cholesterol 12/20/2012 [facility] Cholesterol 129 mg/dL 120-[address] [place] [address] [phone] Triglycerides 555 mg/dL High 16-231 HDL Cholesterol 23 mg/dL Low 29-83 LDL-Cholesterol See Note mg/dL 62-185 97 Liver Function Tests 12/20/2012 [facility] Total Protein 7.8 g/dL 6.3-8.0 [address] [place] [address] [phone] Albumin 3.7 g/dL 3.5-5.0 Globulin 4.1 g/dL 1.9-4.3 Alb/Glob 0.9 ratio Bilirubin,Total 0.3 mg/dL 0.2-1.2 Bilirubin,Direct < 0.1 mg/dL Low 0.1-0.4 Bilirubin,Indirect 0.2 mg/dL 0.0-0.9 Sgot/Ast 26 U/L 16-40 SGPT/Alt 68 U/L High 30-65 Alkaline Phosphatase 134 U/L 50-136 Comprehensive Metabolic 03/05/2012 [facility] Glucose 270 mg/dL High 76-115 Panel [address] [place] [address] [phone] BUN 15 mg/dL 5-23 Creatinine 1.2 mg/dL 0.5-1.4 Glom Filtration Rate, Estimate >60 mL/min >60 If >60 mL/min >60 98 BUN/Creat 12.5 ratio Sodium 136 mmol/L 136-145 [...] 76 U/L 50-136 CBC W/Automated Diff 03/05/2012 [facility] White Blood 6.2 K/uL 3.4-10.5 [address] [facility] [place] [address] [phone] Red Blood Count 4.78 M/uL 4.20-5.80 Hemoglobin [...] % 33.0-73.0 Lymph % 37.7 % 17.0-56.0 [place] % 11.4 % High 0.0-10.0 Eo% 1.5 % 0.0-5.0 Bas% 0.2 % 0.1-1.0 Neut# 3.03 K/uL 1.8-7.0 Lymph # 2.32 K/uL 1.2-4.0 [place] # 0.70 K/uL High 0.0-0.6 Eos # 0.09 K/uL 0.0-0.5 Baso # 0.01 K/uL Low 0.1-0.2 LDL Cholesterol 03/05/2012 [facility] Cholesterol 113 mg/dL Low 120-200 Profile [address] [place] [address] [phone] Triglycerides 342 mg/dL High 16-231 HDL Cholesterol 21 mg/dL Low 29-83 LDL-Cholesterol 24 mg/dL Low 62-185 Laboratory test 03/05/2012 [facility] Thyroid Stim 1.62 uIU/mL 0.49-4.67 finding [address] [place] [address] [phone] Prostate Specific Antigen 1.72 ng/mL 0.0-4.0 99 LDL Cholesterol 09/01/2011 [facility] Cholesterol 124 mg/dL 120-200 Profile [address] [place] [address] [phone] Triglycerides 288 mg/dL High 16-231 HDL Cholesterol 20 mg/dL Low 29-83 LDL-Cholesterol 46 mg/dL Low 62-185 Liver Function Tests 09/01/2011 [facility] Total Protein 7.4 g/dL 6.3-8.0 [address] [place] [address] [phone] Albumin 3.7 g/dL 3.5-5.0 Bilirubin,Total 0.4 mg/dL 0.2-1.2 Bilirubin,Direct 0.1 mg/dL 0.1-0.4 Bilirubin,Indirect 0.3 mg/dL 0.0-0.9 Sgot/Ast 44 U/L High 16-40 SGPT/Alt 82 U/L High 30-65 Alkaline Phosphatase 82 U/L 50-136 Globulin 3.7 g/dL 1.9-4.3 Alb/Glob 1.0 ratio CBC W/Automated Diff 09/01/2011 [facility] White Blood 5.8 K/uL 3.4-10.[address] [place] [address] [phone] Red Blood Count 4.98 M/uL 4.20-5.80 Hemoglobin 15.0 gm/dL 12.8-17.0 Hematocrit 44.7 % 38.0-48.0 Mean Cell Volume 89.8 fl 80.0-96.0 Mean Corpuscular HGB 30.1 pg 27.0-33.0 Mean Corpuscular HGB Conc 33.6 g/dL 31.7-36.0 Platelet Count 216 K/uL 150-400 Red Cell Distri Width %CV 12.8 % 11.6-15.8 Mean Platelet Volume 11.0 fL High 6.6-10.6 Neut% 52.9 % 33.0-73.0 Lymph % 34.7 % 17.0-56.0 [place] % 10.8 % High 0.0-10.0 Eo% 1.4 % 0.0-5.0 Bas% 0.2 % 0.1-1.0 Neut# 3.05 K/uL 1.8-7.0 Lymph # 2.00 K/uL 1.2-4.0 [place] # 0.62 K/uL High 0.0-0.6 Eos # 0.08 K/uL 0.0-0.5 Baso # 0.01 K/uL Low 0.1-0.2 Red Cell Distri Width SD 41.3 fl 36-51 Laboratory test 09/01/2011 [facility] Thyroid Stim 1.69 uIU/mL 0.49-4.[address] Hormone [place], [place] [id number] [phone] Prostate Specific Antigen 1.50 ng/mL 0.0-4.0 100 Liver Function Tests 09/12/2010 [facility] Total Protein 7.7 g/dL 6.3-8.0 [address] [place] [address] [phone] Albumin 3.8 g/dL 3.5-5.0 Bilirubin,Total 0.5 mg/dL 0.2-1.2 Bilirubin,Direct 0.1 mg/dL 0.1-0.4 Bilirubin,Indirect 0.4 mg/dL 0.0-0.9 Sgot/Ast 53 U/L High 16-40 SGPT/Alt 106 U/L High 30-65 Alkaline Phosphatase 109 U/L 50-136 Globulin 3.9 gm/dL 1.9-4.3 Alb/Glob 1.0 LDL Cholesterol 09/12/2010 [facility] Cholesterol 125 mg/dL 120-200 Profile [address] [place] [address] [phone] Triglycerides 324 mg/dL High 0-210 HDL Cholesterol 24 mg/dL Low 32-96 LDL-Cholesterol 36 mg/dL Low 62-185 LDL Cholesterol 02/19/2010 [facility] Cholesterol 122 mg/dL 120-200 Profile [address] [place] [address] [phone] Triglycerides 357 mg/dL High 0-210 HDL Cholesterol 29 mg/dL Low 32-96 LDL-Cholesterol 22 mg/dL Low 62-185 Liver Function Tests 02/19/2010 [facility] Total Protein 7.5 g/dL 6.3-8.0 [address] [place] [address] [phone] Albumin 3.6 g/dL 3.5-5.0 Bilirubin,Total 0.3 mg/dL 0.2-1.2 Bilirubin,Direct 0.0 mg/dL Low 0.1-0.4 Bilirubin,Indirect 0.3 mg/dL 0.0-0.9 Sgot/Ast 32 U/L 16-40 SGPT/Alt 90 U/L High 30-65 Alkaline Phosphatase 111 U/L 50-136 Globulin 3.9 gm/dL 1.9-4.3 Alb/Glob 0.9 1 R94.5 2 Performed at: RN - [facility] [address] [id number] Pipe Stress Engineer: Karyn Marrero MD, Phone: [phone] INFCE Result Units: s/co ratio Negative: < 0.8 Indeterminate: 0.8 - 0.9 Positive: > 0.9 The CDC recommends that a positive HCV antibody result be followed up with a HCV Nucleic Acid Amplification test (305412). Performed at: [facility] [address] [id number] Pipe Stress Engineer: Karyn Marrero MD, Phone: [phone] E78.5,E11.42 5 Note: Persistent reduction for 3 months or more in an eGFR <60 mL/min/1.73 m2 defines CKD. Patients with eGFR values >/=60 mL/min/1.73 m2 may also have CKD if evidence of persistent proteinuria is present. The original MDRD equation for estimated GFR is not valid for patients less than 18 years of age. Additional information may be found at www.kdoqi.org. 6 Elevated levels of HbA1c suggest the need for more aggressive treatment of glycemia. The [place] [employer] recommends that a primary goal of therapy should be a HbA1c of <7% and that physicians should re-evaluate the treatment regimen in patients with HbA1c values consistently >8%. 7 Vitamin D deficiency has been defined by the [place] [employer] and an Endocrine Society practice guideline as a level of serum 25-OH vitamin D less than 20 ng/mL (1,2). The Endocrine Society went on to further define vitamin D insufficiency as a level between 21 and 29 ng/mL (2). 1. IOM ([place] [employer]). 2010. Dietary reference intakes for calcium and D. [place]: The National Academies Press. 2. Max MF, Mk NC, Nacho JASSO, et al. Evaluation, treatment, and prevention of vitamin D deficiency: an Endocrine Society clinical practice guideline. JCEM. 2010; 96(7):1911-30. Performed at: - [facility] [address] [id number] Pipe Stress Engineer: Karyn Marrero MD, Phone: [phone] Reference Guidelines*: Desirable: ........... < 200 mg/dL Borderline High: ..... 200-239 mg/dL High: ................ >=240 mg/dL * The National Cholesterol Education Program (NCEP) 9 Reference Guidelines*: Normal: ............. < 150 mg/dL Borderline High: .... 150-199 mg/dL High: ............... 200-499 mg/dL Very High: .......... > 500 mg/dL * Source: National Cholesterol Education Program (NCEP) 10 Reference Guidelines*: Low HDL: ..... < 40 mg/dL Normal: ..... 40-60 mg/dL Desirable: ... > 60 mg/dL *The National Cholesterol Education Program(NCEP) 11 (LDL CANNOT BE CALCULATED FOR TRIGS >400 mg/dL) 12 Reference Guidelines*: Desirable: ........... < 200 mg/dL Borderline High: ..... 200-239 mg/dL High: ................ >=240 mg/dL * The National Cholesterol Education Program (NCEP) 13 Reference Guidelines*: Normal: ............. < 150 mg/dL Borderline High: .... 150-199 mg/dL High: ............... 200-499 mg/dL Very High: .......... > 500 mg/dL * Source: National Cholesterol Education Program (NCEP) 14 Reference Guidelines*: Low HDL: ..... < 40 mg/dL Normal: ..... 40-60 mg/dL Desirable: ... > 60 mg/dL *The National Cholesterol Education Program(NCEP) 15 Reference Guidelines*: Optimal:........... <100 mg/dL Near Optimal....... 100-129 mg/dL Borderline High.... 130-159 mg/dL High............... 160-189 mg/dL Very High.......... >=190 mg/dL * Source: National Cholesterol Education Program (NCEP) 16 Note: Persistent reduction for 3 months or more in an eGFR <60 mL/min/1.73 m2 defines CKD. Patients with eGFR values >/=60 mL/min/1.73 m2 may also have CKD if evidence of persistent proteinuria is present. The original MDRD equation for estimated GFR is not valid for patients less than 18 years of age. Additional information may be found at www.kdoqi.org. 17 Elevated levels of HbA1c suggest the need for more aggressive treatment of glycemia. The [place] [employer] recommends that a primary goal of therapy should be a HbA1c of <7% and that physicians should re-evaluate the treatment regimen in patients with HbA1c values consistently >8%. 18 E11.42 19 Note: Persistent reduction for 3 months or more in an eGFR <60 mL/min/1.73 m2 defines CKD. Patients with eGFR values >/=60 mL/min/1.73 m2 may also have CKD if evidence of persistent proteinuria is present. The original MDRD equation for estimated GFR is not valid for patients less than 18 years of age. Additional information may be found at www.kdoqi.org. 20 Elevated levels of HbA1c suggest the need for more aggressive treatment of glycemia. The [place] [employer] recommends that a primary goal of therapy should be a HbA1c of <7% and that physicians should re-evaluate the treatment regimen in patients with HbA1c values consistently >8%. 21 Reference Guidelines*: Desirable: ........... < 200 mg/dL Borderline High: ..... 200-239 mg/dL High: ................ >=240 mg/dL * The National Cholesterol Education Program (NCEP) 22 Reference Guidelines*: Normal: ............. < 150 mg/dL Borderline High: .... 150-199 mg/dL High: ............... 200-499 mg/dL Very High: .......... > 500 mg/dL * Source: National Cholesterol Education Program (NCEP) 23 Reference Guidelines*: Low HDL: ..... < 40 mg/dL Normal: ..... 40-60 mg/dL Desirable: ... > 60 mg/dL *The National Cholesterol Education Program(NCEP) 24 Reference Guidelines*: Optimal:........... <100 mg/dL Near Optimal....... 100-129 mg/dL Borderline High.... 130-159 mg/dL High............... 160-189 mg/dL Very High.......... >=190 mg/dL * Source: National Cholesterol Education Program (NCEP) 25 E11.9,E78.5 26 Elevated levels of HbA1c suggest the need for more aggressive treatment of glycemia. The [place] [employer] recommends that a primary goal of therapy should be a HbA1c of <7% and that physicians should re-evaluate the treatment regimen in patients with HbA1c values consistently >8%. 27 Note: Persistent reduction for 3 months or more in an eGFR <60 mL/min/1.73 m2 defines CKD. Patients with eGFR values >/=60 mL/min/1.73 m2 may also have CKD if evidence of persistent proteinuria is present. The original MDRD equation for estimated GFR is not valid for patients less than 18 years of age. Additional information may be found at www.kdoqi.org. 28 Reference Guidelines*: Desirable: ........... < 200 mg/dL Borderline High: ..... 200-239 mg/dL High: ................ >=240 mg/dL * The National Cholesterol Education Program (NCEP) 29 Reference Guidelines*: Normal: ............. < 150 mg/dL Borderline High: .... 150-199 mg/dL High: ............... 200-499 mg/dL Very High: .......... > 500 mg/dL * Source: National Cholesterol Education Program (NCEP) 30 Reference Guidelines*: Low HDL: ..... < 40 mg/dL Normal: ..... 40-60 mg/dL Desirable: ... > 60 mg/dL *The National Cholesterol Education Program(NCEP) 31 Reference Guidelines*: Optimal:........... <100 mg/dL Near Optimal....... 100-129 mg/dL Borderline High.... 130-159 mg/dL High............... 160-189 mg/dL Very High.......... >=190 mg/dL * Source: National Cholesterol Education Program (NCEP) 32 9;30 [facility] [place] [id number] 33 Note: Persistent reduction for 3 months or more in an eGFR <60 mL/min/1.73 m2 defines CKD. Patients with eGFR values >/=60 mL/min/1.73 m2 may also have CKD if evidence of persistent proteinuria is present. The original MDRD equation for estimated GFR is not valid for patients less than 18 years of age. Additional information may be found at www.[email or web address]. 34 Is patient on heparin protocol? N Is patient on anticoagulants? Unknown 35 THERAPEUTIC INR RANGE: 2.0 - 3.0 DVT, Pulmonary embolus, prophylaxis against venous thrombosis or systemic embolization in high risk patients. 2.5 - 3.5 Mechanical heart valves 36 E11.42,E78.4 37 Note: Persistent reduction for 3 months or more in an eGFR <60 mL/min/1.73 m2 defines CKD. Patients with eGFR values >/=60 mL/min/1.73 m2 may also have CKD if evidence of persistent proteinuria is present. The original MDRD equation for estimated GFR is not valid for patients less than 18 years of age. Additional information may be found at www.kdoqi.org. 38 Elevated levels of HbA1c suggest the need for more aggressive treatment of glycemia. The [place] [employer] recommends that a primary goal of therapy should be a HbA1c of <7% and that physicians should re-evaluate the treatment regimen in patients with HbA1c values consistently >8%. 39 Reference Guidelines*: Desirable: ........... < 200 mg/dL Borderline High: ..... 200-239 mg/dL High: ................ >=240 mg/dL * The National Cholesterol Education Program (NCEP) 40 Reference Guidelines*: Normal: ............. < 150 mg/dL Borderline High: .... 150-199 mg/dL High: ............... 200-499 mg/dL Very High: .......... > 500 mg/dL * Source: National Cholesterol Education Program (NCEP) 41 Reference Guidelines*: Low HDL: ..... < 40 mg/dL Normal: ..... 40-60 mg/dL Desirable: ... > 60 mg/dL *The National Cholesterol Education Program(NCEP) 42 Reference Guidelines*: Optimal:........... <100 mg/dL Near Optimal....... 100-129 mg/dL Borderline High.... 130-159 mg/dL High............... 160-189 mg/dL Very High.......... >=190 mg/dL * Source: National Cholesterol Education Program (NCEP) 43 K76.0 44 Reference Guidelines*: Normal: ............. < 150 mg/dL Borderline High: .... 150-199 mg/dL High: ............... 200-499 mg/dL Very High: .......... > 500 mg/dL * Source: National Cholesterol Education Program (NCEP) 45 INFCE Result Units: s/co ratio Negative: < 0.8 Indeterminate: 0.8 - 0.9 Positive: > 0.9 The CDC recommends that a positive HCV antibody result be followed up with a HCV Nucleic Acid Amplification test (548548). Performed at: [address] [id number] Pipe Stress Engineer: Karyn Marrero MD, Phone: [phone] Performed at: [address] [id number] Pipe Stress Engineer: Rigo Cabezas MD, Phone: [phone] Performed at: [address] [id number] Pipe Stress Engineer: Karyn Marrero MD, Phone: [phone] F1 - Portal fibrosis 48 S3 - Marked or Severe Steatosis 49 N1 - Borderline or probable RAMIREZ 50 Quantitative results of 10 biochemicals in combination [...] identifying RAMIREZ and a specificity of 50%(3). 51 <0.21=Stage F0 - No fibrosis 0.21 - 0.27=Stage F0 - F1 0.27 - 0.31=Stage F1 - Portal fibrosis 0.31 - 0.48=Stage F1 - F2 0.48 - 0.58=Stage F2 - Bridging fibrosis with few septa 0.58 - 0.72=Stage F3 - Bridging fibrosis with many septa 0.72 - 0.74=Stage F3 - F4 >0.74=Stage F4 - Cirrhosis 52 < 0.30=S0 - No Steatosis 0.30 to 0.38=S0 - S1 0.38 to 0.48=S1 - Minimal Steatosis 0.48 to 0.57=S1 - S2 0.57 to 0.67=S2 - Moderate Steatosis 0.67 to 0.69=S2 - S3 > 0.69=S3 - Marked or Severe Steatosis 53 0.25=N0 - Not RAMIREZ 0.50=N1 - Borderline or probable RAMIREZ 0.75=N2 - RAMIREZ 54 RAMIREZ FibroSure is recommended for patients with suspected non-alcoholic fatty liver disease. It is not recommended for patients with other liver diseases. It is also not recommended in patients with Gilbert Disease, acute hemolysis, acute viral hepatitis, drug induced hepatitis, genetic liver disease, autoimmune hepatitis and/or extra- hepatic cholestasis. Any of these clinical situations may lead to inaccurate quantitative predictions of fibrosis. 55 This test was developed and its performance characteristics determined by [facility]. It has not been cleared or approved by the Food and Drug Administration. The FDA has determined that such clearance or approval is not necessary. For questions regarding this report please contact customer service at . References: 1. Humberto Min et al. Diagnostic Value of Biochemical Markers (FibroTest) for the prediction of Liver Fibrosis in patients with Non-Alcoholic Fatty Liver Disease. BMC Gastroenterology 2006; 6:6. 2. Batsheva Almonte et al. The Diagnostic Value of Biomarkers (Steato Test) for the Prediction of Liver Steatosis. Comparative Hepatol. 2005; 4:10. 3. Yoryd Almonte, Sheryl Paul, et al. Diagnostic value of biochemical markers (RAMIREZ TEST) for the prediction of non alcohol steato hepatitis in patients with non- alcoholic fatty liver disease. BMC Gastroenterology 2006; 6:34 doi:[id number]. 56 Quantitative results of 10 biochemicals in combination [...] identifying Ramirez and a specificity of 50%(3). 57 <0.21=Stage F0 - No fibrosis 0.21 - 0.27=Stage F0 - F1 0.27 - 0.31=Stage F1 - Portal fibrosis 0.31 - 0.48=Stage F1 - F2 0.48 - 0.58=Stage F2 - Bridging fibrosis with few septa 0.58 - 0.72=Stage F3 - Bridging fibrosis with many septa 0.72 - 0.74=Stage F3 - F4 >0.74=- Cirrhosis 58 < 0.30=S0 - No Steatosis 0.30 to 0.38=S0 - S1 0.38 to 0.48=S1 - Minimal Steatosis 0.48 to 0.57=S1 - S2 0.57 to 0.67=S2 - Moderate Steatosis 0.67 to 0.69=S2 - S3 > 0.69=S3 - Marked or Severe Steatosis 59 0.25=N0 - Not Ramirez 0.50=N1 - Borderline or probable Ramirez 0.75=N2 - Ramirez 60 Ramirez FibroSure is recommended for patients with suspected non-alcoholic fatty liver disease. It is not recommended for patients with other liver diseases. It is also not recommended in patients with Gilbert Disease, acute hemolysis, acute viral hepatitis, drug induced hepatitis, genetic liver disease, autoimmune hepatitis and/or extra- hepatic cholestasis. Any of these clinical situations may lead to inaccurate quantitative predictions of fibrosis. 61 E11.42 62 Valid ratio could not be calculated due to non-numeric result. 63 E11.42,E78.4 64 Note: Persistent reduction for 3 months or more in an eGFR <60 mL/min/1.73 m2 defines CKD. Patients with eGFR values >/=60 mL/min/1.73 m2 may also have CKD if evidence of persistent proteinuria is present. The original MDRD equation for estimated GFR is not valid for patients less than 18 years of age. Additional information may be found at www.[email or web address]. 65 Reference Guidelines*: Desirable: ........... < 200 mg/dL Borderline High: ..... 200-239 mg/dL High: ................ >=240 mg/dL * The National Cholesterol Education Program (NCEP) 66 Reference Guidelines*: Normal: ............. < 150 mg/dL Borderline High: .... 150-199 mg/dL High: ............... 200-499 mg/dL Very High: .......... > 500 mg/dL * Source: National Cholesterol Education Program (NCEP) 67 Reference Guidelines*: Low HDL: ..... < 40 mg/dL Normal: ..... 40-60 mg/dL Desirable: ... > 60 mg/dL *The National Cholesterol Education Program(NCEP) 68 Reference Guidelines*: Optimal:........... <100 mg/dL Near Optimal....... 100-129 mg/dL Borderline High.... 130-159 mg/dL High............... 160-189 mg/dL Very High.......... >=190 mg/dL * Source: National Cholesterol Education Program (NCEP) 69 Elevated levels of HbA1c suggest the need for more aggressive treatment of glycemia. The [place] [employer] recommends that a primary goal of therapy should be a HbA1c of <7% and that physicians should re-evaluate the treatment regimen in patients with HbA1c values consistently >8%. 70 E78.4,E11.42,I73.9,I25.10 71 Note: Persistent reduction for 3 months or more in an eGFR <60 mL/min/1.73 m2 defines CKD. Patients with eGFR values >/=60 mL/min/1.73 m2 may also have CKD if evidence of persistent proteinuria is present. The original MDRD equation for estimated GFR is not valid for patients less than 18 years of age. Additional information may be found at www.[email or web address]. 72 Reference Guidelines*: Desirable: ........... < 200 mg/dL Borderline High: ..... 200-239 mg/dL High: ................ >=240 mg/dL * The National Cholesterol Education Program (NCEP) 73 Reference Guidelines*: Normal: ............. < 150 mg/dL Borderline High: .... 150-199 mg/dL High: ............... 200-499 mg/dL Very High: .......... > 500 mg/dL * Source: National Cholesterol Education Program (NCEP) 74 Reference Guidelines*: Low HDL: ..... < 40 mg/dL Normal: ..... 40-60 mg/dL Desirable: ... > 60 mg/dL *The National Cholesterol Education Program(NCEP) 75 Reference Guidelines*: Optimal:........... <100 mg/dL Near Optimal....... 100-129 mg/dL Borderline High.... 130-159 mg/dL High............... 160-189 mg/dL Very High.......... >=190 mg/dL * Source: National Cholesterol Education Program (NCEP) 76 Elevated levels of HbA1c suggest the need for more aggressive treatment of glycemia. The [place] [employer] recommends that a primary goal of therapy should be a HbA1c of <7% and that physicians should re-evaluate the treatment regimen in patients with HbA1c values consistently >8%. 77 E78.4 78 Note: Persistent reduction for 3 months or more in an eGFR <60 mL/min/1.73 m2 defines CKD. Patients with eGFR values >/=60 mL/min/1.73 m2 may also have CKD if evidence of persistent proteinuria is present. The original MDRD equation for estimated GFR is not valid for patients less than 18 years of age. Additional information may be found at www.[email or web address]. 79 Elevated levels of HbA1c suggest the need for more aggressive treatment of glycemia. The [place] [employer] recommends that a primary goal of therapy should be a HbA1c of <7% and that physicians should re-evaluate the treatment regimen in patients with HbA1c values consistently >8%. 80 Reference Guidelines*: Desirable: ........... < 200 [...] Source: National Cholesterol Education Program (NCEP) 84 Note: Persistent reduction for 3 months or more in an eGFR <60 mL/min/1.73 m2 defines CKD. Patients with eGFR values >/=60 mL/min/1.73 m2 may also have CKD if evidence of persistent proteinuria is present. The original MDRD equation for estimated GFR is not valid for patients less than 18 years of age. Additional information may be found at www.[email or web address]. 85 Note: Persistent reduction for 3 months or more in an eGFR <60 mL/min/1.73 m2 defines CKD. Patients with eGFR values >/=60 mL/min/1.73 m2 may also have CKD if evidence of persistent proteinuria is present. The original MDRD equation for estimated GFR is not valid for patients less than 18 years of age. Additional information may be found at www.[email or web address]. 86 Reference Guidelines*: Desirable: ........... < 200 mg/dL Borderline High: ..... 200-239 mg/dL High: ................ >=240 mg/dL * The National Cholesterol Education Program (NCEP) 87 Reference Guidelines*: Normal: ............. < 150 mg/dL Borderline High: .... 150-199 mg/dL High: ............... 200-499 mg/dL Very High: .......... > 500 mg/dL * Source: National Cholesterol Education Program (NCEP) 88 Reference Guidelines*: Low HDL: ..... < 40 mg/dL Normal: ..... 40-60 mg/dL Desirable: ... > 60 mg/dL *The National Cholesterol Education Program(NCEP) 89 Reference Guidelines*: Optimal:........... <100 mg/dL Near Optimal....... 100-129 mg/dL Borderline High.... 130-159 mg/dL High............... 160-189 mg/dL Very High.......... >=190 mg/dL * Source: National Cholesterol Education Program (NCEP) 90 Note: Persistent reduction for 3 months or more in an eGFR <60 mL/min/1.73 m2 defines CKD. Patients with eGFR values >/=60 mL/min/1.73 m2 may also have CKD if evidence of persistent proteinuria is present. The original MDRD equation for estimated GFR is not valid for patients less than 18 years of age. Additional information may be found at www.[email or web address]. 91 07/31/14 LAB.SOTO @ [facility] SHARE ALL RESULTES 92 Elevated levels of HbA1c suggest the need for more aggressive treatment of glycemia. The [place] [employer] recommends that a primary goal of therapy should be a HbA1c of <7% and that physicians should re-evaluate the treatment regimen in patients with HbA1c values consistently >8%. 93 Test not performed (LDL CANNOT BE CALCULATED FOR TRIGS >400 mg/dL) 94 Note: Persistent reduction for 3 months or more in an eGFR <60 mL/min/1.73 m2 defines CKD. Patients with eGFR values >/=60 mL/min/1.73 m2 may also have CKD if evidence of persistent proteinuria is present. The original MDRD equation for estimated GFR is not valid for patients less than 18 years of age. Additional information may be found at www.[email or web address]. 95 A1c value between 5.7% and 6.4% is considered at increased risk for diabetes. A1c value greater than 6.5 % is considered essentially diagnostic for Type II diabetes. Current guidelines recommend a treatment goal of <7% for diabetic patients. This method will measure glycosylated hemoglobin variants, HbS, HbG, HbH, HbWayne, HbC, HbE, etc. Other hemoglobin- opathies may give incorrect results with this test. 96 THIS ASSAY IS NOT INTENDED A CANCER SCREENING TEST The concentration of PSA in a given specimen, determined with assays from different manufacturers, can vary due to differences in assay methods and reagent specificity. Values obtained from different assay methods cannot be used interchangeably. 97 Test not performed (LDL CANNOT BE CALCULATED FOR TRIGS >400 mg/dL) 98 Note: Persistent reduction for 3 months or more in an eGFR <60 mL/min/1.73 m2 defines CKD. Patients with eGFR values >/=60 mL/min/1.73 m2 may also have CKD if evidence of persistent proteinuria is present. The original MDRD equation for estimated GFR is not valid for patients less than 18 years of age. Additional information may be found at www.[email or web address]. 99 THIS ASSAY IS NOT INTENDED A CANCER SCREENING TEST The concentration of PSA in a given specimen, determined with assays from different manufacturers, can vary due to differences in assay methods and reagent specificity. Values obtained from different assay methods cannot be used interchangeably. 100 THIS ASSAY IS NOT INTENDED A CANCER SCREENING TEST The concentration of PSA in a given specimen, determined with assays from different manufacturers, can vary due to differences in assay methods and reagent specificity. Values obtained from different assay methods cannot be used interchangeably. Procedures Date Code Description Status 10/12/2018 [id number] Diabetic Foot Exam Completed 10/11/2018 49030 Debridement Nails Any Method 6 Or More Completed 08/06/2018 22353 Echocardiogram Complete Completed 11/05/2017 21784 Laparoscopy Surgical Repair Incisional Hernia Completed 10/15/2017 38505 Colonoscopy With Biopsy Completed 10/15/2017 06304 EGD With Biopsy Completed 10/09/2017 41617 Eye Exam New Patient Comprehensive Completed 09/21/2017 [id number] Colonoscopy Completed 08/20/2017 44960 EKG-Tracing And Report Completed 03/30/2017 64352 Bronchospasm Provocation Evaluation Multi Spirometric Completed Determinati 03/30/2017 41320 Spirometry Completed 01/13/2017 29659 Stress Test Interpre And Report Only Completed 01/13/2017 95889 Stress Test Physician Super Only Completed 01/13/2017 52912 Myocardial Imaging Tomographic Multiple Study AT Rest Completed Or Stress 01/09/2017 99677 EKG-Tracing And Report Completed 10/01/2016 75802 EKG-Tracing And Report Completed 04/14/2016 24371 Nerve Conduction 5-6 Studies Completed 04/14/2016 90499 Needle Electromyography Complete, Five Or More Muscles Completed Studied 11/22/2015 61737 EKG-Tracing And Report Completed 07/04/2015 46182 Bronchospasm Provocation Evaluation Multi Spirometric Completed Determinati 07/04/2015 54720 Bronchodilation Responsiveness Spirometry Pre/Post Completed Bronchodil Adm 07/04/2015 30599 Spirometry Completed 11/13/2014 41668 Myocardial Imaging Tomographic Multiple Study AT Rest Completed Or Stress 11/13/2014 58925 Stress Test Physician Super Only Completed 11/13/2014 16967 Stress Test Physician Super Only Completed 11/13/2014 31846 Stress Test Interpre And Report Only Completed 05/02/2014 23489 EKG-Tracing And Report Completed 10/04/2013 86083 Echocardiogram Complete Completed 03/13/2011 63442 EKG-Tracing And Report Completed 03/13/2011 59783 EKG-Tracing And Report Completed 03/12/2010 74795 EKG-Tracing And Report Completed 01/19/2009 06630 Echocardiogram Complete Completed 01/19/2009 73294 Stress Test Interpre And Report Only Completed 01/19/2009 22382 Stress Test Physician Super Only Completed 01/19/2009 35517 Ejection Fraction Completed 01/19/2009 37793 Myocardial Wall Motion Completed 01/19/2009 94654 Cardiolite Stress/Rest Spect Completed 01/17/2009 22487 EKG-Tracing And Report Completed Encounters Type Date Location Provider Dx Diagnosis Office Visit 12/14/2018 Primary Care Lana, E11.9 Type 2 diabetes 3:30p Office [place], [place], mellitus without [employer]TER[employer]OUNT EXECUTIVE-C, CNM complications E55.9 Vitamin D deficiency, unspecified [...] 2 diabetes Office [place], mellitus without [employer]OUNT EXECUTIVE-C, CNM complications R94.5 Abnormal results of liver function studies R06.2 Wheezing J06.9 Acute upper respiratory infection, unspecified I10 Essential (primary) hypertension E55.9 Vitamin D deficiency, unspecified R06.02 Shortness of breath R05 Cough Office Visit 11/03/2018 3:30p Primary Care Lana, E11.9 Type 2 diabetes Office [place] Kay[place], mellitus without [employer] ACCOUNT EXECUTIVE-C, CNM complications B35.3 Tinea pedis R94.5 Abnormal results of liver function studies I10 Essential (primary) hypertension E55.9 Vitamin D deficiency, unspecified E78.5 Hyperlipidemia, unspecified Office Visit 10/20/2018 3:30p Primary Care Lana, E11.9 Type 2 diabetes Office [place], mellitus without [employer]TERPR[employer] ACCOUNT EXECUTIVE-C, CNM complications B35.3 Tinea pedis I35.1 Nonrheumatic aortic (valve) insufficiency I25.10 Athscl heart disease of [place] coronary artery w/o ang pctrs I10 Essential (primary) hypertension I73.9 Peripheral vascular disease, unspecified E78.5 Hyperlipidemia, unspecified K21.0 Gastro-esophageal reflux disease with esophagitis R94.5 Abnormal results of liver function studies Office Visit 10/11/2018 1:00p Podiatry Office Edgar Morgan, E11.9 Type 2 diabetes DPM mellitus without complications B35.3 Tinea pedis Office Visit 08/23/2018 Cardiology Nola Miller I35.1 Nonrheumatic aortic 3:00p Office BRI Jeronimo, (valve) [employer] ACCOUNT EXECUTIVE insufficiency I25.10 Athscl heart disease of [place] coronary artery w/o ang pctrs I10 Essential (primary) hypertension I34.0 Nonrheumatic mitral (valve) insufficiency I73.9 Peripheral vascular disease, unspecified Office Visit 07/20/2018 3:00p Primary Care Kaykay Schwartz J44.9 Chronic Office [place], EN[employer] ACCOUNT EXECUTIVE-C, CNM obstructive pulmonary disease, unspecified E11.42 Type [...] counseling Office Visit 04/12/2018 3:30p Primary Care Fidel Schwartz4.5 Low back pain Office [place] Kay[place], [employer]OUNT EXECUTIVE-C, CNM Office Visit 04/02/2018 2:30p Primary Care Fidel Schwartz4.5 Low back pain Office [place], EN[employer] ACCOUNT EXECUTIVE-C, CNM Office Visit 02/17/2018 2:20p Cardiology Office Nola Miller I25.10 [facility]ani, BRI, disease of [facility] [place] coronary artery w/o ang pctrs E78.4 Other [...] unspecified Office Visit 10/14/2017 11:00a Surgical Office Rupa K43.2 Incisional hernia Kar, without ,FACS obstruction or gangrene Office Visit 10/05/2017 9:00a Surgical Office Rupa K43.2 Incisional hernia Kar, without MD,FACS obstruction or gangrene Office Visit 09/30/2017 8:45a [...] for 4:00p Office Garcia Olivier M.D., preprocedural [facility] cardiovascular examination I10 Essential (primary) hypertension I25.10 Athscl heart disease of [place] coronary artery w/o ang pctrs E78.5 Hyperlipidemia, unspecified I73.9 Peripheral vascular disease, unspecified Office Visit 06/19/2017 9:45a Primary Care Katelin Dickey, I10 Essential ( primary) Office MD hypertension Office Visit 06/15/2017 9:20a Primary Care Katelin Dickey, E11.42 Type 2 diabetes Office MD mellitus with diabetic polyneuropathy E78.4 Other hyperlipidemia I25.10 Athscl heart disease of [place] coronary artery w/o ang pctrs I10 Essential (primary) hypertension M51.16 Intervertebral disc disorders w radiculopathy, lumbar region Z23 Encounter for immunization Office Visit 03/17/2017 9:40a Primary Care Katelin Dickey, E11.42 Type 2 diabetes Office MD mellitus with diabetic polyneuropathy Z79.84 [facility] (current) use of oral hypoglycemic drugs E78.4 Other hyperlipidemia I73.9 Peripheral vascular disease, unspecified Office Visit 01/09/2017 Cardiology Nay Z01.810 Encounter for 1:40p Office Garcia Olivier M.D., preprocedural [facility] cardiovascular examination I73.9 Peripheral vascular disease, unspecified E78.4 Other hyperlipidemia I25.10 Athscl heart disease of [place] coronary artery w/o ang pctrs Office Visit [...] (primary) hypertension I25.10 Athscl heart disease of [place] coronary artery w/o ang pctrs B35.3 Tinea pedis Office Visit 10/01/2016 Cardiology Nola Miller Z01.810 Encounter for 3:00p Office Phani, BRI, preprocedural [facility] cardiovascular examination I25.10 Athscl heart disease of [place] coronary artery w/o ang pctrs I73.9 Peripheral vascular disease, unspecified E78.4 Other hyperlipidemia I10 Essential (primary) hypertension E11.42 Type 2 diabetes mellitus with diabetic polyneuropathy J44.9 Chronic obstructive pulmonary disease, unspecified Office Visit 07/08/2016 10:00a Primary Care Gregorio Ortega I25.10 Athscl heart Office E., DO disease of [place] coronary artery w/o ang pctrs E78.4 Other [...] disc 3:20p Office BRI Jeronimo, disorders w [employer] ACCOUNT EXECUTIVE radiculopathy, lumbar region I73.9 Peripheral vascular disease, unspecified I25.10 Athscl heart disease of [place] coronary artery w/o ang pctrs E78.4 Other hyperlipidemia I10 Essential (primary) hypertension Office Visit 12/25/2015 1:30p Pulmonology Cresencio Hair, J43.2 Centrilobular MD emphysema F17.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, cigarettes, in remission Office Visit 11/22/2015 3:20p Cardiology Garcia Tee I73.9 Peripheral Office Elo Olivier, FACC vascular disease, unspecified I25.10 Athscl heart disease of [place] coronary artery w/o ang pctrs E78.4 Other hyperlipidemia Office Visit 06/25/2015 2:00p Pulmonology Cresencio Hair, R06.02 Shortness of MD breath Office Visit 05/23/2015 1:00p Cardiology Office Nola Miller 786.05 Shortness Of Phani, Breath MSN, [employer]TER[employer] ACCOUNT EXECUTIVE 414.01 Coronary Atherosclerosis [place] 443.9 Peripheral Vascular Disease Unspec 401.1 Hypertension Benign 272.4 Hyperlipidemia Other Unspec Office Visit 11/09/2014 1:00p Cardiology Office Nola Miller 786.05 Shortness Of Phani, MSN, Breath [employer]OUNT EXECUTIVE 414.01 Coronary Atherosclerosis [place] 443.9 Peripheral Vascular Disease Unspec 401.1 Hypertension Benign 272.4 Hyperlipidemia Other Unspec Office Visit 05/02/2014 Cardiology Nay 414.01 Coronary 11:40a Office Garcia Olivier M.D., Atherosclerosis FACC [place] 443.9 Peripheral Vascular Disease Unspec 401.1 Hypertension Benign 302.72 Psychosexual Dysfunction W/ Inhibited Sexual Excitement Office Visit 10/11/2013 2:00p Cardiology Office Garcia Tee 424.0 Mitral Valve Elo Olivier, FACC Disorder 272.4 Hyperlipidemia Other Unspec 414.01 Coronary Atherosclerosis [place] 443.9 Peripheral Vascular Disease Unspec Office Visit 04/06/2013 Cardiology Nola Miller 272.4 Hyperlipidemia 1:40p Office BRI Jeronimo, Other Unspec [employer]TER[employer]OUNT EXECUTIVE 414.01 Coronary Atherosclerosis [place] 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 443.9 Peripheral Vascular Disease Unspec 401.1 Hypertension Benign 424.0 Mitral Valve Disorder 790.21 Impaired Fasting Glucose Office Visit 10/06/2012 Cardiology Garcia Tee 272.4 Hyperlipidemia 2:40p Office Elo Olivier, FACC Other Unspec 414.01 Coronary Atherosclerosis [place] 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 443.9 Peripheral Vascular Disease Unspec Office Visit 03/02/2012 Cardiology Nola Miller 414.01 Coronary 3:30p Office BRI Jeronimo, Atherosclerosis ENTER[employer]OUNT EXECUTIVE [place] 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 443.9 Peripheral Vascular Disease Unspec 272.4 Hyperlipidemia Other Unspec 401.1 Hypertension Benign 790.29 Other Abnormal Glucose Office Visit 09/01/2011 Cardiology Nay 414.01 Coronary 3:10p Office Garcia Olivier M.D., Atherosclerosis FACC [place] 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 443.9 Peripheral Vascular Disease Unspec 272.4 Hyperlipidemia Other Unspec 401.1 Hypertension Benign 441.9 Aneurysm Aortic W/O Rupture Unspec Site Office Visit 03/13/2011 Cardiology Nola Miller 414.01 Coronary 2:00p Office BRI Jeronimo, Atherosclerosis [employer]TERPR[employer] ACCOUNT EXECUTIVE [place] 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 443.9 Peripheral Vascular Disease Unspec 272.4 Hyperlipidemia Other Unspec 401.1 Hypertension Benign 441.9 Aneurysm Aortic W/O Rupture Unspec Site 790.29 Other Abnormal Glucose Office Visit 09/11/2010 Card[facility] Nay 414.01 Coronary 2:10p Office Garcia Olivier M.D., Atherosclerosis FACC [place] 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 272.4 Hyperlipidemia Other Unspec 401.1 Hypertension Benign Office Visit 03/12/2010 Cardiology Nay, 414.01 Coronary 12:40p Office Garcia Olivier M.D., Atherosclerosis FAC [place] 443.9 Peripheral Vascular Disease Unspec 401.1 Hypertension Benign 272.4 Hyperlipidemia Other Unspec 786.05 Shortness Of Breath 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 Office Visit 03/12/2009 Cardiology Nay 414.01 Coronary 2:00p Office Garcia Olivier M.D., Atherosclerosis FAC [place] 441.9 Aneurysm Aortic W/O Rupture Unspec Site Office Visit 01/26/2009 2:00p Cardiology Office Garcia Tee 786.05 Shortness Of Elo Olivier, FAC [place] 443.9 Peripheral Vascular Disease Unspec 401.1 Hypertension Benign 794.30 Cardiovascular Function Study Unspec Abnormal Office Visit 01/17/2009 Cardiology Garcia Tee 401.1 Hypertension 9:00a Office Elo Olivier, FACC [place] 786.05 Shortness Of Breath 272.4 Hyperlipidemia Other Unspec V72.81 Examination Preoperative Cardiovascular Plan of Treatment Future Appointment(s):02/08/2019 4:05 pm - Edgar Morgan DPM at Podiat[id number]/15/2019 3:45 pm - Cresencio Hair MD at [facility]/30/2019 3:00 pm - Kaykay Schwartz MS, [employer] ACCOUNT EXECUTIVE-C, CNM at [id number]/23/2019 3:20 pm - Nola Miller, BRI, ENTERPRISE ACCOUNT EXECUTIVE at Cardiology Office
[2019-01-29 07:35] VITALS: BP 137/64
--- NOTE | 2019-01-29 07:50 | UC ---
Throat Pain/Nasal Bakari HPI - HPI Summary HPI Summary: 58-year-old male 58-year-old male comes in with a chief complaint of sore throat for 3 days. Has rhinorrhea that started this morning. Sore throat is mild. It hurts more when he swallows it hurts less when he does not swallow. No fevers. No chest congestion or shortness of breath. - History of Current Complaint Chief Complaint: UCGeneralIllness Stated Complaint: THROAT COMPLAINT Time Seen by Provider: 01/29/19 07:44 Pain Intensity: 4 - Allergies/Home Medications Allergies/Adverse Reactions: Allergies Allergy/AdvReac Type Severity Reaction Status Date / Time liraglutide [From Victoza] Allergy Stomach Verified 01/29/19 07:35 Cramps Home Medications: Home Medications Amlodipine Besylate [Norvasc] 5 mg PO DAILY 01/29/19 [History Confirmed 01/29/19 ] Glimepiride 4 mg PO DAILY 01/29/19 [History Confirmed 01/29/19] Rosuvastatin (NF) [Crestor (NF)] 25 mg PO 1700 01/29/19 [History Confirmed 01/29] PMH/Surg Hx/FS Hx/Imm Hx Previously Healthy: Yes Endocrine History: Diabetes Cardiovascular History: Hypertension - Surgical History Surgical History: Yes Surgery Procedure, Year, and Place: aortic bypass x2. hernia - Family History Known Family History: Positive: Cardiac Disease, Hypertension, Diabetes - Social History Alcohol Use: None Substance Use Type: None Smoking Status (MU): Former Smoker When Did the Patient Quit Smoking/Using Tobacco: 2003 Review of Systems All Other Systems Reviewed And Are Negative: Yes Constitutional: Positive: Negative Skin: Positive: Negative Eyes: Positive: Negative ENT: Positive: Sore Throat, Nasal Discharge Respiratory: Positive: Negative Cardiovascular: Positive: Negative Gastrointestinal: Positive: Negative Motor: Positive: Negative Neurovascular: Positive: Negative Musculoskeletal: Positive: Negative Neurological: Positive: Negative Psychological: Positive: Negative Is Patient Immunocompromised?: No Physical Exam Triage Information Reviewed: Yes Appearance: Well-Appearing, No Pain Distress, Well-Nourished Vital Signs: Initial Vital Signs Temp 97.7 F 01/29/19 07:30 Pulse 58 01/29/19 07:30 Resp 16 01/29/19 07:30 BP 137/64 01/29/19 07:30 Pulse Ox 98 01/29/19 07:30 Vital Signs Reviewed: Yes Eye Exam: Normal Eyes: Positive: Conjunctiva Clear ENT: Positive: Pharyngeal erythema, Nasal congestion, TMs normal Neck exam: Normal Neck: Positive: Supple Respiratory: Positive: Lungs clear, Normal breath sounds, No respiratory distress Cardiovascular: Positive: RRR Musculoskeletal Exam: Normal Musculoskeletal: Positive: Strength Intact, ROM Intact Neurological Exam: Normal Neurological: Positive: Alert, Muscle Tone Normal Psychological Exam: Normal Psychological: Positive: Age Appropriate Behavior Skin Exam: Normal Throat Pain/Nasal Course/Dx - Course Course Of Treatment: DISCUSSED VIRAL VERSES BACTERIAL INFECTION AND THE ROLE OF ANTIBIOTICS. THE PATIENT PREFERS TO BE ON ANTIBIOTICS AT THIS TIME. - Differential Dx/Diagnosis Provider Diagnosis: Pharyngitis Discharge - Sign-Out/Discharge Documenting (check all that apply): Patient Departure All imaging exams completed and their final reports reviewed: No Studies - Discharge Plan Condition: Stable Disposition: HOME Prescriptions: Amoxicillin PO (*) [Amoxicillin 875 MG (*)] 875 mg PO BID #20 tab Patient Education Materials: Pharyngitis (ED) Referrals: Katelin Dickye MD [Primary Care Provider] - Additional Instructions: FOLLOW UP WITH YOUR DOCTOR IF NOT COMPLETELY IMPROVED. GET RECHECKED SOONER IF YOUR CONDITION WORSENS OR ANY QUESTIONS OR CONCERNS. - Billing Disposition and Condition Condition: STABLE Disposition: Home
== END 2019-01-29 07:58 | disposition home or self-care (01) ==
LOC: UCCORT 07:10
DX: J02.9 Acute pharyngitis, unspecified (principal); E11.9 Type 2 diabetes mellitus without complications; I10 Essential (primary) hypertension; Z87.891 Personal history of nicotine dependence; Z88.8 Allergy status to other drugs, medicaments and biological substances
CPT/HCPCS: 99202; G0463

== ENCOUNTER 2019-03-12 18:43 | Emergency (ER) | payer BC ==
--- OUTSIDE RECORDS SUMMARY | 2019-03-12 18:53 | XMS REPORT | Continuity of Care Document ---
:1960 External Reference #:[id number] Author Name Quirino Flores MD Address [address] [place] [address] Care Team Providers Name Role Phone Kaykay Schwartz, KAYLEIGH, CNM Care Team Information Upper Cutter Machine Unavailable Katelin Dickey MD Primary Care Physician Unavailable Payers Date Identification Numbers Payment Provider Subscriber Policy Number: [id number] [facility] Remington Gomez PayID: [id number] [address] [address] [place] [address] Expires: 2018 Policy Number: [id number] [employer] Remington Gomez PayID: [id number] [address] [place] [address] Problems Active Problems Provider Date Coronary arteriosclerosis Nola Miller, BRI, Onset: 03/02/2012 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 Carotid artery occlusion Nola Miller, BRI, Onset: 03/02/2012 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 Peripheral vascular disease Nola Miller, MSN, Onset: 03/02/2012 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 Hyperlipidemia Nola Miller, MSN, Onset: 03/02/2012 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 Benign essential hypertension Nola Miller, MSN, Onset: 03/02/2012 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 Mitral valve disorder Garcia Tee M.D., Onset: 10/11/2013 FACC Psychosexual dysfunction associated Garcia Tee M.D., 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 Smoking Status Reviewed: 03/03/19 Quit smoked 1.5 ppd for 30 yrs. [...] mouth twice a MD Tablets day Ipratropium [place] use 2 sprays in 15ml J06.9 Keli, Katelin, 11/30/2018 0.06% each nostril MD Solution twice a day Benzonatate take one capsule 30caps R05 Keli, Katelin, 11/30/2018 200mg every 8 hours as MD Capsules needed Ergocalciferol take one a week 16caps E55.9 Keli, Katelin, 11/03/2018 [id number] MD Capsules Clopidogrel Bisulfate Take 1 Tablet By 30tabs Nay, 10/28/2018 Mouth Once Daily Garcia Olivier M.D., 75mg Tablets [facility] Proair Respiclick Take one or two 1units Gag, 07/21/2018 puffs every 4-6 Kaykay, MS, 108(90Base) mcg/Act hours as needed 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-C, CNM Aerosol for SOB Lancets Ultra Thin 30G Check BS 3- 4 100units E11.9 Gagen, 07/20/2018 times a day Type Kaykay, MS, Thin 30G Misc 2 diabetes 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-C, CNM Freestyle Test fasting fs tid & 250units E11.42 Keli, Katelin, 04/20/2018 Strips prn MD Freestyle Test Fasting 250units E11.42 Keli, Katelin, 04/20/2018 Sugar Three MD Times A Day And as Needed Lancets Ultra Thin 30G use once daily 100units Keli Katelin, 04/19/2018 and as needed MD Thin 30G Misc for blood sugar testing Fenofibrate Take 1 Tablet By 90tabs E78.4 Nay, 02/19/2018 160mg Tablets Mouth Once Daily Garcia Olivier M.D., [facility] Glimepiride Take 3 Tablets 270tabs Krishan Dickeya, 02/04/2018 2mg Tablets By Mouth Once MD [...] 90tabs Nola Miller 81mg Tablets BRI Jeronimo, 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 Atenolol Take One Tablet 90tabs Nay, 50mg Tablets By Mouth Once Garcia Olivier M.D., Daily FACC [id number] Ethyl Quirino Mancia MD Esters 1gm Capsules History Medications Janumet Take 1 Tablet By 90tabs Katelin Dickey, 12/08/2018 - 50-1000mg Tablets Mouth Once Daily 01/05/2019 Metformin HCL take one tablet 60tabs Katelin Dickey, 12/07/2018 - 1000mg by mouth twice a 12/08/2018 Tablets day Azithromycin take 2 tablets [...] Kaykay, 01/05/2019 Pen-Inject then after one MS, 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-C, CNM week increase to 1.2mg once daily [...] Kaykay, Unknown four times a day MS, 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-C, CNM pain, swelling, bruising Cyclobenzaprine HCL Take one tablet 30tabs M54.5 Gagen, 04/02/2018 - 10mg every 8 hours Kaykay, 04/12/2018 Tablets prn low back MS, 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-C, CNM pain Golytely drink half the 4000ml Z12Ras Del Valle MD 09/30/2017 - 236gm Solution evening before 10/05/2017 Rec and half the morning of the procedure (1 cup every 10') Dulcolax 4 tablets taken 4tabs [id number] Del Valle MD 09/30/2017 - 5mg Tablets DR a 8pm the day 10/05/2017 before the procedure Magnesium Citrate 1 bottle po x 296ml [id number] Johnathon Del Valle MD 09/30/2017 - one as [...] Dickey, 11/12/2016 - 100mg every night as Unknown Capsules needed Ciclopirox apply to affected 45gm Katelin Dickey, 11/12/2016 - 0.77% Gel area of bilateral MD Unknown toes twice daily for four weeks Medrol medrol dose pack 1units M51.16 Nola Miller 05/28/2016 - 4mg TBPK as on package BRI Jeronimo, Unknown 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 Ventolin HFA take 1-2 puffs QS J43.2 [...] 30caps Nola Miller 10/01/2010 - 20mg BRI eJronimo, Unknown Capsules DR SEBASTIEN Aciphex 1 po qd 30tabs Nay, 09/11/2010 - 20mg Tablets Garcia Olivier M.D., 10/01/2010 FACAlida Tricor Take One Tablet 30tabs 272.4 [...] 10mg Tablets By Mouth Every M., MDwightDDwight, [facility] 12/21/2012 Day Glimepiride 1 po qd 180tabs Unknown - 4mg 06/15/2017 Tablets Fenofibrate take one tablet 90tabs E78.4 Garcia Tee - 145mg by mouth every M., M.D., [facility] 02/19/2018 Tablets day Tums chew and swallow Unknown - 500mg Chewtabs 1 tablet by 01/15/2018 mouth 3 times per day prn Hydrocodone-Acetamin as needed Unknown - ophen 12/07/2017 5-325mg Tablets Immunizations CPT Code Status Date Vaccine Reaction Lot # 64049 Given 07/20/2018 Influenza Virus Vaccine, Quadrivalent, 36 none [id number]+, .5ML 22366 Given 06/15/2017 Influenza Virus Vaccine Quadrivalent Iiv4 [id number] [address] Given 07/08/2016 Influenza Virus Vaccine Split Virus Use [id number] For Individual 3Yr Older [id number] Given 07/04/2015 Influenza Vaccine (Fluzone) Age 3 And Older [id number] Given 08/04/2013 Pneumovax Injection Vital Signs Date Vital Result Comment 02/23/2019 3:37pm BP Systolic Sitting Right Arm 124 mmHg BP Diastolic Sitting Right Arm 76 mmHg Heart Rate 67 /min Respiratory Rate 17 /min Height 69 inches 5'9" Weight 215.00 lb BMI (Body Mass Index) 31.7 kg/m2 BSA (Body Surface Area) 2.13 m2 [facility] body weight in kilograms 73 kg O2 % BldC Oximetry 94 % 02/08/2019 4:18pm BP Systolic 153 mmHg BP Diastolic 77 mmHg Body Temperature 98.7 F Heart Rate 63 /min Height 69 inches 5'9" Weight 218.00 lb BMI (Body Mass Index) 32.2 kg/m2 BSA (Body Surface Area) 2.14 m2 [facility] body weight in kilograms 73 kg O2 % BldC Oximetry 97 % 01/18/2019 2:54pm BP Systolic Sitting Right Arm 126 mmHg BP Diastolic Sitting Right Arm 70 mmHg Body Temperature 98.4 F Heart Rate 68 /min Respiratory Rate 20 /min Height 69 inches 5'9" Weight 217.00 lb BMI (Body Mass Index) 32.0 kg/m2 BSA (Body Surface Area) 2.14 m2 [facility] body weight in kilograms 73 kg O2 % BldC Oximetry 96 % ra 01/13/2019 4:30pm BP Systolic Sitting Left Arm 139 mmHg BP Diastolic Sitting Left Arm 66 mmHg Heart Rate 68 /min Respiratory Rate 14 /min Height 69 inches 5'9" Weight 216.38 lb BMI (Body Mass Index) 31.9 kg/m2 BSA (Body Surface Area) 2.14 m2 [facility] body weight in kilograms 73 kg O2 % BldC Oximetry 94 % 12/14/2018 3:22pm BP Systolic Sitting Left Arm 132 mmHg BP Diastolic Sitting Left Arm 68 mmHg Body Temperature 98.0 F Heart Rate 75 /min reg Respiratory Rate 24 /min Height 69 inches 5'9" Weight 219.00 lb BMI (Body Mass Index) 32.3 kg/m2 BSA (Body Surface Area) 2.15 m2 [facility] body weight in kilograms 73 kg O2 % BldC Oximetry 95 % ra 12/08/2018 2:55pm BP Systolic Sitting Left Arm 136 mmHg BP Diastolic Sitting Left Arm 51 mmHg Heart Rate 72 /min Respiratory Rate 16 /min Height 69 inches 5'9" Weight 218.00 lb BMI (Body Mass Index) 32.2 kg/m2 BSA (Body Surface Area) 2.14 m2 [facility] body weight in kilograms 73 kg O2 [...] kg/m2 BSA (Body Surface Area) 2.15 m2 [facility] body weight in kilograms 73 kg O2 % BldC Oximetry 96 % ra 11/03/2018 3:15pm BP Systolic Sitting Right Arm 144 mmHg BP Diastolic Sitting Right Arm 82 mmHg Body Temperature 99.0 F Heart Rate 65 /min Respiratory Rate 18 /min Height 69 inches 5'9" Weight 221.00 lb BMI (Body Mass Index) 32.6 kg/m2 BSA (Body Surface Area) 2.16 m2 [facility] body weight in kilograms 73 kg O2 % BldC Oximetry 96 % ra 10/20/2018 3:22pm BP Systolic Sitting Right Arm 126 mmHg BP Diastolic Sitting Right Arm 78 mmHg Body Temperature 99.8 F Heart Rate 64 /min Respiratory Rate 24 /min Height 69 inches 5'9" Weight 221.00 lb BMI (Body Mass Index) 32.6 kg/m2 BSA (Body Surface Area) 2.16 m2 [facility] body weight in kilograms 73 kg O2 % BldC Oximetry 96 % 10/11/2018 1:02pm BP Systolic 194 mmHg BP Diastolic 72 mmHg Body Temperature 98.8 F Heart Rate 60 /min Respiratory Rate 18 /min Height 69 inches 5'9" Weight 220.00 lb BMI (Body Mass Index) 32.5 kg/m2 BSA (Body Surface Area) 2.15 m2 [facility] body weight in kilograms 73 kg O2 % BldC Oximetry 95 % 08/23/2018 2:49pm BP Systolic Sitting Left Arm 148 mmHg BP Diastolic Sitting Left Arm 60 mmHg Heart Rate 82 /min Respiratory Rate 18 /min Height 69 inches 5'9" Weight 223.00 lb BMI (Body Mass Index) 32.9 kg/m2 BSA (Body Surface Area) 2.16 m2 [facility] body weight in kilograms 73 kg O2 % BldC Oximetry 93 % 07/20/2018 2:45pm BP Systolic 148 mmHg recheck 129/75 BP Diastolic 66 mmHg recheck 129/75 Body Temperature 96.9 F Heart Rate 64 /min Respiratory Rate 18 /min Height 69 inches 5'9" Weight 215.12 lb BMI (Body Mass Index) 31.8 kg/m2 BSA (Body Surface Area) 2.13 m2 [facility] body weight in kilograms 73 kg O2 % BldC Oximetry 96 % 07/01/2018 3:32pm BP Systolic Sitting Left Arm 144 mmHg BP Diastolic Sitting Left Arm 70 mmHg Heart Rate 64 /min Respiratory Rate 16 /min Height 69 inches 5'9" Weight 218.00 lb BMI (Body Mass Index) 32.2 kg/m2 BSA (Body Surface Area) 2.14 m2 [facility] body weight in kilograms 73 kg 06/03/2018 3:39pm BP Systolic Sitting Left Arm 140 mmHg BP Diastolic Sitting Left Arm 64 mmHg Heart Rate 70 /min Respiratory Rate 16 /min Height 69 inches 5'9" Weight 215.00 lb BMI (Body Mass Index) 31.7 kg/m2 BSA (Body Surface Area) 2.13 m2 [facility] body weight in kilograms 73 kg O2 [...] kg/m2 BSA (Body Surface Area) 2.14 m2 [facility] body weight in kilograms 73 kg O2 % BldC Oximetry 97 % Ra 04/12/2018 3:37pm BP Systolic Sitting Left Arm 127 mmHg BP Diastolic Sitting Left Arm 68 mmHg Body Temperature 99.0 F Heart Rate 78 /min Respiratory Rate 18 /min Height 69 inches 5'9" Weight 218.00 lb BMI (Body Mass Index) 32.2 kg/m2 BSA (Body Surface Area) 2.14 m2 [facility] body weight in kilograms 73 kg O2 % BldC Oximetry 94 % repeat 98% Ra 04/02/2018 2:26pm BP Systolic 169 mmHg BP Diastolic 70 mmHg Body Temperature 97.8 F Heart Rate 68 /min Respiratory Rate 18 /min Height 69 inches 5'9" Weight 217.50 lb BMI (Body Mass Index) 32.1 kg/m2 BSA (Body Surface Area) 2.14 m2 [facility] body weight in kilograms 73 kg O2 % BldC Oximetry 96 % 02/17/2018 2:29pm BP Systolic Sitting Left Arm 130 mmHg BP Diastolic Sitting Left Arm 58 mmHg Heart Rate 70 /min Respiratory Rate 18 /min Height 69 inches 5'9" Weight 216.00 lb BMI (Body Mass Index) 31.9 kg/m2 BSA (Body Surface Area) 2.13 m2 [facility] body weight in kilograms 73 kg 01/15/2018 2:13pm BP Systolic Sitting Right Arm 154 mmHg BP Diastolic Sitting Right Arm 72 mmHg Heart Rate 67 /min Respiratory Rate 16 /min Height 69 inches 5'9" Weight 218.00 lb BMI (Body Mass Index) 32.2 kg/m2 BSA (Body Surface Area) 2.14 m2 [facility] body weight in kilograms 73 kg 12/30/2017 10:30am BP Systolic Sitting Left Arm 160 mmHg BP Diastolic Sitting Left Arm 86 mmHg Heart Rate 60 /min Respiratory Rate 16 /min Height 69 inches 5'9" Weight 216.00 lb BMI (Body Mass Index) 31.9 kg/m2 BSA (Body Surface Area) 2.13 m2 [facility] body weight in kilograms 73 kg 12/21/2017 11:10am BP Systolic 142 mmHg BP Diastolic 80 mmHg Height 69 inches 5'9" Weight 215.00 lb BMI (Body Mass Index) 31.7 kg/m2 BSA (Body Surface Area) 2.13 m2 [facility] body weight in kilograms 73 kg 12/07/2017 10:50am BP Systolic 179 mmHg BP Diastolic 79 mmHg Heart Rate 70 /min Respiratory Rate 18 /min Height 69 inches 5'9" Weight 210.00 lb BMI (Body Mass Index) 31.0 kg/m2 BSA (Body Surface Area) 2.11 m2 [facility] body weight in kilograms 73 kg 11/16/2017 2:31pm BP Systolic 148 mmHg BP Diastolic 88 mmHg Height 69 inches 5'9" Weight 210.00 lb BMI (Body Mass Index) 31.0 kg/m2 BSA (Body Surface Area) 2.11 m2 [facility] body weight in kilograms 73 kg 10/22/2017 3:28pm BP Systolic Sitting Left Arm 171 mmHg BP Diastolic Sitting Left Arm 79 mmHg Body Temperature 98.3 F Heart Rate 64 /min Respiratory Rate 18 /min Height 69 inches 5'9" Weight 216.00 lb BMI (Body Mass Index) 31.9 kg/m2 BSA (Body Surface Area) 2.13 m2 [facility] body weight in kilograms 73 kg O2 % BldC Oximetry 97 % 10/16/2017 9:10am BP Systolic Sitting Left Arm 162 mmHg recheck 168/64 BP Diastolic Sitting Left Arm 71 mmHg recheck 168/64 Heart Rate 66 /min Respiratory Rate 16 /min Height 69 inches 5'9" Weight 212.00 lb BMI (Body Mass Index) 31.3 kg/m2 BSA (Body Surface Area) 2.12 m2 [facility] body weight in kilograms 73 kg 10/14/2017 10:48am BP Systolic 128 mmHg BP Diastolic 70 mmHg Height 69 inches 5'9" Weight 213.00 lb BMI (Body Mass Index) 31.5 kg/m2 BSA (Body Surface Area) 2.12 m2 [facility] body weight in kilograms 73 kg 10/05/2017 9:17am BP Systolic 142 mmHg BP Diastolic 80 mmHg Height 69 inches 5'9" Weight 213.00 lb BMI (Body Mass Index) 31.5 kg/m2 BSA (Body Surface Area) 2.12 m2 [facility] body weight in kilograms 73 kg 09/30/2017 8:50am BP Systolic Sitting Left Arm 160 mmHg BP Diastolic Sitting Left Arm 76 mmHg Heart Rate 66 /min Respiratory Rate 16 /min Height 69 inches 5'9" Weight 217.00 lb BMI (Body Mass Index) 32.0 kg/m2 BSA (Body Surface Area) 2.14 m2 [facility] body weight in kilograms 73 kg 09/11/2017 [...] kg/m2 BSA (Body Surface Area) 2.10 m2 [facility] body weight in kilograms 73 kg 03/17/2017 9:44am BP Systolic Sitting Right Arm 140 mmHg BP Diastolic Sitting Right Arm 80 mmHg Height 69 inches 5'9" Weight 201.00 lb BMI (Body Mass Index) 29.7 kg/m2 BSA (Body Surface Area) 2.07 m2 [facility] body weight in kilograms 73 kg 01/09/2017 [...] Test Result H/L Range Note CBC 01/18/2019 [facility] White Blood 4.8 K/uL N 3.4-10.5 1 W/Automated [address] [place] [address] [phone] Red Blood Count 4.29 M/uL N 4.20-5.80 [...] 33.0-73.0 Lymph % 34.2 % N 20.0-42.0 [place] % 11.8 % High 0.0-10.0 Eo% 4.1 % N 0.0-6.6 Bas% 0.6 % N 0.0-1.1 Immature Grans 0.0 % N 0.0-5.0 NRBC % 0.0 /100WBC < 10/ 100 WBC Neut# 2.38 K/uL N 1.8-7.0 Lymph # 1.65 K/uL N 1.0-4.0 [place] # 0.57 K/uL N 0.0-0.8 Eos # 0.20 K/uL N 0.0-0.5 Baso # 0.03 K/uL N 0.0-0.1 Immature Grans Absolute 0.00 K/uL NRBC # 0.00 K/uL Comprehensive Metabolic 01/18/2019 [facility] Glucose 99 mg/dL N 74-[address] [place] [address] [phone] BUN 16 mg/dL N 7-18 Creatinine 1.1 [...] Phosphatase 75 U/L N 45-117 Glycohemoglobin 01/18/2019 [facility] Glycohemoglobin 6.8 % High 4.2-6.[address] (A1c) [place] [address] [phone] eAG 148 mg/dL Laboratory test 01/18/2019 [facility] Vitamin 28.7 Low 30.0-100.0 [address] D,25-Hydroxy ng/[place] [address] [phone] LDL Cholesterol 01/18/2019 [facility] Cholesterol 112 <200 [address] mg/[place] [address] [phone] Triglycerides 257 mg/dL High <150 6 HDL Cholesterol 24 mg/dL Low >40 7 LDL-Cholesterol 37 mg/dL < 100 8 HIV Screen 4TH 10/30/2018 [facility] HIV Screen Non Non 9, 10 Gen Reflex [address] 4[address] [place] [address] Generation [phone] wRfx Hepatitis 10/30/2018 [facility] Hepatitis A Negative Negative Evaluation [address] Antibody IgM [place], [place] [id number] [phone] HBsAg Screen [Ref Lab] Negative Negative Hepatitis B Core IgM Negative Negative HCV Signal/Cutoff ratio 0.1 s/corat 0.0-0.9 11 Laboratory test 10/30/2018 [facility] Gamma Glutamyl 58 U/L N 5-[address] [place] [place] [address] [phone] Laboratory test 10/20/2018 [facility] Urine Creatinine 99 mg/dL finding [address] [place] [address] [phone] Urine Dipstick 10/20/2018 [facility] Ua Color yellow Yellow Ua Clarity clear Clear Ua Leuko negative Negative Ua Nitrite negative Negative Ua Urobilinogen negative Low 0.2 - 1.0 E.U./dL Ua Protein negative Negative Ua PH 6.0 Low 6.5-7.5 Ua Blood negative Negative Ua Specific [place] 1.025 1.010-1.030 Ua Ketones negative Negative Ua Bilirubin negative Negative Ua Glucose 1+ High Negative Comprehensive 10/20/2018 [facility] Glucose 174 mg/dL High 74-106 12 Metabolic Panel [address] [place] [address] [phone] BUN 20 mg/dL High 7-18 Creatinine 1.2 [...] Phosphatase 88 U/L N 45-117 Glycohemoglobin 10/20/2018 [facility] Glycohemoglobin 8.2 % High 4.2-6.3 [address] (A1c) [place] [address] [phone] eAG 189 mg/dL Laboratory 10/20/2018 [facility] Vitamin 8.7 Low 30.0-100.0 15 test finding [address] D,25-Hydroxy ng/[place] [address] [phone] CBC 10/20/2018 [facility] White Blood 5.6 K/uL N 3.4-10.5 W/Automated [address] [place] [address] [phone] Red Blood Count 4.72 M/uL N 4.20-5.80 [...] 33.0-73.0 Lymph % 29.8 % N 20.0-42.0 [place] % 9.3 % N 0.0-10.0 Eo% 1.6 % N 0.0-6.6 Bas% 0.4 % N 0.0-1.1 Neut# 3.31 K/uL N 1.8-7.0 Lymph # 1.67 K/uL N 1.0-4.0 [place] # 0.52 K/uL N 0.0-0.8 Eos # 0.09 K/uL N 0.0-0.5 Baso # 0.02 K/uL N 0.0-0.1 LDL Cholesterol Profile 10/20/2018 [facility] Cholesterol 123 mg/dL <200 16 [address] [place] [address] [phone] Triglycerides 466 mg/dL High <150 17 HDL Cholesterol 21 mg/dL Low >40 18 LDL-Cholesterol TNP mg/dL < 100 19 LDL Cholesterol Profile 07/20/2018 [facility] Cholesterol 81 mg/dL <200 20 [address] [place] [address] [phone] Triglycerides 204 mg/dL High <150 21 HDL Cholesterol 17 mg/dL Low >40 22 LDL-Cholesterol 23 mg/dL < 100 23 Basic Metabolic Panel 07/20/2018 [facility] Glucose 143 mg/dL High 74-106 [address] [place] [address] [phone] BUN 23 mg/dL High 7-18 Creatinine 1.2 mg/dL N 0.6-1.3 Glom Filtration Rate, Estimate >60 mL/min >60 If >60 mL/min >60 24 BUN/Creat 19.1 ratio Sodium 143 mmol/L N 136-145 Potassium 4.5 mmol/L N 3.5-5.1 Chloride 108 mmol/L High 98-107 Carbon Dioxide 29 mmol/L N 21-32 Anion Gap 6 mEq/L Low 8-16 Calcium 8.1 mg/dL Low 8.5-10.1 Glycohemoglobin 07/20/2018 [facility] Glycohemoglobin 6.8 % High 4.2-6.3 25 A1c [address] [facility] (A1c) [place] [address] [phone] eAG 148 mg/dL Comprehensive 04/09/2018 [facility] Glucose 204 mg/dL High 74-106 26 Metabolic Panel [address] [place] [address] [phone] BUN 17 mg/dL N 7-18 Creatinine 1.1 [...] Phosphatase 81 U/L N 45-117 Glycohemoglobin 04/09/2018 [facility] Glycohemoglobin 7.9 % High 4.2-6.3 28 A1c [address] [facility] (A1c) [place] [address] [phone] eAG 180 mg/dL LDL Cholesterol Profile 04/09/2018 [facility] Cholesterol 100 mg/dL <200 29 [address] [place] [address] [phone] Triglycerides 386 mg/dL High <150 30 HDL Cholesterol 21 mg/dL Low >40 31 LDL-Cholesterol 2 mg/dL < 100 32 Microalb/Creat 04/09/2018 [facility] Microalbumin,Urine 7.7 mg/L < 20.0 Ratio,Random [address] [place] [address] [phone] Microalbumin/Creatinine Ratio 16.7 ug/mgCrt < 30.0 Urine Creatinine Conc 46 mg/dL Urine Dipstick 01/15/2018 [facility] Ua Color yellow Yellow Ua Clarity clear Clear Ua Leuko n Negative Ua Nitrite n Negative Ua Urobilinogen .2 0.2 - 1.0 E.U./dL Ua Protein n Negative Ua PH 7 6.5-7.5 Ua Blood n Negative Ua Specific [place] 1.015 1.010-1.030 Ua Ketones n Negative Ua Bilirubin n Negative Ua Glucose n Negative Urine microalbumin 01/15/2018 N2N/CCD Import Urine microalbumin 6.1 < 20.0 measurement by measurement by detection limit detection limit <=20 mg/l (mass/volume) Urine creatinine 01/15/2018 N2N/CCD Import Urine creatinine 45 measurement measurement (mass/volume) (mass/volume) Urine 01/15/2018 N2N/CCD Import Urine 13.6 < 30.0 albumin/creatinine albumin/creatinine ratio with detection ratio with detection limi limit of 20mg/l or less Microalb/Creat 01/15/2018 [facility] Microalbumin,Urine 6.1 mg/L < 20.0 Ratio,Random [address] [place] [address] [phone] Microalbumin/Creatinine Ratio 13.6 ug/mgCrt < 30.0 Urine Creatinine Conc 45 mg/dL RDW RBC Auto-Rto 12/29/2017 N2N/CCD Import RDW RBC Auto-Rto 13.5 11.6- 15.8 Serum carbon 12/29/2017 N2N/CCD Import Serum carbon 31 21-32 dioxide measurement dioxide measurement Serum or plasma 12/29/2017 N2N/CCD Import Serum or plasma 3.5 3.4-5.0 albumin measurement albumin measurement (mass/volume) (mass/volume) Serum or plasma 12/29/2017 N2N/CCD Import Serum or plasma 83 45-117 alkaline alkaline phosphatase phosphatase measurement ( measurement (enzymatic activity/volume) Serum [...] measurement measurement (mass/vol (mass/volume) Serum or plasma 12/29/2017 N2N/CCD Import Serum or plasma 19 High 7-18 urea nitrogen urea nitrogen measurement measurement (mass/vo (mass/volume) Serum sodium 12/29/2017 N2N/CCD Import Serum sodium 139 136-145 measurement measurement LDL Cholesterol 12/29/2017 [facility] Cholesterol 107 <200 33, Profile [address] mg/dL [address] [place], [place] [address] [phone] Triglycerides 299 mg/dL High <150 35 HDL Cholesterol 22 mg/dL Low >40 36 LDL-Cholesterol 25 mg/dL < 100 37 Glycohemoglobin 12/29/2017 [facility] Glycohemoglobin 7.7 % High 4.2-6.3 [address] (A1c) [place], [place] [id number] [phone] eAG 174 mg/dL Comprehensive Metabolic 12/29/2017 [facility] Glucose 221 mg/dL High 74-[address] [place], [place] [id number] [phone] BUN 19 mg/dL High 7-18 Creatinine 1.2 [...] 12-78 Alkaline Phosphatase 83 U/L N 45-117 CBS W/Automated Diff 12/29/2017 [facility] White Blood 4.4 K/uL N 3.4-10.[address] Count [place], [place] [address] [phone] Red Blood Count 4.68 M/uL N 4.20-5.80 [...] 33.0-73.0 Lymph % 33.4 % N 20.0-42.0 [place] % 11.7 % High 0.0-10.0 Eo% 2.7 % N 0.0-6.6 Bas% 0.2 % N 0.0-1.1 Neut# 2.27 K/uL N 1.8-7.0 Lymph # 1.46 K/uL N 1.0-4.0 [place] # 0.51 K/uL N 0.0-0.8 Eos # [...] 0.2 0.0- 1.1 Bld Auto Bld Auto RDW RBC Auto 12/29/2017 N2N/CCD Import RDW RBC Auto 42.5 36-51 Potassium 12/29/2017 N2N/CCD Import Potassium 4.2 3.5-5.1 SerPl-sCnc SerPl-sCnc Neutrophils/leuk 12/29/2017 N2N/CCD Import Neutrophils/leuk 52.0 33.0- [...] 13.9 12.8- 17.0 measurement measurement (mass/volume) (mass/volume) Blood estimated 12/29/2017 N2N/CCD Import Blood estimated 174 average glucose average glucose determination by e determination by estimation from glycated hemoglobin (mass/volume) Blood erythrocytes 12/29/2017 N2N/CCD Import Blood erythrocytes 4.68 4.20-5.80 automated count automated count (number/volume) (number/volume) Capillary blood 11/05/2017 N2N/CCD Import Capillary blood 144 High 70- 110 glucose glucose measurement by measurement by glucometer glucometer (mass/volume) Basic Metabolic 10/30/2017 [facility] Glucose 202 High 74-106 [address] mg/[place] [address] [phone] BUN 20 mg/dL High 7-18 Creatinine 1.1 mg/dL N 0.6-1.3 Glom Filtration Rate, Estimate >60 mL/min >60 If >60 mL/min >60 41 BUN/Creat 18.1 ratio Sodium 139 mmol/L N 136-145 Potassium 4.4 mmol/L N 3.5-5.1 Chloride 105 mmol/L N 98-107 Carbon Dioxide 27 mmol/L N 21-32 Anion Gap 7 mEq/L Low 8-16 Calcium 9.0 mg/dL N 8.5-10.1 Liver Function Tests 10/30/2017 [facility] Total Protein 7.8 g/dL N 6.4-8.[address] [place] [address] [phone] Albumin 3.8 g/dL N 3.4-5.0 Globulin 4.0 g/dL N 1.9-4.3 Alb/Glob 1.0 ratio Bilirubin,Total 0.3 mg/dL N 0.2-1.0 Bilirubin,Direct < 0.1 mg/dL N 0.0-0.2 Bilirubin,Indirect 0.2 mg/dL N 0.0-0.9 Sgot/Ast 70 U/L High 15-37 SGPT/Alt 113 U/L High 12-78 Alkaline Phosphatase 73 U/L N 45-117 Laboratory test 10/30/2017 [facility] Act Partial 24.9 seconds N 23.4-35.0 [address] [place] [address] [phone] Protime 10/30/2017 [facility] Protime 12.8 seconds N 12.0-14.[address] [place] [address] [phone] Inr 1.0 N 0.9-1.1 43 CBC 10/30/2017 [facility] White Blood Count 5.2 K/uL N 3.4-10.[address] [place] [address] [phone] Red Blood Count 4.93 M/uL N 4.20-5.80 [...] bilirubin measurement (ma measurement (mass/volume) Comprehensive 10/12/2017 [facility] Glucose 185 High 74-106 44 Metabolic Panel [address] mg/[place] [address] [phone] BUN 17 mg/dL N 7-18 Creatinine 1.2 [...] Phosphatase 58 U/L N 45-117 Glycohemoglobin 10/12/2017 [facility] Glycohemoglobin 7.2 % High 4.2-6.3 46 A1c [address] (A1c) [place] [address] [phone] eAG 160 mg/dL Microalb/Creat 10/12/2017 [facility] Microalbumin,Urine 12.2 < 20.0 Ratio,Random [address] [facility] mg/[place] [address] [phone] Microalbumin/Creatinine Ratio 8.0 ug/mgCrt < 30.0 Urine Creatinine Conc 153 mg/dL LDL Cholesterol Profile 10/12/2017 [facility] Cholesterol 111 mg/dL <200 47 [address] [place] [address] [phone] Triglycerides 163 mg/dL High <150 48 HDL Cholesterol 25 mg/dL Low >40 49 LDL-Cholesterol 53 mg/dL < 100 50 Laboratory test 10/09/2017 [facility] Triglycerides 129 mg/dL <150 51, 52 finding [address] [place] [address] [phone] Hepatitis C Antibody < 0.1 s/corat 0.0-0.9 53 Ceruloplasmin 10/09/2017 [facility] Ceruloplasmin 24.0 mg/dL 16.0-31.0 54 [address] [place] [address] [phone] Height 5 9 Weight 217 Ramirez Fibrosure 10/09/2017 [facility] Ramirez Fibrosis 0.29 High 0.00-0.[address] [place] [address] [phone] Ramirez Fibrosis Stage (SEE NOTE) 55 Ramirez Steatosis Score 0.76 High 0.00-0.30 Ramirez Steatosis Grade (SEE NOTE) 56 Ramirez Score 0.50 0.25 Ramirez Grade (SEE NOTE) 57 Height 60 Inches . Weight Measured 217 LBS . Ifhbj-4-Ndpyjduerndie 224 mg/dL 110-276 Haptoglobin 234 mg/dL High [...] N2N/CCD Import Serum or plasma 224 110-276 ftuqi-[id number] lzkmx-5-[id number] measurement n measurement (mass/volume) Serum or plasma [...] See Note 67 Unloinc See Note 68 Microalbumin,Random 06/15/2017 [facility] Microalbumin,Urine < 5.0 < 20.0 [address] mg/L [place], [place] [id number] [phone] Microalb/Creat 06/15/2017 [facility] Microalbumin/Creatin TNP < 30.0 70 Ratio,Random [address] ine Ratio ug/[place] [address] rt [phone] Urine Creatinine Conc 29 mg/dL Comprehensive 06/12/2017 [facility] Glucose 116 mg/dL High 74-106 71 Metabolic Panel [address] [place] [address] [phone] BUN 16 mg/dL N 7-18 Creatinine 1.2 [...] U/L N 45-117 CBS W/Automated Diff 06/12/2017 [facility] White Blood 4.2 K/uL N 3.4-10.[address] [place] [address] [phone] Red Blood Count 4.82 M/uL N 4.20-5.80 [...] 33.0-73.0 Lymph % 37.1 % N 20.0-42.0 [place] % 11.2 % High 0.0-10.0 Eo% 2.1 % N 0.0-6.6 Bas% 0.5 % N 0.0-1.1 Neut# 2.06 K/uL N 1.8-7.0 Lymph # 1.56 K/uL N 1.0-4.0 [place] # 0.47 K/uL N 0.0-0.8 Eos # 0.09 K/uL N 0.0-0.5 Baso # 0.02 K/uL N 0.0-0.1 LDL Cholesterol Profile 06/12/2017 [facility] Cholesterol 103 mg/dL <200 73 [address] [place] [address] [phone] Triglycerides 116 mg/dL <150 74 HDL Cholesterol 29 mg/dL Low >40 75 LDL-Cholesterol 51 mg/dL < 100 76 Glycohemoglobin A1c 06/12/2017 [facility] Glycohemoglobin 6.0 % N 4.2-6.3 77 [address] (A1c) [place], [place] [id number] [phone] eAG 126 mg/dL Poct glucose 02/03/2017 N2N/CCD [...] Performed by: Performed By Blood Gas w [facility] Clinical Lytes Staff Poc Art O2 Sat [...] Expiration Date 02/01/2017 Testing site Performed At [address] [place] [address] Transfusion status Ok To Transfuse Transfusion status Ok To Transfuse Transfusion status Ok To Transfuse Transfusion status Ok To Transfuse Unit Division 0 1 Unit Division 0 1 Unit Division 0 1 Unit Division 0 1 Unit Number [id number] Unit Number [id number] Unit Number [id number] Unit Number [id number] Unit status Rel From Alloc Unit status Rel From Alloc Unit status Rel From Alloc Unit status Rel From Alloc CBC 01/15/2017 N2N/[employer] Import Hematocrit 44.6 % 41.0 - 53.0 Hemoglobin 14.6 g/dL 13.5 - 18.0 MCH 29.8 pg 27.0 - 32.0 MCHC 32.8 g/dL 32.0 - 36.0 MCV 90.9 fL 80.0 - 95.0 MPV 9.3 fL 7.1 - 10.7 Platelets 236 10*3/uL 150 - 450 RBC 4.91 10*6/uL 4.60 - 6.10 RDW 14.2 % 10.5 - 14.5 WBC 7.0 10*3/uL 4.1 - 11.0 Comprehensive metabolic 01/15/2017 N2N/CCD Import Alb/Glob ratio [...] Urea nitrogen 15 mg/dL 7 - 24 Hemoglobin A1c 01/15/2017 N2N/CCD Import Est. Average Glucose 160 mg/dL Hemoglobin A1c 7.2 % High 4.0 - 6.0 Protime-Inr 01/15/2017 N2N/CCD Import Inr 0.97 1 Protime 10.1 s 9.2 - 11.9 Type and screen 01/15/2017 N2N/CCD Import Antibody Screen Negative Blood bank comment See Notes Patient Abo/Rh B Positive Specimen Expiration Date 01/30/2017 Testing site Performed At [address] [place] [address] CBS W/Automated 11/13/2016 [facility] White Blood 5.1 K/uL N 3.4-10.5 [address] Count [place], [place] [id number] [phone] Red Blood Count 4.87 M/uL N 4.20-5.80 [...] 33.0-73.0 Lymph % 37.6 % N 20.0-42.0 [place] % 10.6 % High 0.0-10.0 Eo% 2.2 % N 0.0-6.6 Bas% 0.6 % N 0.0-1.1 Neut# 2.50 K/uL N 1.8-7.0 Lymph # 1.92 K/uL N 1.0-4.0 [place] # 0.54 K/uL N 0.0-0.8 Eos # 0.11 K/uL N 0.0-0.5 Baso # 0.03 K/uL N 0.0-0.1 Glycohemoglobin 11/13/2016 [facility] Glycohemoglobin 7.8 % High 4.2-6.3 79 A[address]c [address] (A1c) [place] [address] [phone] eAG 177 mg/dL LDL Cholesterol Profile 11/13/2016 [facility] Cholesterol 90 mg/dL <200 80 [address] [place] [address] [phone] Triglycerides 320 mg/dL High <150 81 HDL Cholesterol 24 mg/dL Low >40 82 LDL-Cholesterol 2 mg/dL < 100 83 Comprehensive Metabolic 11/13/2016 [facility] Glucose 201 mg/dL High 74-106 Panel [address] [place] [address] [phone] BUN 21 mg/dL High 7-18 Creatinine 1.3 mg/dL N 0.6-1.3 Glom Filtration Rate, Estimate 60 mL/min >60 If >60 mL/min >60 84 BUN/Creat 16.1 ratio Sodium 139 mmol/L N [...] 12-78 Alkaline Phosphatase 77 U/L N 45-117 CBS W/Automated 07/11/2016 [facility] White Blood 4.2 K/uL N 3.4-10.5 [address] [place] [address] [phone] Red Blood Count 4.73 M/uL N 4.20-5.80 [...] 33.0-73.0 Lymph % 37.3 % N 17.0-56.0 [place] % 13.5 % High 0.0-10.0 Eo% 2.1 % N 0.0-5.0 Bas% 0.5 % N 0.1-1.0 Neut# 1.96 K/uL N 1.8-7.0 Lymph # 1.57 K/uL Low 1.8-7.0 [place] # 0.57 K/uL N 0.0-0.8 Eos # 0.09 K/uL N 0.0-0.5 Baso # 0.02 K/uL Low 0.1-0.2 Comprehensive Metabolic 07/11/2016 [facility] Glucose 186 mg/dL High 74-[address] [place] [address] [phone] BUN 17 mg/dL N 7-18 Creatinine 1.2 [...] Phosphatase 79 U/L N 45-117 Glycohemoglobin 07/11/2016 [facility] Glycohemoglobin 8.0 % High 4.2-6.3 87 A1c [address] [facility] (A1c) [place], [place] [address] [phone] eAG 183 mg/dL N LDL Cholesterol Profile 07/11/2016 [facility] Cholesterol 105 mg/dL N <200 88 [address] [place], [place] [address] [phone] Triglycerides 286 mg/dL High <150 89 HDL Cholesterol 21 mg/dL Low >40 90 LDL-Cholesterol 27 mg/dL N < 100 91 Basic Metabolic Panel 11/22/2015 [facility] Glucose 123 mg/dL High 74-106 [address] [place], [place] [address] [phone] BUN 22 mg/dL High 7-18 Creatinine 1.2 mg/dL 0.6-1.3 Glom Filtration Rate, Estimate >60 mL/min >60 If >60 mL/min >60 92 BUN/Creat 18.3 ratio Sodium 140 mmol/L 136-145 Potassium 4.0 mmol/L 3.5-5.1 Chloride 105 mmol/L 98-107 Carbon Dioxide 27 mmol/L 21-32 Anion Gap 8 mEq/L 8-16 Calcium 8.8 mg/dL 8.5-10.1 Laboratory test finding 11/24/2014 [facility] BUN 23 mg/dL High 7-18 [address] [place] [address] [phone] Basic Metabolic Panel 11/20/2014 [facility] Glucose 109 mg/dL High 74-106 [address] [place] [address] [phone] BUN 16 mg/dL 7-18 Creatinine 1.4 mg/dL High 0.6-1.3 Glom Filtration Rate, Estimate 56 mL/min >60 If >60 mL/min >60 93 BUN/Creat 11.4 ratio Sodium 139 mmol/L 136-145 Potassium 4.3 mmol/L 3.5-5.1 Chloride 107 mmol/L 98-107 Carbon Dioxide 28 mmol/L 21-32 Anion Gap 4 mEq/L Low 8-16 Calcium 9.0 mg/dL 8.5-10.1 Liver Function Tests 07/31/2014 [facility] Total Protein 7.4 g/dL 6.4-8.2 [address] [place] [address] [phone] Albumin 3.6 g/dL 3.4-5.0 Globulin 3.8 g/dL 1.9-4.3 Alb/Glob 0.9 ratio Bilirubin,Total 0.4 mg/dL 0.2-1.0 Bilirubin,Direct < 0.1 mg/dL 0.0-0.2 Bilirubin,Indirect 0.3 mg/dL 0.0-0.9 Sgot/Ast 32 U/L 15-37 SGPT/Alt 69 U/L 12-78 Alkaline Phosphatase 74 U/L 45-117 LDL Cholesterol 07/31/2014 [facility] Cholesterol 105 mg/dL < 200 94 Profile [address] [place] [address] [phone] Triglycerides 163 mg/dL < 150 95 HDL Cholesterol 22 mg/dL > 40 96 LDL-Cholesterol 50 mg/dL < 100 97 Basic Metabolic Panel 07/31/2014 [facility] Glucose 149 mg/dL High 74-106 [address] [place] [address] [phone] BUN 13 mg/dL 7-18 Creatinine 1.1 mg/dL 0.6-1.3 Glom Filtration Rate, Estimate >60 mL/min >60 If >60 mL/min >60 98 BUN/Creat 11.8 ratio Sodium 138 mmol/L 136-145 Potassium 4.5 mmol/L 3.5-5.1 Chloride 106 mmol/L 98-107 Carbon Dioxide 23 mmol/L 21-32 Anion Gap 14 mEq/L 8-16 Calcium 9.2 mg/dL 8.5-10.1 Basic Metabolic Panel See Note 99 Glycohemoglobin 07/31/2014 [facility] Glycohemoglobin 6.9 % High 4.2-6.3 100 A1c [address] (A1c) [place] [address] [phone] eAG 151 mg/dL LDL Cholesterol 04/08/2013 [facility] Cholesterol 97 mg/dL Low 120-200 Profile [address] [place] [address] [phone] Triglycerides 426 mg/dL High 16-231 HDL Cholesterol 19 mg/dL Low 29-83 LDL-Cholesterol See Note mg/dL 62-185 101 Liver Function Tests 04/08/2013 [facility] Total Protein 7.1 g/dL 6.3-8.[address] [place] [address] [phone] Albumin 3.7 g/dL 3.5-5.0 Globulin 3.4 g/dL 1.9-4.3 Alb/Glob 1.1 ratio Bilirubin,Total 0.3 mg/dL 0.2-1.2 Bilirubin,Direct < 0.1 mg/dL Low 0.1-0.4 Bilirubin,Indirect 0.2 mg/dL 0.0-0.9 Sgot/Ast 35 U/L 16-40 SGPT/Alt 65 U/L 30-65 Alkaline Phosphatase 99 U/L 50-136 Laboratory test 04/08/2013 [facility] Thyroid Stim 1.78 uIU/mL 0.49-4.[address] [place] [address] [phone] CBS W/Automated 04/08/2013 [facility] White Blood 6.0 K/uL 3.4-10.[address] [place] [address] [phone] Red Blood Count 4.82 M/uL 4.20-5.80 Hemoglobin [...] % 33.0-73.0 Lymph % 32.2 % 17.0-56.0 [place] % 10.5 % High 0.0-10.0 Eo% 1.0 % 0.0-5.0 Bas% 0.2 % 0.1-1.0 Neut# 3.36 K/uL 1.8-7.0 Lymph # 1.93 K/uL 1.2-4.0 [place] # 0.63 K/uL High 0.0-0.6 Eos # 0.06 K/uL 0.0-0.5 Baso # 0.01 K/uL Low 0.1-0.2 Basic Metabolic Panel 04/08/2013 [facility] Glucose 270 mg/dL High 76-115 [address] [place] [address] [phone] BUN 17 mg/dL 5-23 Creatinine 1.0 mg/dL 0.5-1.4 Glom Filtration Rate, Estimate >60 mL/min >60 If >60 mL/min >60 102 BUN/Creat 17.0 ratio Sodium 138 mmol/L 136-145 Potassium 4.2 mmol/L 3.5-5.1 Chloride 104 mmol/L 98-107 Carbon Dioxide 27 mEq/L 18-29 Anion Gap 11 mEq/L 8-16 Calcium 8.8 mg/dL 8.5-10.1 Glycohemoglobin 04/08/2013 [facility] Glycohemoglobin 11.9 % High 4.8-6.0 [address] (A1c) [place] [address] [phone] eAG 295 mg/dL Laboratory test 04/08/2013 [facility] Prostate 1.41 ng/mL 0.0-4.0 104 finding [address] [facility] [place] [address] Antigen [phone] Liver Function 12/20/2012 [facility] Total Protein 7.8 g/dL 6.3-8.0 Tests [address] [place], [place] [id number] [phone] Albumin 3.7 g/dL 3.5-5.0 Globulin 4.1 g/dL 1.9-4.3 Alb/Glob 0.9 ratio Bilirubin,Total 0.3 mg/dL 0.2-1.2 Bilirubin,Direct < 0.1 mg/dL Low 0.1-0.4 Bilirubin,Indirect 0.2 mg/dL 0.0-0.9 Sgot/Ast 26 U/L 16-40 SGPT/Alt 68 U/L High 30-65 Alkaline Phosphatase 134 U/L 50-136 LDL Cholesterol 12/20/2012 [facility] Cholesterol 129 mg/dL 120-200 Profile [address] [place], [place] [id number] [phone] Triglycerides 555 mg/dL High 16-231 HDL Cholesterol 23 mg/dL Low 29-83 LDL-Cholesterol See Note mg/dL 62-185 105 Laboratory test 03/05/2012 [facility] Thyroid Stim 1.62 uIU/mL 0.49-4.67 finding 134 [facility] Hormone [place], [place] [address]97 [phone] Prostate Specific Antigen 1.72 ng/mL 0.0-4.0 106 LDL Cholesterol 03/05/2012 [facility] Cholesterol 113 mg/dL Low 120-200 Profile [address] [place], [place] [address] [phone] Triglycerides 342 mg/dL High 16-231 HDL Cholesterol 21 mg/dL Low 29-83 LDL-Cholesterol 24 mg/dL Low 62-185 CBC W/Automated Diff 03/05/2012 [facility] White Blood 6.2 K/uL 3.4-10.5 [address] [facility] [place] [address] [phone] Red Blood Count 4.78 M/uL 4.20-5.80 Hemoglobin [...] % 33.0-73.0 Lymph % 37.7 % 17.0-56.0 [place] % 11.4 % High 0.0-10.0 Eo% 1.5 % 0.0-5.0 Bas% 0.2 % 0.1-1.0 Neut# 3.03 K/uL 1.8-7.0 Lymph # 2.32 K/uL 1.2-4.0 [place] # 0.70 K/uL High 0.0-0.6 Eos # 0.09 K/uL 0.0-0.5 Baso # 0.01 K/uL Low 0.1-0.2 Comprehensive Metabolic 03/05/2012 [facility] Glucose 270 mg/dL High 76-115 Panel [address] [place] [address] [phone] BUN 15 mg/dL 5-23 Creatinine 1.2 mg/dL 0.5-1.4 Glom Filtration Rate, Estimate >60 mL/min >60 If >60 mL/min >60 107 BUN/Creat 12.5 ratio Sodium 136 mmol/L 136-145 Potassium 4.4 mmol/L 3.5-5.1 Chloride 101 mmol/L 98-107 Carbon Dioxide 27 mEq/L 18-29 Anion Gap 12 mEq/L 8-16 Calcium 8.7 mg/dL 8.5-10.1 Total Protein 7.7 g/dL 6.3-8.0 Albumin 3.6 g/dL 3.5-5.0 Globulin 4.1 g/dL 1.9-4.3 Alb/Glob 0.9 ratio Bilirubin,Total 0.6 mg/dL 0.2-1.2 Sgot/Ast 37 U/L 16-40 SGPT/Alt 76 U/L High 30-65 Alkaline Phosphatase 76 U/L 50-136 Laboratory test 09/01/2011 [facility] Thyroid Stim 1.69 uIU/mL 0.49-4.[address] [place] [address] [phone] Prostate Specific Antigen 1.50 ng/mL 0.0-4.0 108 CBC W/Automated Diff 09/01/2011 [facility] White Blood 5.8 K/uL 3.4-10.[address] [place] [address] [phone] Red Blood Count 4.98 M/uL 4.20-5.80 Hemoglobin 15.0 gm/dL 12.8-17.0 Hematocrit 44.7 % 38.0-48.0 Mean Cell Volume 89.8 fl 80.0-96.0 Mean Corpuscular HGB 30.1 pg 27.0-33.0 Mean Corpuscular HGB Conc 33.6 g/dL 31.7-36.0 Platelet Count 216 K/uL 150-400 Red Cell Distri Width %CV 12.8 % 11.6-15.8 Mean Platelet Volume 11.0 fL High 6.6-10.6 Neut% 52.9 % 33.0-73.0 Lymph % 34.7 % 17.0-56.0 [place] % 10.8 % High 0.0-10.0 Eo% 1.4 % 0.0-5.0 Bas% 0.2 % 0.1-1.0 Neut# 3.05 K/uL 1.8-7.0 Lymph # 2.00 K/uL 1.2-4.0 [place] # 0.62 K/uL High 0.0-0.6 Eos # 0.08 K/uL 0.0-0.5 Baso # 0.01 K/uL Low 0.1-0.2 Red Cell Distri Width SD 41.3 fl 36-51 LDL Cholesterol 09/01/2011 [facility] Cholesterol 124 mg/dL 120-200 Profile [address] [place] [address] [phone] Triglycerides 288 mg/dL High 16-231 HDL Cholesterol 20 mg/dL Low 29-83 LDL-Cholesterol 46 mg/dL Low 62-185 Liver Function Tests 09/01/2011 [facility] Total Protein 7.4 g/dL 6.3-8.[address] [place] [address] [phone] Albumin 3.7 g/dL 3.5-5.0 Bilirubin,Total 0.4 mg/dL 0.2-1.2 Bilirubin,Direct 0.1 mg/dL 0.1-0.4 Bilirubin,Indirect 0.3 mg/dL 0.0-0.9 Sgot/Ast 44 U/L High 16-40 SGPT/Alt 82 U/L High 30-65 Alkaline Phosphatase 82 U/L 50-136 Globulin 3.7 g/dL 1.9-4.3 Alb/Glob 1.0 ratio LDL Cholesterol 09/12/2010 [facility] Cholesterol 125 mg/dL 120-200 Profile [address] [place] [address] [phone] Triglycerides 324 mg/dL High 0-210 HDL Cholesterol 24 mg/dL Low 32-96 LDL-Cholesterol 36 mg/dL Low 62-185 Liver Function Tests 09/12/2010 [facility] Total Protein 7.7 g/dL 6.3-8.[address] [place] [address] [phone] Albumin 3.8 g/dL 3.5-5.0 Bilirubin,Total 0.5 mg/dL 0.2-1.2 Bilirubin,Direct 0.1 mg/dL 0.1-0.4 Bilirubin,Indirect 0.4 mg/dL 0.0-0.9 Sgot/Ast 53 U/L High 16-40 SGPT/Alt 106 U/L High 30-65 Alkaline Phosphatase 109 U/L 50-136 Globulin 3.9 gm/dL 1.9-4.3 Alb/Glob 1.0 Liver Function Tests 02/19/2010 [facility] Total Protein 7.5 g/dL 6.3-8.[address] [place] [address] [phone] Albumin 3.6 g/dL 3.5-5.0 Bilirubin,Total 0.3 mg/dL 0.2-1.2 Bilirubin,Direct 0.0 mg/dL Low 0.1-0.4 Bilirubin,Indirect 0.3 mg/dL 0.0-0.9 Sgot/Ast 32 U/L 16-40 SGPT/Alt 90 U/L High 30-65 Alkaline Phosphatase 111 U/L 50-136 Globulin 3.9 gm/dL 1.9-4.3 Alb/Glob 0.9 LDL Cholesterol 02/19/2010 [facility] Cholesterol 122 mg/dL 120-200 Profile [address] [place] [address] [phone] Triglycerides 357 mg/dL High 0-210 HDL Cholesterol 29 mg/dL Low 32-96 LDL-Cholesterol 22 mg/dL Low 62-185 1 E78.5 2 Note: Persistent reduction for [...] for more aggressive treatment of glycemia. The [place] [employer] recommends that a primary goal of therapy should be a HbA1c of <7% and that physicians should re-evaluate the treatment regimen in patients with HbA1c values consistently >8%. 4 Vitamin D deficiency has been defined by the [place] [employer] and an Endocrine Society practice guideline as a level of serum 25-OH vitamin D less than 20 ng/mL (1,2). The Endocrine Society went on to further define vitamin D insufficiency as a level between 21 and 29 ng/mL (2). 1. IOM ([place] of [employer]). 2010. Dietary reference intakes for calcium and D. [place]: The National Academies Press. 2. Max MF, Mk HAYS, Nacho JASSO, et al. Evaluation, treatment, and prevention of vitamin D deficiency: an Endocrine Society clinical practice guideline. JCEM. 2010; 96(7):1911-30. Performed at: RN - [facility] [address], [place], [place] [id number] Edge Setter: Karyn Marrero MD, Phone: [phone] Reference Guidelines*: Desirable: ........... < 200 [...] Program (NCEP) 9 R94.5 10 Performed at: RN - [facility] [address] [id number] Edge Setter: Karyn Marrero MD, Phone: [phone] INFCE Result Units: s/co ratio Negative: < 0.8 Indeterminate: 0.8 - 0.9 Positive: > 0.9 The CDC recommends that a positive HCV antibody result be followed up with a HCV Nucleic Acid Amplification test (359417). Performed at: - [facility] [address] [id number] Edge Setter: Karyn Marrero MD, Phone: [phone] 12 E78.5,E11.42 13 Note: Persistent reduction for [...] for more aggressive treatment of glycemia. The [place] [employer] recommends that a primary goal of therapy should be a HbA1c of <7% and that physicians should re-evaluate the treatment regimen in patients with HbA1c values consistently >8%. 15 Vitamin D deficiency has been defined by the [place] [employer] and an Endocrine Society practice guideline as a level of serum 25-OH vitamin D less than 20 ng/mL (1,2). The Endocrine Society went on to further define vitamin D insufficiency as a level between 21 and 29 ng/mL (2). 1. IOM ([place] [employer]). 2010. Dietary reference intakes for calcium and D. [place]: The National AcademGeogoer Press. 2. Max MF, Mk NC, Nacho JASSO, et al. Evaluation, treatment, and prevention of vitamin D deficiency: an Endocrine Society clinical practice guideline. JCEM. 2010; 96(7):1911-30. Performed at: RN - [facility] [address] [id number] Edge Setter: Karyn Marrero MD, Phone: [phone] 16 Reference Guidelines*: Desirable: ........... < 200 [...] for more aggressive treatment of glycemia. The [place] [employer] recommends that a primary goal [...] for more aggressive treatment of glycemia. The [place] [employer] recommends that a primary goal [...] for more aggressive treatment of glycemia. The [place] [employer] recommends that a primary goal [...] information may be found at www.kdoqi.org. 40 9;30 [facility] [place] [address] 41 Note: Persistent reduction for 3 months [...] for more aggressive treatment of glycemia. The [place] [employer] recommends that a primary goal [...] with a HCV Nucleic Acid Amplification test (715456). Performed at: [address] [id number] Edge Setter: Karyn Marrero MD, Phone: [phone] Performed at: [address] [id number] Edge Setter: Rigo Cabezas MD, Phone: [phone] Performed at: [address] [id number] Edge Setter: Karyn Marrero MD, Phone: [phone] F1 - Portal fibrosis 56 S3 [...] developed and its performance characteristics determined by [employer]. It has not been cleared or approved [...] fatty liver disease. [facility] 2006; 6:34 doi:10.1186/3873-320J-5-34. 64 Ramirez FibroSure is recommended for patients [...] or Severe Steatosis 68 0.25=N0 - Not Rmairez 0.50=N1 - Borderline or probable Ramirez 0.75=N2 [...] for more aggressive treatment of glycemia. The [place] [employer] recommends that a primary goal of therapy should be a HbA1c of <7% and that physicians should re-evaluate the treatment regimen in patients with HbA1c values consistently >8%. 78 E78.4,E11.42,I73.9,I25.10 79 Elevated levels of HbA1c suggest the need for more aggressive treatment of glycemia. The [place] [employer] recommends that a primary goal [...] information may be found at [email or web address]. 85 E78.4 86 Note: Persistent reduction for [...] for more aggressive treatment of glycemia. The [place] [employer] recommends that a primary goal [...] may be found at [email or web address]. 99 07/31/14 [facility] [employer] SHARE ALL RESULTES 100 Elevated levels of HbA1c suggest the need for more aggressive treatment of glycemia. The [place] [employer] recommends that a primary goal [...] BE CALCULATED FOR TRIGS >400 mg/dL) 106 THIS ASSAY IS NOT INTENDED A CANCER SCREENING TEST The concentration of PSA in a given specimen, determined with assays from different manufacturers, can vary due to differences in assay methods and reagent specificity. Values obtained from different assay methods cannot be used interchangeably. 107 Note: Persistent reduction for 3 months or more in an eGFR <60 mL/min/1.73 m2 defines CKD. Patients with eGFR values >/=60 mL/min/1.73 m2 may also have CKD if evidence of persistent proteinuria is present. The original MDRD equation for estimated GFR is not valid for patients less than 18 years of age. Additional information may be found at [email or web address]. 108 THIS ASSAY IS NOT INTENDED A CANCER SCREENING TEST The concentration of PSA in a given specimen, determined with assays from different manufacturers, can vary due to differences in assay methods and reagent specificity. Values obtained from different assay methods cannot be used interchangeably. Procedures Date Code Description Status 03/03/2019 49026 Eye Exam Est Patient Comprehensive Completed 02/23/2019 40078 EKG-Tracing And Report Completed 02/08/2019 69822 Debridement Nails Any Method 6 Or More Completed 10/12/2018 [id number] Diabetic Foot Exam Completed 10/11/2018 80735 Debridement Nails Any Method 6 Or More Completed 08/06/2018 85004 Echocardiogram Complete Completed 11/05/2017 52867 Laparoscopy Surgical Repair Incisional Hernia Completed 10/15/2017 60921 Colonoscopy With Biopsy Completed 10/15/2017 70552 EGD With Biopsy Completed 10/09/2017 99686 Eye Exam New Patient Comprehensive Completed 09/21/2017 [id number] Colonoscopy Completed 08/20/2017 88219 EKG-Tracing And Report Completed 03/30/2017 97070 Bronchospasm Provocation Evaluation Multi Spirometric Completed Determinati 03/30/2017 32439 Spirometry Completed 01/13/2017 29300 Stress Test Interpre And Report Only Completed 01/13/2017 80505 Stress Test Physician Super Only Completed 01/13/2017 82446 Myocardial Imaging Tomographic Multiple Study AT Rest Completed Or Stress 01/09/2017 02970 EKG-Tracing And Report Completed 10/01/2016 38089 EKG-Tracing And Report Completed 04/14/2016 46404 Nerve Conduction 5-6 Studies Completed 04/14/2016 03114 Needle Electromyography Complete, Five Or More Muscles Completed Studied 11/22/2015 52904 EKG-Tracing And Report Completed 07/04/2015 10292 Bronchospasm Provocation Evaluation Multi Spirometric Completed Determinati 07/04/2015 43240 Bronchodilation Responsiveness Spirometry Pre/Post Completed Bronchodil Adm 07/04/2015 92041 Spirometry Completed 11/13/2014 32542 Myocardial Imaging Tomographic Multiple Study AT Rest Completed Or Stress 11/13/2014 39699 Stress Test Physician Super Only Completed 11/13/2014 98892 Stress Test Physician Super Only Completed 11/13/2014 07468 Stress Test Interpre And Report Only Completed 05/02/2014 94451 EKG-Tracing And Report Completed 10/04/2013 93948 Echocardiogram Complete Completed 03/13/2011 70976 EKG-Tracing And Report Completed 03/13/2011 97163 EKG-Tracing And Report Completed 03/12/2010 54981 EKG-Tracing And Report Completed 01/19/2009 34492 Echocardiogram Complete Completed 01/19/2009 91852 Stress Test Interpre And Report Only Completed 01/19/2009 09730 Stress Test Physician Super Only Completed 01/19/2009 62815 Ejection Fraction Completed 01/19/2009 73522 Myocardial Wall Motion Completed 01/19/2009 42771 Cardiolite Stress/Rest Spect Completed 01/17/2009 56987 EKG-Tracing And Report Completed Encounters Type Date Location Provider Dx Diagnosis Office Visit 02/23/2019 Cardiology Office Nola Miller R06.02 Shortness of 3:20p Phani, BRI, breath 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 I25.10 [facility] 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 I10 Essential (primary) hypertension I73.9 Peripheral vascular disease, unspecified E78.5 Hyperlipidemia, unspecified R09.89 Oth symptoms and signs involving the circ and resp systems Office Visit 01/18/2019 3:00p Primary Care Kaykay Schwartz, K76.0 Fatty (change of) Office MS, 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-C, CNM liver, not elsewhere classified R94.5 Abnormal results of liver function studies E11.9 Type 2 diabetes mellitus without complications E55.9 Vitamin D deficiency, unspecified F17.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, cigarettes, in remission I10 Essential (primary) hypertension Office Visit 01/13/2019 4:30p Paulina Haas MD K76.0 Fatty (change of) liver, not elsewhere classified R94.5 Abnormal results of liver function studies Office Visit 12/14/2018 3:30p Primary Care Lana E11.9 Type 2 diabetes Office MS Kaykay, mellitus without 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-C, CNM complications E55.9 Vitamin D deficiency, unspecified [...] 2 diabetes Office MS Kaykay, mellitus without 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-C, CNM complications R94.5 Abnormal results of liver function studies R06.2 Wheezing J06.9 Acute upper respiratory infection, unspecified I10 Essential (primary) hypertension E55.9 Vitamin D deficiency, unspecified R06.02 Shortness of breath R05 Cough Office Visit 11/03/2018 3:30p Primary Care Lana, E11.9 Type 2 diabetes Office MS Kaykay, mellitus without 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-C, CNM complications B35.3 Tinea pedis R94.5 Abnormal results of liver function studies I10 Essential (primary) hypertension E55.9 Vitamin D deficiency, unspecified E78.5 Hyperlipidemia, unspecified Office Visit 10/20/2018 3:30p Primary Care Lana, E11.9 Type 2 diabetes Office MS Kaykay, mellitus without 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-C, CNM complications B35.3 Tinea pedis I35.1 Nonrheumatic aortic (valve) insufficiency I25.10 [facility] heart 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 I10 Essential (primary) hypertension I73.9 Peripheral vascular disease, unspecified E78.5 Hyperlipidemia, unspecified K21.0 Gastro-esophageal reflux disease with esophagitis R94.5 Abnormal results of liver function studies Office Visit 10/11/2018 1:00p Podiatry Office Edgar Morgan, E11.9 Type 2 diabetes DPM mellitus without complications B35.3 Tinea pedis Office Visit 08/23/2018 Cardiology Nola Miller I35.1 Nonrheumatic aortic 3:00p Office BRI Jeronimo, (valve) 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 insufficiency I25.10 [facility] heart 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 I10 Essential (primary) hypertension I34.0 Nonrheumatic mitral (valve) insufficiency I73.9 Peripheral vascular disease, unspecified Office Visit 07/20/2018 3:00p Primary Care Kaykay Schwartz, J44.9 Chronic Office MS, 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-C, CNM obstructive pulmonary disease, unspecified E11.42 Type [...] Care Lana M54.5 Low back pain Office Kaykay, MS, 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-C, CNM Office Visit 04/02/2018 2:30p Primary Care Fidel Schwartz4.5 Low back pain Office Kaykay, MS, 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-C, CNM Office Visit 02/17/2018 2:20p Cardiology Office Nola Miller I25.10 [facility] heart BRI Jeronimo, disease of 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 [place] coronary artery w/o ang pctrs E78.4 Other [...] pain Office Visit 10/16/2017 9:20a Primary Care Katlein Dickey MD K43.2 Incisional hernia Office without obstruction or gangrene I10 Essential (primary) hypertension E78.5 Hyperlipidemia, unspecified E11.42 Type 2 diabetes mellitus with diabetic polyneuropathy N52.9 Male erectile dysfunction, unspecified Office Visit 10/14/2017 11:00a Surgical Office Rupa K43.2 Incisional hernia Kar, without ,FACS obstruction or gangrene Office Visit 10/05/2017 9:00a Surgical Office Rupa, K43.2 Incisional hernia Kar, without MD,FACS obstruction or gangrene Office Visit 09/30/2017 8:45a SIMONE Del Valle MD R12 Heartburn Z12.11 Encounter for screening for malignant neoplasm of colon K62.5 Hemorrhage of anus and rectum K76.0 Fatty (change of) liver, not elsewhere classified Office Visit 09/11/2017 1:00p Primary Care Katelin Dickey, I10 Essential ( primary) Office MD hypertension K42.9 Umbilical hernia without obstruction or gangrene Office Visit 08/20/2017 3:00p Pulmonology Cresencio Hair MD J44.9 Chronic obstructive pulmonary disease, unspecified R04.0 Epistaxis F17.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, cigarettes, in remission K42.9 Umbilical hernia without obstruction or gangrene Office Visit 08/20/2017 Cardiology Nay, Z01.810 Encounter for 4:00p Office Garcia Olivier M.D., preprocedural FACC cardiovascular examination I10 Essential (primary) hypertension I25.10 [facility] heart 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 E78.5 Hyperlipidemia, unspecified I73.9 Peripheral vascular disease, unspecified Office Visit 06/19/2017 9:45a Primary Care Katelin Dickey, I10 Essential ( primary) Office MD hypertension Office Visit 06/15/2017 9:20a Primary Care Katelin Dickey, E11.42 Type 2 diabetes Office MD mellitus with diabetic polyneuropathy E78.4 Other hyperlipidemia I25.10 [facility] heart 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 I10 Essential (primary) hypertension M51.16 Intervertebral disc disorders w radiculopathy, lumbar region Z23 Encounter for immunization Office Visit 03/17/2017 9:40a Primary Care Katelin Dickey, E11.42 Type 2 diabetes Office MD mellitus with diabetic polyneuropathy Z79.84 penitentiary (current) use of oral hypoglycemic drugs E78.4 Other hyperlipidemia I73.9 Peripheral vascular disease, unspecified Office Visit 01/09/2017 Cardiology Nay Z01.810 Encounter for 1:40p Office Garcia Olivier M.D., preprocedural FAC cardiovascular examination I73.9 Peripheral vascular disease, unspecified E78.4 Other hyperlipidemia I25.10 [facility] heart 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 Office Visit [...] (primary) hypertension I25.10 [facility] heart 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 B35.3 Tinea pedis Office Visit 10/01/2016 Cardiology Nola Miller Z01.810 Encounter for 3:00p Office BRI Jeronimo, preprocedural 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 cardiovascular examination I25.10 [facility] heart 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 I73.9 Peripheral vascular disease, unspecified E78.4 Other hyperlipidemia I10 Essential (primary) hypertension E11.42 Type 2 diabetes mellitus with diabetic polyneuropathy J44.9 Chronic obstructive pulmonary disease, unspecified Office Visit 07/08/2016 10:00a Primary Care Gregorio Ortega I25.10 [facility] Office E., DO 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 E78.4 Other [...] Nola Miller M51.16 Intervertebral disc 3:20p Office Phani, MSN, disorders w 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 radiculopathy, lumbar region I73.9 Peripheral vascular disease, unspecified I25.10 [facility] heart 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 E78.4 Other hyperlipidemia I10 Essential (primary) hypertension Office Visit 12/25/2015 1:30p Pulmonology Cresencio Hair, J43.2 Centrilobular MD emphysema F17.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, cigarettes, in remission Office Visit 11/22/2015 3:20p Cardiology Garcia Tee I73.9 Peripheral Office Elo Olivier, [facility] vascular disease, unspecified I25.10 [facility] heart 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 E78.4 Other hyperlipidemia Office Visit 06/25/2015 2:00p Pulmonology Cresencio Hair, R06.02 Shortness of MD breath Office Visit 05/23/2015 1:00p Cardiology Office Nola Miller 786.05 Shortness Of Phani, Breath MSN, 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 414.01 Coronary Atherosclerosis [place] 443.9 Peripheral Vascular Disease Unspec 401.1 Hypertension Benign 272.4 Hyperlipidemia Other Unspec Office Visit 11/09/2014 1:00p Cardiology Office Nola Miller 786.05 Shortbenjamin Of Phani, MSN, Breath 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 414.01 Coronary Atherosclerosis [place] 443.9 Peripheral Vascular Disease Unspec 401.1 Hypertension Benign 272.4 Hyperlipidemia Other Unspec Office Visit 05/02/2014 Cardiology Nay 414.01 Coronary 11:40a Office Garcia Olivier M.D., Atherosclerosis FACC [place] 443.9 Peripheral Vascular Disease Unspec 401.1 Hypertension Benign 302.72 Psychosexual Dysfunction W/ Inhibited Sexual Excitement Office Visit 10/11/2013 2:00p Cardiology Office Garcia Tee 424.0 Mitral Valve Elo Olivier, FACC Disorder 272.4 Hyperlipidemia Other Unspec 414.01 Coronary Atherosclerosis [place] 443.9 Peripheral Vascular Disease Unspec Office Visit 04/06/2013 Cardiology Nola Miller 272.4 Hyperlipidemia 1:40p Office BRI Jeronimo, Other Unspec 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 414.01 Coronary Atherosclerosis [place] 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 443.9 Peripheral Vascular Disease Unspec 401.1 Hypertension Benign 424.0 Mitral Valve Disorder 790.21 Impaired Fasting Glucose Office Visit 10/06/2012 Cardiology Garcia Tee 272.4 Hyperlipidemia 2:40p Office Elo Olivier, FACC Other Unspec 414.01 Coronary Atherosclerosis [place] 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 443.9 Peripheral Vascular Disease Unspec Office Visit 03/02/2012 Cardiology Nola Miller 414.01 Coronary 3:30p Office BRI Jeronimo, Atherosclerosis 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 [place] 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 443.9 Peripheral Vascular Disease Unspec 272.4 Hyperlipidemia Other Unspec 401.1 Hypertension Benign 790.29 Other Abnormal Glucose Office Visit 09/01/2011 Cardiology Nay 414.01 Coronary 3:10p Office Garcia Olivier M.D., Atherosclerosis FACC [place] 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 443.9 Peripheral Vascular Disease Unspec 272.4 Hyperlipidemia Other Unspec 401.1 Hypertension Benign 441.9 Aneurysm Aortic W/O Rupture Unspec Site Office Visit 03/13/2011 Cardiology Nola Miller 414.01 Coronary 2:00p Office BRI Jeronimo, Atherosclerosis 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 [place] 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 443.9 Peripheral Vascular Disease Unspec 272.4 Hyperlipidemia Other Unspec 401.1 Hypertension Benign 441.9 Aneurysm Aortic W/O Rupture Unspec Site 790.29 Other Abnormal Glucose Office Visit 09/11/2010 Cardiology Nay 414.01 Coronary 2:10p Office Garcia Olivier M.D., Atherosclerosis FACC [place] 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 272.4 Hyperlipidemia Other Unspec 401.1 Hypertension Benign Office Visit 03/12/2010 Cardiology Nay 414.01 Coronary 12:40p Office Garcia Olivier M.D., Atherosclerosis [facility] [place] 443.9 Peripheral Vascular Disease Unspec 401.1 Hypertension Benign 272.4 Hyperlipidemia Other Unspec 786.05 Shortness Of Breath 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 Office Visit 03/12/2009 Cardiology Nay 414.01 Coronary 2:00p Office Garcia Olivier M.D., Atherosclerosis [facility] [place] 441.9 Aneurysm Aortic W/O Rupture Unspec Site Office Visit 01/26/2009 2:00p Cardiology Office Garcia Tee 786.05 Shortness Of Elo Olivier, [facility] Breath 443.9 Peripheral Vascular Disease Unspec 401.1 Hypertension Benign 794.30 Cardiovascular Function Study Unspec Abnormal Office Visit 01/17/2009 Cardiology Garcia Tee 401.1 Hypertension 9:00a Office Elo Olivier, FAC Ben[place] 786.05 Shortness Of Breath 272.4 Hyperlipidemia Other Unspec V72.81 Examination Preoperative Cardiovascular Plan of Treatment Future Appointment(s):03/05/2020 3:45 pm - Quirino Flores MD at [email or web address]/ 08/2019 3:20 pm - Nola Miller, BRI, 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 at Cardiology [id number] 4:05 pm - Edgar Morgan DPM at Podiatry Rowspf1804/20/2019 3:30 pm - Kaykay Schwartz MS, 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-C, CNM at Primary Care Apscoo9406/15/2019 3:45 pm - Cresencio Hair MD at Ogovtpdfcqf57/13/2019 - Quirino Flores MDE11.9 Type 2 diabetes mellitus without complicationsComments:- no sign of diabetic retinopathy- no macular edema- no neovascularization- glycemic, bp, lipid, weight control- potential for retinopathy, vision loss, and potential need for treatment- letter to primaryFollow up:1 year exam; dm2H04.123 Dry eye syndrome of bilateral lacrimal glandsComments:- if bothersome, please consider:- warm compresses- artificial tears both eyes- consider ointment atnight- can consider punctal occlusion or restasis
--- OUTSIDE RECORDS SUMMARY | 2019-03-12 18:54 | XMS REPORT | Continuity of Care Document ---
:1960 External Reference #:[id number] Author Name Nola Miller, BRI, PUBLIC HEALTH WORKER Address [address] [place] [address] Care Team Providers Name Role Phone Kaykay Schwartz, KAYLEIGH, CNM Care Team Information Campus Safety Officer Unavailable Katelin Dickey MD Primary Care Physician Unavailable Payers Date Identification Numbers Payment Provider Subscriber Policy Number: [id number] [facility] Remington Gomez PayID: [id number] [address] [address] [place] [address] Expires: 2018 Policy Number: [id number] [employer] Remington Gomez PayID: [id number] [address] [place] [address] Problems Active Problems Provider Date Coronary arteriosclerosis Nola Miller, BRI, Onset: 03/02/2012 [employer] HE[employer] WORKER Carotid artery occlusion Nola Miller, BRI, Onset: 03/02/2012 PUBLIC HEALTH WORKER Peripheral vascular disease Nola Miller, MSN, Onset: 03/02/2012 PUBLIC HEALTH WORKER Hyperlipidemia Nola Miller, BRI, Onset: 03/02/2012 PUBLIC HEALTH WORKER Benign essential hypertension Nola Miller, BRI, Onset: 03/02/2012 PUBLIC HEALTH WORKER Mitral valve disorder Garcia Tee M.D., Onset: 10/11/2013 FACC Psychosexual dysfunction associated Garcia Tee M.D., 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 Smoking Status Reviewed: 02/08/19 Quit smoked 1.5 ppd for 30 yrs. [...] mouth twice a MD Tablets day Ipratropium [place] use 2 sprays in 15ml J06.9 Keli, Katelin, 11/30/2018 0.06% each nostril MD Solution twice a day Benzonatate take one capsule 30caps R05 Keli, Katelin, 11/30/2018 200mg every 8 hours as MD Capsules needed Ergocalciferol take one a week 16caps E55.9 Keli, Katelin, 11/03/2018 [id number] MD Capsules Clopidogrel Bisulfate Take 1 Tablet By 30tabs Nay, 10/28/2018 Mouth Once Daily Garcia Olivier M.D., 75mg Tablets [facility] Proair Respiclick Take one or two 1units Gagen, 07/21/2018 puffs every 4-6 Kaykay, MS, 108(90Base) mcg/Act hours as needed PUBLIC HEALTH WORKER-C, CNM Aerosol for SOB Lancets Ultra Thin 30G Check BS 3- 4 100units E11.9 Gagen, 07/20/2018 times a day Type Kaykay, MS, Thin 30G Misc 2 diabetes PUBLIC HEALTH WORKER-C, CNM Freestyle Test fasting fs tid & [...] Tablets Mouth Once Daily Garcia Olivier M.D., [facility] Glimepiride Take 3 Tablets 270tabs Keli, Katelin, 02/04/2018 2mg Tablets By Mouth Once MD Daily Amlodipine Besylate Take 1 Tablet By 90tabs Katelin Dickey, 01/15/2018 5mg Mouth Once Daily Tablets Cialis 1 tab by mouth 30tabs [...] 90tabs Nola Miller 81mg Tablets BRI Jeronimo, PUBLIC HEALTH WORKER Atenolol Take One Tablet 90tabs Nay, 50mg Tablets By Mouth Once Garcia Olivier M.D., Daily FACC [id number] Ethyl Quirino Mancia MD Esters 1gm Capsules [...] - 20mg Tablets daily for 5 days MD Donaldson BD Pen Use with Victoza 100units Katelin Dickey, 11/30/2018 - Needle/Short/Ultra-Fin once a day, as 01/05/2019 e/31G X 8mm directed 31G X 8 mm Misc Victoza inject 0.6mg 18ml E11.9 Gagen, 11/03/2018 - 18mg/3ML Solution subq once daily Kaykay, 01/05/2019 Pen-Inject then after one MS, PUBLIC HEALTH WORKER-C, CNM week increase to 1.2mg once daily [...] M54.5 Gagen, 04/02/2018 - Gel affected area Mendoza Mccracken four times a day MS, PUBLIC HEALTH WORKER-C, CNM pain, swelling, bruising Cyclobenzaprine HCL Take one tablet 30tabs M54.5 Gagen, 04/02/2018 - 10mg every 8 hours Kaykay, 04/12/2018 Tablets prn low back MS, PUBLIC HEALTH WORKER-C, CNM pain Golytely drink half the 4000ml Z12.11 Johnathon Del Valle MD 09/30/2017 - 236gm Solution evening before 10/05/2017 Rec and half the morning of the procedure (1 cup every 10') Dulcolax 4 tablets taken 4tabs Z12.11 Johnathon Del Valle MD 09/30/2017 - 5mg Tablets DR a 8pm the day 10/05/2017 before the procedure Magnesium Citrate 1 bottle po x 296ml Z12.11 Johnathon Del Valle MD 09/30/2017 - one as directed 10/05/2017 1.745GM/30ML Solution Lisinopril-Hydrochloro 1 by mouth every 90tabs I10 Nay, 08/20/2017 - thiazide day Garcia Olivier, 09/11/2017 20-25mg Tablets MDilan, FACC E11.9 Glimepiride 2 tab by mouth 90tabs Krishan Dickeya, 06/15/2017 - 2mg every day 02/04/2018 Tablets Janumet Take 1 Tablet By 90tabs Krishan Dickeya, 06/15/2017 - 50-1000mg Mouth Once Daily MD 12/07/2018 Tablets Janumet 1 tab by mouth 90tabs Katelin Dickey, 11/30/2016 - 50-1000mg every day 06/15/2017 Tablets Gabapentin 1-2 tab by mouth 60caps Katelin Dickey, 11/12/2016 - 100mg every night as Unknown Capsules needed Ciclopirox apply to affected 45gm Katelin Dickey, 11/12/2016 - 0.77% Gel area of bilateral MD Unknown toes twice daily for four weeks Medrol medrol dose pack 1units M51.16 Nola Miller 05/28/2016 - 4mg TBPK as on package Phani, BRI, Unknown PUBLIC HEALTH WORKER Ventolin HFA take 1-2 puffs QS J43.2 [...] - 20mg BRI Jeronimo, Unknown Capsules DR SEBASTIEN Aciphex 1 po qd 30tabs Nay, 09/11/2010 - 20mg Tablets Garcia Olivier M.D., 10/01/2010 DR LOZANO Tricor Take One Tablet 30tabs 272.4 Nay, [...] 10mg Tablets By Mouth Every M., M.D., [facility] 12/21/2012 Day Glimepiride 1 po qd 180tabs Unknown - 4mg 06/15/2017 Tablets Fenofibrate take one tablet 90tabs E78.4 Garcia Tee - 145mg by mouth every M., M.D., [facility] 02/19/2018 Tablets day Tums chew and swallow Unknown - 500mg Chewtabs 1 tablet by 01/15/2018 mouth 3 times per day prn Hydrocodone-Acetamin as needed Unknown - ophen 12/07/2017 5-325mg Tablets Immunizations CPT Code Status Date Vaccine Reaction Lot # 13484 Given 07/20/2018 Influenza Virus Vaccine, Quadrivalent, 36 none [id number] Mos+, .5ML 54665 Given 06/15/2017 Influenza Virus Vaccine Quadrivalent Iiv4 [id number] [address] Given 07/08/2016 Influenza Virus Vaccine Split Virus Use [id number] For Individual 3Yr Older [id number] Given 07/04/2015 Influenza Vaccine (Fluzone) Age 3 And Older [id number] Given 08/04/2013 Pneumovax Injection Vital Signs Date Vital Result Comment 02/23/2019 3:37pm BP Systolic Sitting Right Arm 124 mmHg BP Diastolic Sitting Right Arm 76 mmHg Heart Rate 67 /min Respiratory Rate 17 /min Height 69 inches 5'9" Weight 215.00 lb BMI (Body Mass Index) 31.7 kg/m2 BSA (Body Surface Area) 2.13 m2 [place] body weight in kilograms 73 kg O2 % BldC Oximetry 94 % 02/08/2019 4:18pm BP Systolic 153 mmHg BP Diastolic 77 mmHg Body Temperature 98.7 F Heart Rate 63 /min Height 69 inches 5'9" Weight 218.00 lb BMI (Body Mass Index) 32.2 kg/m2 BSA (Body Surface Area) 2.14 m2 [place] body weight in kilograms 73 kg O2 % BldC Oximetry 97 % 01/18/2019 2:54pm BP Systolic Sitting Right Arm 126 mmHg BP Diastolic Sitting Right Arm 70 mmHg Body Temperature 98.4 F Heart Rate 68 /min Respiratory Rate 20 /min Height 69 inches 5'9" Weight 217.00 lb BMI (Body Mass Index) 32.0 kg/m2 BSA (Body Surface Area) 2.14 m2 [place] body weight in kilograms 73 kg O2 % BldC Oximetry 96 % 01/13/2019 4:30pm BP Systolic Sitting Left Arm 139 mmHg BP Diastolic Sitting Left Arm 66 mmHg Heart Rate 68 /min Respiratory Rate 14 /min Height 69 inches 5'9" Weight 216.38 lb BMI (Body Mass Index) 31.9 kg/m2 BSA (Body Surface Area) 2.14 m2 [place] body weight in kilograms 73 kg O2 % BldC Oximetry 94 % 12/14/2018 3:22pm BP Systolic Sitting Left Arm 132 mmHg BP Diastolic Sitting Left Arm 68 mmHg Body Temperature 98.0 F Heart Rate 75 /min reg Respiratory Rate 24 /min Height 69 inches 5'9" Weight 219.00 lb BMI (Body Mass Index) 32.3 kg/m2 BSA (Body Surface Area) 2.15 m2 [place] body weight in kilograms 73 kg O2 % BldC Oximetry 95 % ra 12/08/2018 2:55pm BP Systolic Sitting Left Arm 136 mmHg BP Diastolic Sitting Left Arm 51 mmHg Heart Rate 72 /min Respiratory Rate 16 /min Height 69 inches 5'9" Weight 218.00 lb BMI (Body Mass Index) 32.2 kg/m2 BSA (Body Surface Area) 2.14 m2 [place] body weight in kilograms 73 kg O2 % BldC Oximetry 95 % 11/30/2018 2:55pm BP Systolic Sitting Right Arm 148 mmHg 130/68 on recheck. BP Diastolic Sitting Right Arm 64 mmHg 130/68 on recheck. Body Temperature 99.7 F Heart Rate 67 /min reg Respiratory Rate 30 /min Height 69 inches 5'9" Weight 220.00 lb BMI (Body Mass Index) 32.5 kg/m2 BSA (Body Surface Area) 2.15 m2 [place] body weight in kilograms 73 kg O2 % BldC Oximetry 96 % ra 11/03/2018 3:15pm BP Systolic Sitting Right Arm 144 mmHg BP Diastolic Sitting Right Arm 82 mmHg Body Temperature 99.0 F Heart Rate 65 /min Respiratory Rate 18 /min Height 69 inches 5'9" Weight 221.00 lb BMI (Body Mass Index) 32.6 kg/m2 BSA (Body Surface Area) 2.16 m2 [place] body weight in kilograms 73 kg O2 % BldC Oximetry 96 % ra 10/20/2018 3:22pm BP Systolic Sitting Right Arm 126 mmHg BP Diastolic Sitting Right Arm 78 mmHg Body Temperature 99.8 F Heart Rate 64 /min Respiratory Rate 24 /min Height 69 inches 5'9" Weight 221.00 lb BMI (Body Mass Index) 32.6 kg/m2 BSA (Body Surface Area) 2.16 m2 [place] body weight in kilograms 73 kg O2 % BldC Oximetry 96 % 10/11/2018 1:02pm BP Systolic 194 mmHg BP Diastolic 72 mmHg Body Temperature 98.8 F Heart Rate 60 /min Respiratory Rate 18 /min Height 69 inches 5'9" Weight 220.00 lb BMI (Body Mass Index) 32.5 kg/m2 BSA (Body Surface Area) 2.15 m2 [place] body weight in kilograms 73 kg O2 % BldC Oximetry 95 % 08/23/2018 2:49pm BP Systolic Sitting Left Arm 148 mmHg BP Diastolic Sitting Left Arm 60 mmHg Heart Rate 82 /min Respiratory Rate 18 /min Height 69 inches 5'9" Weight 223.00 lb BMI (Body Mass Index) 32.9 kg/m2 BSA (Body Surface Area) 2.16 m2 [place] body weight in kilograms 73 kg O2 % BldC Oximetry 93 % 07/20/2018 2:45pm BP Systolic 148 mmHg recheck 129/75 BP Diastolic 66 mmHg recheck 129/75 Body Temperature 96.9 F Heart Rate 64 /min Respiratory Rate 18 /min Height 69 inches 5'9" Weight 215.12 lb BMI (Body Mass Index) 31.8 kg/m2 BSA (Body Surface Area) 2.13 m2 [place] body weight in kilograms 73 kg O2 % BldC Oximetry 96 % 07/01/2018 3:32pm BP Systolic Sitting Left Arm 144 mmHg BP Diastolic Sitting Left Arm 70 mmHg Heart Rate 64 /min Respiratory Rate 16 /min Height 69 inches 5'9" Weight 218.00 lb BMI (Body Mass Index) 32.2 kg/m2 BSA (Body Surface Area) 2.14 m2 [place] body weight in kilograms 73 kg 06/03/2018 3:39pm BP Systolic Sitting Left Arm 140 mmHg BP Diastolic Sitting Left Arm 64 mmHg Heart Rate 70 /min Respiratory Rate 16 /min Height 69 inches 5'9" Weight 215.00 lb BMI (Body Mass Index) 31.7 kg/m2 BSA (Body Surface Area) 2.13 m2 [place] body weight in kilograms 73 kg O2 [...] kg/m2 BSA (Body Surface Area) 2.14 m2 [place] body weight in kilograms 73 kg O2 % BldC Oximetry 97 % Ra 04/12/2018 3:37pm BP Systolic Sitting Left Arm 127 mmHg BP Diastolic Sitting Left Arm 68 mmHg Body Temperature 99.0 F Heart Rate 78 /min Respiratory Rate 18 /min Height 69 inches 5'9" Weight 218.00 lb BMI (Body Mass Index) 32.2 kg/m2 BSA (Body Surface Area) 2.14 m2 [place] body weight in kilograms 73 kg O2 % BldC Oximetry 94 % repeat 98% Ra 04/02/2018 2:26pm BP Systolic 169 mmHg BP Diastolic 70 mmHg Body Temperature 97.8 F Heart Rate 68 /min Respiratory Rate 18 /min Height 69 inches 5'9" Weight 217.50 lb BMI (Body Mass Index) 32.1 kg/m2 BSA (Body Surface Area) 2.14 m2 [place] body weight in kilograms 73 kg O2 % BldC Oximetry 96 % 02/17/2018 2:29pm BP Systolic Sitting Left Arm 130 mmHg BP Diastolic Sitting Left Arm 58 mmHg Heart Rate 70 /min Respiratory Rate 18 /min Height 69 inches 5'9" Weight 216.00 lb BMI (Body Mass Index) 31.9 kg/m2 BSA (Body Surface Area) 2.13 m2 [place] body weight in kilograms 73 kg 01/15/2018 2:13pm BP Systolic Sitting Right Arm 154 mmHg BP Diastolic Sitting Right Arm 72 mmHg Heart Rate 67 /min Respiratory Rate 16 /min Height 69 inches 5'9" Weight 218.00 lb BMI (Body Mass Index) 32.2 kg/m2 BSA (Body Surface Area) 2.14 m2 [place] body weight in kilograms 73 kg 12/30/2017 10:30am BP Systolic Sitting Left Arm 160 mmHg BP Diastolic Sitting Left Arm 86 mmHg Heart Rate 60 /min Respiratory Rate 16 /min Height 69 inches 5'9" Weight 216.00 lb BMI (Body Mass Index) 31.9 kg/m2 BSA (Body Surface Area) 2.13 m2 [place] body weight in kilograms 73 kg 12/21/2017 11:10am BP Systolic 142 mmHg BP Diastolic 80 mmHg Height 69 inches 5'9" Weight 215.00 lb BMI (Body Mass Index) 31.7 kg/m2 BSA (Body Surface Area) 2.13 m2 [place] body weight in kilograms 73 kg 12/07/2017 10:50am BP Systolic 179 mmHg BP Diastolic 79 mmHg Heart Rate 70 /min Respiratory Rate 18 /min Height 69 inches 5'9" Weight 210.00 lb BMI (Body Mass Index) 31.0 kg/m2 BSA (Body Surface Area) 2.11 m2 [place] body weight in kilograms 73 kg 11/16/2017 2:31pm BP Systolic 148 mmHg BP Diastolic 88 mmHg Height 69 inches 5'9" Weight 210.00 lb BMI (Body Mass Index) 31.0 kg/m2 BSA (Body Surface Area) 2.11 m2 [place] body weight in kilograms 73 kg 10/22/2017 3:28pm BP Systolic Sitting Left Arm 171 mmHg BP Diastolic Sitting Left Arm 79 mmHg Body Temperature 98.3 F Heart Rate 64 /min Respiratory Rate 18 /min Height 69 inches 5'9" Weight 216.00 lb BMI (Body Mass Index) 31.9 kg/m2 BSA (Body Surface Area) 2.13 m2 [place] body weight in kilograms 73 kg O2 % BldC Oximetry 97 % 10/16/2017 9:10am BP Systolic Sitting Left Arm 162 mmHg recheck 168/64 BP Diastolic Sitting Left Arm 71 mmHg recheck 168/64 Heart Rate 66 /min Respiratory Rate 16 /min Height 69 inches 5'9" Weight 212.00 lb BMI (Body Mass Index) 31.3 kg/m2 BSA (Body Surface Area) 2.12 m2 [place] body weight in kilograms 73 kg 10/14/2017 10:48am BP Systolic 128 mmHg BP Diastolic 70 mmHg Height 69 inches 5'9" Weight 213.00 lb BMI (Body Mass Index) 31.5 kg/m2 BSA (Body Surface Area) 2.12 m2 [place] body weight in kilograms 73 kg 10/05/2017 9:17am BP Systolic 142 mmHg BP Diastolic 80 mmHg Height 69 inches 5'9" Weight 213.00 lb BMI (Body Mass Index) 31.5 kg/m2 BSA (Body Surface Area) 2.12 m2 [place] body weight in kilograms 73 kg 09/30/2017 8:50am BP Systolic Sitting Left Arm 160 mmHg BP Diastolic Sitting Left Arm 76 mmHg Heart Rate 66 /min Respiratory Rate 16 /min Height 69 inches 5'9" Weight 217.00 lb BMI (Body Mass Index) 32.0 kg/m2 BSA (Body Surface Area) 2.14 m2 [place] body weight in kilograms 73 kg 09/11/2017 [...] kg/m2 BSA (Body Surface Area) 2.10 m2 [place] body weight in kilograms 73 kg 03/17/2017 9:44am BP Systolic Sitting Right Arm 140 mmHg BP Diastolic Sitting Right Arm 80 mmHg Height 69 inches 5'9" Weight 201.00 lb BMI (Body Mass Index) 29.7 kg/m2 BSA (Body Surface Area) 2.07 m2 [place] body weight in kilograms 73 kg 01/09/2017 [...] 1 W/Automated [address] [place] [address] [phone] Red Blood Count 4.29 M/uL N 4.20-5.80 [...] 33.0-73.0 Lymph % 34.2 % N 20.0-42.0 [place] % 11.8 % High 0.0-10.0 Eo% 4.1 % N 0.0-6.6 Bas% 0.6 % N 0.0-1.1 Immature Grans 0.0 % N 0.0-5.0 NRBC % 0.0 /100WBC < 10/ 100 WBC Neut# 2.38 K/uL N 1.8-7.0 Lymph # 1.65 K/uL N 1.0-4.0 [place] # 0.57 K/uL N 0.0-0.8 Eos # 0.20 K/uL N 0.0-0.5 Baso # 0.03 K/uL N 0.0-0.1 Immature Grans Absolute 0.00 K/uL NRBC # 0.00 K/uL Comprehensive Metabolic 01/18/2019 [facility] Glucose 99 mg/dL N 74-[address] [place] [address] [phone] BUN 16 mg/dL N 7-18 Creatinine 1.1 [...] Phosphatase 75 U/L N 45-117 Glycohemoglobin 01/18/2019 [facility] Glycohemoglobin 6.8 % High 4.2-6.[address] (A1c) [place] [address] [phone] eAG 148 mg/dL Laboratory test 01/18/2019 [facility] Vitamin 28.7 Low 30.0-100.0 [address] D,25-Hydroxy ng/mL [place], [place] [id number] [phone] LDL Cholesterol 01/18/2019 [facility] Cholesterol 112 <200 [address] mg/dL [place], [place] [address] [phone] Triglycerides 257 mg/dL High <150 6 HDL Cholesterol 24 mg/dL Low >40 7 LDL-Cholesterol 37 mg/dL < 100 8 HIV Screen 4TH 10/30/2018 [facility] HIV Screen Non Non 9, 10 Gen Reflex [address] 4[address] [place] [address] Wljgkufbrf [phone] wRfx Hepatitis 10/30/2018 [facility] Hepatitis A Negative Negative Evaluation [address] Antibody IgM [place], [place] [id number] [phone] HBsAg Screen [Ref Lab] Negative Negative Hepatitis B Core IgM Negative Negative HCV Signal/Cutoff ratio 0.1 s/corat 0.0-0.9 11 Laboratory test 10/30/2018 [facility] Gamma Glutamyl 58 U/L N 5-[address] [place] [address] [phone] Laboratory test 10/20/2018 [facility] Urine Creatinine 99 mg/dL finding [address] Random [place], [place] [id number] [phone] Urine Dipstick 10/20/2018 [facility] Ua Color yellow Yellow Ua Clarity clear Clear Ua Leuko negative Negative Ua Nitrite negative Negative Ua Urobilinogen negative Low 0.2 - 1.0 E.U./dL Ua Protein negative Negative Ua PH 6.0 Low 6.5-7.5 Ua Blood negative Negative Ua Specific [place] 1.025 1.010-1.030 Ua Ketones negative Negative Ua Bilirubin negative Negative Ua Glucose 1+ High Negative Comprehensive 10/20/2018 [facility] Glucose 174 mg/dL High 74-106 12 Metabolic Panel [address] [place], [place] [id number] [phone] BUN 20 mg/dL High 7-18 Creatinine 1.2 [...] Phosphatase 88 U/L N 45-117 Glycohemoglobin 10/20/2018 [facility] Glycohemoglobin 8.2 % High 4.2-6.[address] (A1c) [place] [address] [phone] eAG 189 mg/dL Laboratory 10/20/2018 [facility] Vitamin 8.7 Low 30.0-100.0 15 test finding [address] D,25-Hydroxy ng/[place] [address] [phone] CBC 10/20/2018 [facility] White Blood 5.6 K/uL N 3.4-10.5 W/Automated [address] [place] [address] [phone] Red Blood Count 4.72 M/uL N 4.20-5.80 [...] 33.0-73.0 Lymph % 29.8 % N 20.0-42.0 [place] % 9.3 % N 0.0-10.0 Eo% 1.6 % N 0.0-6.6 Bas% 0.4 % N 0.0-1.1 Neut# 3.31 K/uL N 1.8-7.0 Lymph # 1.67 K/uL N 1.0-4.0 [place] # 0.52 K/uL N 0.0-0.8 Eos # 0.09 K/uL N 0.0-0.5 Baso # 0.02 K/uL N 0.0-0.1 LDL Cholesterol Profile 10/20/2018 [facility] Cholesterol 123 mg/dL <200 16 [address] [place], [place] [id number] [phone] Triglycerides 466 mg/dL High <150 17 HDL Cholesterol 21 mg/dL Low >40 18 LDL-Cholesterol TNP mg/dL < 100 19 LDL Cholesterol Profile 07/20/2018 [facility] Cholesterol 81 mg/dL <200 20 [address] [place], [place] [address] [phone] Triglycerides 204 mg/dL High <150 21 HDL Cholesterol 17 mg/dL Low >40 22 LDL-Cholesterol 23 mg/dL < 100 23 Basic Metabolic Panel 07/20/2018 [facility] Glucose 143 mg/dL High 74-106 [address] [place], [place] [address] [phone] BUN 23 mg/dL High 7-18 Creatinine 1.2 mg/dL N 0.6-1.3 Glom Filtration Rate, Estimate >60 mL/min >60 If >60 mL/min >60 24 BUN/Creat 19.1 ratio Sodium 143 mmol/L N 136-145 Potassium 4.5 mmol/L N 3.5-5.1 Chloride 108 mmol/L High 98-107 Carbon Dioxide 29 mmol/L N 21-32 Anion Gap 6 mEq/L Low 8-16 Calcium 8.1 mg/dL Low 8.5-10.1 Glycohemoglobin 07/20/2018 [facility] Glycohemoglobin 6.8 % High 4.2-6.3 25 A1c [address] [facility] (A1c) [place], [place] [id number] [phone] eAG 148 mg/dL Comprehensive 04/09/2018 [facility] Glucose 204 mg/dL High 74-106 26 Metabolic Panel [address] [place] [address] [phone] BUN 17 mg/dL N 7-18 Creatinine 1.1 [...] Phosphatase 81 U/L N 45-117 Glycohemoglobin 04/09/2018 [facility] Glycohemoglobin 7.9 % High 4.2-6.3 28 A1c [address] [facility] [place] (A1c) [place] [address] [phone] eAG 180 mg/dL LDL Cholesterol Profile 04/09/2018 [facility] Cholesterol 100 mg/dL <200 29 [address] [place] [address] [phone] Triglycerides 386 mg/dL High <150 30 HDL Cholesterol 21 mg/dL Low >40 31 LDL-Cholesterol 2 mg/dL < 100 32 Microalb/Creat 04/09/2018 [facility] Microalbumin,Urine 7.7 mg/L < 20.0 Ratio,Random [address] [place] [address] [phone] Microalbumin/Creatinine Ratio 16.7 ug/mgCrt < 30.0 Urine Creatinine Conc 46 mg/dL Urine Dipstick 01/15/2018 [facility] Ua Color yellow Yellow Ua Clarity clear Clear Ua Leuko n Negative Ua Nitrite n Negative Ua Urobilinogen .2 0.2 - 1.0 E.U./dL Ua Protein n Negative Ua PH 7 6.5-7.5 Ua Blood n Negative Ua Specific [place] 1.015 1.010-1.030 Ua Ketones n Negative Ua [...] 6.1 mg/L < 20.0 Ratio,Random [address] [place] [address] [phone] Microalbumin/Creatinine Ratio 13.6 ug/mgCrt < 30.0 Urine Creatinine Conc 45 mg/dL Potassium SerPl-sCnc 12/29/2017 N2N/CCD Import Potassium 4.2 3.5-5.1 SerPl-sCnc RDW RBC Auto 12/29/2017 N2N/CCD Import RDW RBC Auto 42.5 36-51 RDW RBC Auto-Rto 12/29/2017 N2N/CCD Import RDW RBC Auto-Rto 13.5 11.6- 15.8 Serum carbon dioxide 12/29/2017 N2N/CCD Import Serum carbon 31 21-32 measurement dioxide measurement Serum or plasma 12/29/2017 N2N/CCD Import Serum or plasma 3.5 3.4-5.0 albumin measurement albumin measurement (mass/volume) (mass/volume) Serum or plasma 12/29/2017 N2N/CCD Import Serum or plasma 83 45-117 alkaline phosphatase alkaline measurement ( phosphatase measurement (enzymatic activity/volume) Serum or plasma 12/29/2017 [...] urea 12/29/2017 N2N/CCD Import Serum or plasma 19 High 7- 18 nitrogen measurement urea nitrogen (mass/vo measurement (mass/volume) Serum sodium 12/29/2017 N2N/Flipboard Import Serum sodium 139 136-145 measurement measurement Comprehensive 12/29/2017 [facility] Glucose 221 High 74-106 33 Metabolic Panel [address] mg/[place] [address] [phone] BUN 19 mg/dL High 7-18 Creatinine 1.2 mg/dL N 0.6-1.3 Glom Filtration Rate, Estimate >60 mL/min >60 If >60 mL/min >60 34 BUN/Creat 15.8 ratio Sodium 139 mmol/L N [...] 12-78 Alkaline Phosphatase 83 U/L N 45-117 Glycohemoglobin 12/29/2017 [facility] Glycohemoglobin 7.7 % High 4.2-6.3 [address] (A1c) [place], [place] [id number] [phone] eAG 174 mg/dL LDL Cholesterol Profile 12/29/2017 [facility] Cholesterol 107 mg/dL <[address] [place], [place] [address] [phone] Triglycerides 299 mg/dL High <150 37 HDL Cholesterol 22 mg/dL Low >40 38 LDL-Cholesterol 25 mg/dL < 100 39 CBS W/Automated Diff 12/29/2017 [facility] White Blood 4.4 K/uL N 3.4-10.[address] Count [place], [place] [address] [phone] Red Blood Count 4.68 M/uL N 4.20-5.80 [...] 33.0-73.0 Lymph % 33.4 % N 20.0-42.0 [place] % 11.7 % High 0.0-10.0 Eo% 2.7 % N 0.0-6.6 Bas% 0.2 % N 0.0-1.1 Neut# 2.27 K/uL N 1.8-7.0 Lymph # 1.46 K/uL N 1.0-4.0 [place] # 0.51 K/uL N 0.0-0.8 Eos # [...] corpuscular corpuscular hemoglobin hemoglobin concentration measurement (mass/volume) Neutrophils/leuk 12/29/2017 N2N/CCD Import Neutrophils/leuk 52.0 33.0- [...] 4.20-5.80 automated count automated count (number/volume) (number/volume) Automated 12/29/2017 N2N/CCD Import Automated 87.8 80.0-96.0 erythrocyte mean erythrocyte mean corpuscular volume corpuscular volume BUN/Creat SerPl 12/29/2017 N2N/CCD Import BUN/Creat SerPl 15.8 Basophils/leuk NFr 12/29/2017 N2N/CCD Import Basophils/leuk NFr 0.2 0.0- 1.1 Bld Auto Bld Auto Capillary blood 11/05/2017 N2N/CCD Import Capillary blood 144 High 70- 110 glucose glucose measurement by measurement by glucometer glucometer (mass/volume) Basic Metabolic 10/30/2017 [facility] Glucose 202 High 74-106 [address] mg/[place] [address] [phone] BUN 20 mg/dL High 7-18 Creatinine 1.1 mg/dL N 0.6-1.3 Glom Filtration Rate, Estimate >60 mL/min >60 If >60 mL/min >60 41 BUN/Creat 18.1 ratio Sodium 139 mmol/L N 136-145 Potassium 4.4 mmol/L N 3.5-5.1 Chloride 105 mmol/L N 98-107 Carbon Dioxide 27 mmol/L N 21-32 Anion Gap 7 mEq/L Low 8-16 Calcium 9.0 mg/dL N 8.5-10.1 Liver Function Tests 10/30/2017 [facility] Total Protein 7.8 g/dL N 6.4-8.[address] [place] [address] [phone] Albumin 3.8 g/dL N 3.4-5.0 Globulin 4.0 g/dL N 1.9-4.3 Alb/Glob 1.0 ratio Bilirubin,Total 0.3 mg/dL N 0.2-1.0 Bilirubin,Direct < 0.1 mg/dL N 0.0-0.2 Bilirubin,Indirect 0.2 mg/dL N 0.0-0.9 Sgot/Ast 70 U/L High 15-37 SGPT/Alt 113 U/L High 12-78 Alkaline Phosphatase 73 U/L N 45-117 Laboratory test 10/30/2017 [facility] Act Partial 24.9 seconds N 23.4-35.0 [address] [place] [address] [phone] Protime 10/30/2017 [facility] Protime 12.8 seconds N 12.0-14.[address] [place] [address] [phone] Inr 1.0 N 0.9-1.1 43 CBC 10/30/2017 [facility] White Blood Count 5.2 K/uL N 3.4-10.[address] [place] [address] [phone] Red Blood Count 4.93 M/uL N 4.20-5.80 [...] bilirubin measurement (ma measurement (mass/volume) Comprehensive 10/12/2017 [facility] Glucose 185 High 74-106 44 Metabolic Panel [address] mg/[place] [address] [phone] BUN 17 mg/dL N 7-18 Creatinine 1.2 [...] Phosphatase 58 U/L N 45-117 Glycohemoglobin 10/12/2017 [facility] Glycohemoglobin 7.2 % High 4.2-6.[address] (A1c) [place] [address] [phone] eAG 160 mg/dL Microalb/Creat 10/12/2017 [facility] Microalbumin,Urine 12.2 < 20.0 Ratio,Random [address] mg/[place] [address] [phone] Microalbumin/Creatinine Ratio 8.0 ug/mgCrt < 30.0 Urine Creatinine Conc 153 mg/dL LDL Cholesterol Profile 10/12/2017 [facility] Cholesterol 111 mg/dL <200 47 [address] [place] [address] [phone] Triglycerides 163 mg/dL High <150 48 HDL Cholesterol 25 mg/dL Low >40 49 LDL-Cholesterol 53 mg/dL < 100 50 Laboratory test 10/09/2017 [facility] Triglycerides 129 mg/dL <150 51, 52 finding [address] [place] [address] [phone] Hepatitis C Antibody < 0.1 s/corat 0.0-0.9 53 Ceruloplasmin 10/09/2017 [facility] Ceruloplasmin 24.0 mg/dL 16.0-31.0 54 [address] [place] [address] [phone] Height 5 9 Weight 217 Ramirez Fibrosure 10/09/2017 [facility] Ramirez Fibrosis 0.29 High 0.00-0.[address] [place] [address] [phone] Ramirez Fibrosis Stage (SEE NOTE) 55 Ramirez Steatosis Score 0.76 High 0.00-0.30 Ramirez Steatosis Grade (SEE NOTE) 56 Ramirez Score 0.50 0.25 Ramirez Grade (SEE NOTE) 57 Height 60 Inches . Weight Measured 217 LBS . Bpozy-3-Qbxxpuuuqouvl 224 mg/dL 110-276 Haptoglobin 234 mg/dL High [...] N2N/CCD Import Fibrosis score 0.29 High 0.00- 0.2 1 Glucose [Mass/volume] 10/09/2017 N2N/CCD Import Glucose [Mass/volume] 159 High 65-99 in Serum or Plasma in Serum or Plasma Necroinflammatory 10/09/2017 N2N/CCD Import Necroinflammatory 0.50 0.25 activity score activity score Unloinc 10/09/2017 N2N/CCD Import Unloinc 0.76 High 0.00-0.3 0 Unloinc See Note 64 Unloinc See Note 65 Unloinc See Note 66 Unloinc See Note 67 Service comment 10/09/2017 N2N/CCD Import Service comment See Note 68 Serum or plasma 10/09/2017 N2N/CCD Import Serum or plasma 0.3 0.0- total bilirubin total bilirubin 1.2 measurement (mass/ measurement (mass/volume) Serum or plasma 10/09/2017 N2N/CCD Import Serum or plasma 234 High 34-2 haptoglobin haptoglobin 00 measurement measurement (mass/volu (mass/volume) Serum or plasma 10/09/2017 N2N/CCD Import Serum or plasma 32 0-65 gamma glutamyl gamma glutamyl transferase measure transferase measurement (enzymatic activity/volume) Serum or plasma 10/09/2017 N2N/CCD Import Serum or plasma 24.0 16.0 ceruloplasmin ceruloplasmin -31. measurement (mass/vo measurement 0 (mass/volume) Serum or plasma 10/09/2017 N2N/CCD Import Serum or plasma 94 Low 101- apolipoprotein A-I apolipoprotein A-I 178 measurement (ma measurement (mass/volume) Serum or plasma 10/09/2017 N2N/CCD Import Serum or plasma 224 110- dqrih-0-zlsmekeqnfja uhbti-8-rmhnpjpajwyl 276 n measurement n measurement (mass/volume) Serum or plasma 10/09/2017 N2N/CCD Import Serum or plasma 55 0-55 alanine alanine aminotransferase aminotransferase measureme measurement with P-5'-P (enzymatic activity/volume) Microalb/Creat 06/15/2017 [facility] Microalbumin/Creatin TNP < 69, 70 Ratio,Random [address] ine Ratio ug/mgCrt 30.0 [place] [address] [phone] Urine Creatinine Conc 29 mg/dL Microalbumin,Random 06/15/2017 [facility] Microalbumin,Urine < 5.0 < Urine [address] mg/L 20.0 [place] [address] [phone] Comprehensive 06/12/2017 [facility] Glucose 116 High 74-10 71 Metabolic Panel [address] mg/dL 6 [place] [address] [phone] BUN 16 mg/dL N 7-18 Creatinine 1.2 [...] U/L N 45-117 CBS W/Automated Diff 06/12/2017 [facility] White Blood 4.2 K/uL N 3.4-10.[address] [place] [address] [phone] Red Blood Count 4.82 M/uL N 4.20-5.80 [...] 33.0-73.0 Lymph % 37.1 % N 20.0-42.0 [place] % 11.2 % High 0.0-10.0 Eo% 2.1 % N 0.0-6.6 Bas% 0.5 % N 0.0-1.1 Neut# 2.06 K/uL N 1.8-7.0 Lymph # 1.56 K/uL N 1.0-4.0 [place] # 0.47 K/uL N 0.0-0.8 Eos # 0.09 K/uL N 0.0-0.5 Baso # 0.02 K/uL N 0.0-0.1 LDL Cholesterol Profile 06/12/2017 [facility] Cholesterol 103 mg/dL <[address] [place] [address] [phone] Triglycerides 116 mg/dL <150 74 HDL Cholesterol 29 mg/dL Low >40 75 LDL-Cholesterol 51 mg/dL < 100 76 Glycohemoglobin A1c 06/12/2017 [facility] Glycohemoglobin 6.0 % N 4.2-6.3 77 [address] (A1c) [place] [address] [phone] eAG 126 mg/dL Poct glucose 02/03/2017 N2N/CCD [...] Performed by: Performed By Blood Gas w [facility] Clinical Lytes Staff Poc Art O2 Sat [...] Expiration Date 02/01/2017 Testing site Performed At [address] [place] [address] Transfusion status Ok To Transfuse Transfusion status Ok To Transfuse Transfusion status Ok To Transfuse Transfusion status Ok To Transfuse Unit Division 0 1 Unit Division 0 1 Unit Division 0 1 Unit Division 0 1 Unit Number [id number] Unit Number [id number] Unit Number [id number] Unit Number [id number] Unit status Rel From Alloc Unit status Rel From Alloc Unit status Rel From Alloc Unit status Rel From Alloc Type and screen 01/15/2017 N2N/CCD Import Antibody Screen Negative Blood bank comment See Notes Patient Abo/Rh B Positive Specimen Expiration Date 01/30/2017 Testing site Performed At [address] [place] [id number] CBC 01/15/2017 N2N/CCD Import Hematocrit 44.6 % [...] 1 Protime 10.1 s 9.2 - 11.9 Comprehensive 11/13/2016 [facility] Glucose 201 mg/dL High 74-106 78 Metabolic Panel [address] [place], [place] [id number] [phone] BUN 21 mg/dL High 7-18 Creatinine 1.3 [...] U/L N 45-117 LDL Cholesterol Profile 11/13/2016 [facility] Cholesterol 90 mg/dL <[address] [place] [address] [phone] Triglycerides 320 mg/dL High <150 81 HDL Cholesterol 24 mg/dL Low >40 82 LDL-Cholesterol 2 mg/dL < 100 83 Glycohemoglobin 11/13/2016 [facility] Glycohemoglobin 7.8 % High 4.2-6.3 [address] (A1c) [place] [address] [phone] eAG 177 mg/dL CBS W/Automated Diff 11/13/2016 [facility] White Blood 5.1 K/uL N 3.4-10.[address] [place] [address] [phone] Red Blood Count 4.87 M/uL N 4.20-5.80 [...] 33.0-73.0 Lymph % 37.6 % N 20.0-42.0 [place] % 10.6 % High 0.0-10.0 Eo% 2.2 % N 0.0-6.6 Bas% 0.6 % N 0.0-1.1 Neut# 2.50 K/uL N 1.8-7.0 Lymph # 1.92 K/uL N 1.0-4.0 [place] # 0.54 K/uL N 0.0-0.8 Eos # 0.11 K/uL N 0.0-0.5 Baso # 0.03 K/uL N 0.0-0.1 Glycohemoglobin 07/11/2016 [facility] Glycohemoglobin 8.0 % High 4.2-6.3 85, A1c [address] (A1c) 86 [place], [place] [id number] [phone] eAG 183 mg/dL N LDL Cholesterol Profile 07/11/2016 [facility] Cholesterol 105 mg/dL N <[address] [place], [place] [id number] [phone] Triglycerides 286 mg/dL High <150 88 HDL Cholesterol 21 mg/dL Low >40 89 LDL-Cholesterol 27 mg/dL N < 100 90 CBS W/Automated Diff 07/11/2016 [facility] White Blood 4.2 K/uL N 3.4-10.[address] Count [place], [place] [address] [phone] Red Blood Count 4.73 M/uL N 4.20-5.80 [...] 33.0-73.0 Lymph % 37.3 % N 17.0-56.0 [place] % 13.5 % High 0.0-10.0 Eo% 2.1 % N 0.0-5.0 Bas% 0.5 % N 0.1-1.0 Neut# 1.96 K/uL N 1.8-7.0 Lymph # 1.57 K/uL Low 1.8-7.0 [place] # 0.57 K/uL N 0.0-0.8 Eos # 0.09 K/uL N 0.0-0.5 Baso # 0.02 K/uL Low 0.1-0.2 Comprehensive Metabolic 07/11/2016 [facility] Glucose 186 mg/dL High 74-106 Panel [address] [place], [place] [address] [phone] BUN 17 mg/dL N 7-18 Creatinine 1.2 mg/dL N 0.6-1.3 Glom Filtration Rate, Estimate >60 mL/min N >60 If >60 mL/min N >60 91 BUN/Creat 14.1 ratio N Sodium 140 mmol/L [...] 12-78 Alkaline Phosphatase 79 U/L N 45-117 Basic Metabolic Panel 11/22/2015 [facility] Glucose 123 mg/dL High 74-106 [address] [place] [address] [phone] BUN 22 mg/dL High 7-18 Creatinine 1.2 mg/dL 0.6-1.3 Glom Filtration Rate, Estimate >60 mL/min >60 If >60 mL/min >60 92 BUN/Creat 18.3 ratio Sodium 140 mmol/L 136-145 Potassium 4.0 mmol/L 3.5-5.1 Chloride 105 mmol/L 98-107 Carbon Dioxide 27 mmol/L 21-32 Anion Gap 8 mEq/L 8-16 Calcium 8.8 mg/dL 8.5-10.1 Laboratory test finding 11/24/2014 [facility] BUN 23 mg/dL High 7-18 [address] [place], [place] [address] [phone] Basic Metabolic Panel 11/20/2014 [facility] Glucose 109 mg/dL High 74-106 [address] [place], [place] [address] [phone] BUN 16 mg/dL 7-18 Creatinine 1.4 mg/dL High 0.6-1.3 Glom Filtration Rate, Estimate 56 mL/min >60 If >60 mL/min >60 93 BUN/Creat 11.4 ratio Sodium 139 mmol/L 136-145 Potassium 4.3 mmol/L 3.5-5.1 Chloride 107 mmol/L 98-107 Carbon Dioxide 28 mmol/L 21-32 Anion Gap 4 mEq/L Low 8-16 Calcium 9.0 mg/dL 8.5-10.1 Basic Metabolic Panel 07/31/2014 [facility] Glucose 149 mg/dL High 74-106 [address] [place] [address] [phone] BUN 13 mg/dL 7-18 Creatinine 1.1 mg/dL 0.6-1.3 Glom Filtration Rate, Estimate >60 mL/min >60 If >60 mL/min >60 94 BUN/Creat 11.8 ratio Sodium 138 mmol/L 136-145 Potassium 4.5 mmol/L 3.5-5.1 Chloride 106 mmol/L 98-107 Carbon Dioxide 23 mmol/L 21-32 Anion Gap 14 mEq/L 8-16 Calcium 9.2 mg/dL 8.5-10.1 Basic Metabolic Panel See Note 95 LDL Cholesterol 07/31/2014 [facility] Cholesterol 105 mg/dL < 200 96 Profile [address] [place] [address] [phone] Triglycerides 163 mg/dL < 150 97 HDL Cholesterol 22 mg/dL > 40 98 LDL-Cholesterol 50 mg/dL < 100 99 Glycohemoglobin 07/31/2014 [facility] Glycohemoglobin 6.9 % High 4.2-6.3 100 A1c [address] [facility] (A1c) [place] [address] [phone] eAG 151 mg/dL Liver Function Tests 07/31/2014 [facility] Total Protein 7.4 g/dL 6.4-8.2 [address] [place] [address] [phone] Albumin 3.6 g/dL 3.4-5.0 Globulin 3.8 g/dL 1.9-4.3 Alb/Glob 0.9 ratio Bilirubin,Total 0.4 mg/dL 0.2-1.0 Bilirubin,Direct < 0.1 mg/dL 0.0-0.2 Bilirubin,Indirect 0.3 mg/dL 0.0-0.9 Sgot/Ast 32 U/L 15-37 SGPT/Alt 69 U/L 12-78 Alkaline Phosphatase 74 U/L 45-117 LDL Cholesterol 04/08/2013 [facility] Cholesterol 97 mg/dL Low 120-200 Profile [address] [place] [address] [phone] Triglycerides 426 mg/dL High 16-231 HDL Cholesterol 19 mg/dL Low 29-83 LDL-Cholesterol See Note mg/dL 62-185 101 Liver Function Tests 04/08/2013 [facility] Total Protein 7.1 g/dL 6.3-8.0 [address] [place] [address] [phone] Albumin 3.7 g/dL 3.5-5.0 Globulin 3.4 g/dL 1.9-4.3 Alb/Glob 1.1 ratio Bilirubin,Total 0.3 mg/dL 0.2-1.2 Bilirubin,Direct < 0.1 mg/dL Low 0.1-0.4 Bilirubin,Indirect 0.2 mg/dL 0.0-0.9 Sgot/Ast 35 U/L 16-40 SGPT/Alt 65 U/L 30-65 Alkaline Phosphatase 99 U/L 50-136 Laboratory test 04/08/2013 [facility] Thyroid Stim 1.78 uIU/mL 0.49-4.67 finding [address] [facility] [place] [address] [phone] CBS W/Automated 04/08/2013 [facility] White Blood 6.0 K/uL 3.4-10.[address] [place] [address] [phone] Red Blood Count 4.82 M/uL 4.20-5.80 Hemoglobin [...] % 33.0-73.0 Lymph % 32.2 % 17.0-56.0 [place] % 10.5 % High 0.0-10.0 Eo% 1.0 % 0.0-5.0 Bas% 0.2 % 0.1-1.0 Neut# 3.36 K/uL 1.8-7.0 Lymph # 1.93 K/uL 1.2-4.0 [place] # 0.63 K/uL High 0.0-0.6 Eos # 0.06 K/uL 0.0-0.5 Baso # 0.01 K/uL Low 0.1-0.2 Basic Metabolic Panel 04/08/2013 [facility] Glucose 270 mg/dL High 76-[address] [place] [address] [phone] BUN 17 mg/dL 5-23 Creatinine 1.0 mg/dL 0.5-1.4 Glom Filtration Rate, Estimate >60 mL/min >60 If >60 mL/min >60 102 BUN/Creat 17.0 ratio Sodium 138 mmol/L 136-145 Potassium 4.2 mmol/L 3.5-5.1 Chloride 104 mmol/L 98-107 Carbon Dioxide 27 mEq/L 18-29 Anion Gap 11 mEq/L 8-16 Calcium 8.8 mg/dL 8.5-10.1 Glycohemoglobin 04/08/2013 [facility] Glycohemoglobin 11.9 % High 4.8-6.[address] (A1c) [place] [address] [phone] eAG 295 mg/dL Laboratory test 04/08/2013 [facility] Prostate 1.41 0.0-4.0 104 finding [address] [facility] Specific Antigen ng/[place] [address] [phone] LDL Cholesterol 12/20/2012 [facility] Cholesterol 129 mg/dL 120-200 Profile [address] [place] [address] [phone] Triglycerides 555 mg/dL High 16-231 HDL Cholesterol 23 mg/dL Low 29-83 LDL-Cholesterol See Note mg/dL 62-185 105 Liver Function Tests 12/20/2012 [facility] Total Protein 7.8 g/dL 6.3-8.0 [address] [place] [address] [phone] Albumin 3.7 g/dL 3.5-5.0 Globulin 4.1 g/dL 1.9-4.3 Alb/Glob 0.9 ratio Bilirubin,Total 0.3 mg/dL 0.2-1.2 Bilirubin,Direct < 0.1 mg/dL Low 0.1-0.4 Bilirubin,Indirect 0.2 mg/dL 0.0-0.9 Sgot/Ast 26 U/L 16-40 SGPT/Alt 68 U/L High 30-65 Alkaline Phosphatase 134 U/L 50-136 LDL Cholesterol 03/05/2012 [facility] Cholesterol 113 mg/dL Low 120-200 Profile [address] [place] [address] [phone] Triglycerides 342 mg/dL High 16-231 HDL Cholesterol 21 mg/dL Low 29-83 LDL-Cholesterol 24 mg/dL Low 62-185 CBC W/Automated Diff 03/05/2012 [facility] White Blood 6.2 K/uL 3.4-10.[address] [place] [address] [phone] Red Blood Count 4.78 M/uL 4.20-5.80 Hemoglobin [...] % 33.0-73.0 Lymph % 37.7 % 17.0-56.0 [place] % 11.4 % High 0.0-10.0 Eo% 1.5 % 0.0-5.0 Bas% 0.2 % 0.1-1.0 Neut# 3.03 K/uL 1.8-7.0 Lymph # 2.32 K/uL 1.2-4.0 [place] # 0.70 K/uL High 0.0-0.6 Eos # 0.09 K/uL 0.0-0.5 Baso # 0.01 K/uL Low 0.1-0.2 Comprehensive Metabolic 03/05/2012 [facility] Glucose 270 mg/dL High 76-115 Panel [address] [place] [address] [phone] BUN 15 mg/dL 5-23 Creatinine 1.2 mg/dL [...] Alkaline Phosphatase 76 U/L 50-136 Laboratory test 03/05/2012 [facility] Thyroid Stim 1.62 uIU/mL 0.49-4.67 finding [address] [place] [address] [phone] Prostate Specific Antigen 1.72 ng/mL 0.0-4.0 107 Laboratory test 09/01/2011 [facility] Thyroid Stim 1.69 uIU/mL 0.49-4.67 [address] [place] [address] [phone] Prostate Specific Antigen 1.50 ng/mL 0.0-4.0 108 Liver Function Tests 09/01/2011 [facility] Total Protein 7.4 g/dL 6.3-8.[address] [place] [address] [phone] Albumin 3.7 g/dL 3.5-5.0 Bilirubin,Total 0.4 mg/dL 0.2-1.2 Bilirubin,Direct 0.1 mg/dL 0.1-0.4 Bilirubin,Indirect 0.3 mg/dL 0.0-0.9 Sgot/Ast 44 U/L High 16-40 SGPT/Alt 82 U/L High 30-65 Alkaline Phosphatase 82 U/L 50-136 Globulin 3.7 g/dL 1.9-4.3 Alb/Glob 1.0 ratio CBC W/Automated Diff 09/01/2011 [facility] White Blood 5.8 K/uL 3.4-10.[address] [place] [address] [phone] Red Blood Count 4.98 M/uL 4.20-5.80 Hemoglobin 15.0 gm/dL 12.8-17.0 Hematocrit 44.7 % 38.0-48.0 Mean Cell Volume 89.8 fl 80.0-96.0 Mean Corpuscular HGB 30.1 pg 27.0-33.0 Mean Corpuscular HGB Conc 33.6 g/dL 31.7-36.0 Platelet Count 216 K/uL 150-400 Red Cell Distri Width %CV 12.8 % 11.6-15.8 Mean Platelet Volume 11.0 fL High 6.6-10.6 Neut% 52.9 % 33.0-73.0 Lymph % 34.7 % 17.0-56.0 [place] % 10.8 % High 0.0-10.0 Eo% 1.4 % 0.0-5.0 Bas% 0.2 % 0.1-1.0 Neut# 3.05 K/uL 1.8-7.0 Lymph # 2.00 K/uL 1.2-4.0 [place] # 0.62 K/uL High 0.0-0.6 Eos # 0.08 K/uL 0.0-0.5 Baso # 0.01 K/uL Low 0.1-0.2 Red Cell Distri Width SD 41.3 fl 36-51 LDL Cholesterol 09/01/2011 [facility] Cholesterol 124 mg/dL 120-200 Profile [address] [place] [address] [phone] Triglycerides 288 mg/dL High 16-231 HDL Cholesterol 20 mg/dL Low 29-83 LDL-Cholesterol 46 mg/dL Low 62-185 Liver Function Tests 09/12/2010 [facility] Total Protein 7.7 g/dL 6.3-8.0 [address] [place] [address] [phone] Albumin 3.8 g/dL 3.5-5.0 Bilirubin,Total 0.5 mg/dL 0.2-1.2 Bilirubin,Direct 0.1 mg/dL 0.1-0.4 Bilirubin,Indirect 0.4 mg/dL 0.0-0.9 Sgot/Ast 53 U/L High 16-40 SGPT/Alt 106 U/L High 30-65 Alkaline Phosphatase 109 U/L 50-136 Globulin 3.9 gm/dL 1.9-4.3 Alb/Glob 1.0 LDL Cholesterol 09/12/2010 [facility] Cholesterol 125 mg/dL 120-200 Profile [address] [place] [address] [phone] Triglycerides 324 mg/dL High 0-210 HDL Cholesterol 24 mg/dL Low 32-96 LDL-Cholesterol 36 mg/dL Low 62-185 Liver Function Tests 02/19/2010 [facility] Total Protein 7.5 g/dL 6.3-8.0 [address] [place] [address] [phone] Albumin 3.6 g/dL 3.5-5.0 Bilirubin,Total 0.3 mg/dL 0.2-1.2 Bilirubin,Direct 0.0 mg/dL Low 0.1-0.4 Bilirubin,Indirect 0.3 mg/dL 0.0-0.9 Sgot/Ast 32 U/L 16-40 SGPT/Alt 90 U/L High 30-65 Alkaline Phosphatase 111 U/L 50-136 Globulin 3.9 gm/dL 1.9-4.3 Alb/Glob 0.9 LDL Cholesterol 02/19/2010 [facility] Cholesterol 122 mg/dL 120-200 Profile [address] [place] [address] [phone] Triglycerides 357 mg/dL High 0-210 HDL Cholesterol [...] for more aggressive treatment of glycemia. The [place] Diabetes [employer] recommends that a primary goal of therapy should be a HbA1c of <7% and that physicians should re-evaluate the treatment regimen in patients with HbA1c values consistently >8%. 4 Vitamin D deficiency has been defined by the [place] of [employer] and an Endocrine Society practice guideline as a level of serum 25-OH vitamin D less than 20 ng/mL (1,2). The Endocrine Society went on to further define vitamin D insufficiency as a level between 21 and 29 ng/mL (2). 1. IOM ([place] of [employer]). 2010. Dietary reference intakes for calcium and D. [place]: The National Academies Press. 2. Max MF, Mk NC, Nacho JASSO, et al. Evaluation, treatment, and prevention of vitamin D deficiency: an Endocrine Society clinical practice guideline. JCEM. 2010; 96(7):1911-30. Performed at: RN - [facility] [address] [id number] Wafer Substrate Tester: Karyn Marrero MD, Phone: [phone] 5 Reference Guidelines*: Desirable: ........... < 200 [...] 9 R94.5 10 Performed at: RN - [facility] [address] [id number] Wafer Substrate Tester: Karyn Marrero MD, Phone: [phone] INFCE Result Units: s/co ratio Negative: < 0.8 Indeterminate: 0.8 - 0.9 Positive: > 0.9 The CDC recommends that a positive HCV antibody result be followed up with a HCV Nucleic Acid Amplification test (720141). Performed at: - [facility] [address] [id number] Wafer Substrate Tester: Karyn Marrero MD, Phone: [phone] 12 E78.5,E11.42 13 Note: Persistent reduction for [...] for more aggressive treatment of glycemia. The [place] Diabetes [employer] recommends that a primary goal of therapy should be a HbA1c of <7% and that physicians should re-evaluate the treatment regimen in patients with HbA1c values consistently >8%. 15 Vitamin D deficiency has been defined by the [place] of [employer] and an Endocrine Society practice guideline as a level of serum 25-OH vitamin D less than 20 ng/mL (1,2). The Endocrine Society went on to further define vitamin D insufficiency as a level between 21 and 29 ng/mL (2). 1. IOM ([place] of [employer]). 2010. Dietary reference intakes for calcium and D. [place]: The National Academies Press. 2. Max MF, Mk HAYS, Nacho JASSO, et al. Evaluation, treatment, and prevention of vitamin D deficiency: an Endocrine Society clinical practice guideline. JCEM. 2010; 96(7):1911-30. Performed at: RN - [facility] [address] [id number] Wafer Substrate Tester: Karyn Marrero MD, Phone: [phone] 16 Reference Guidelines*: Desirable: ........... < 200 [...] for more aggressive treatment of glycemia. The [place] Diabetes [employer] recommends that a primary goal [...] for more aggressive treatment of glycemia. The [place] Diabetes Association recommends that a primary goal [...] Cholesterol Education Program (NCEP) 33 E11.9,E78.5 34 Note: Persistent reduction for 3 months or more in an eGFR <60 mL/min/1.73 m2 defines CKD. Patients with eGFR values >/=60 mL/min/1.73 m2 may also have CKD if evidence of persistent proteinuria is present. The original MDRD equation for estimated GFR is not valid for patients less than 18 years of age. Additional information may be found at www.kdoqi.org. 35 Elevated levels of HbA1c suggest the need for more aggressive treatment of glycemia. The [place] Diabetes [employer] recommends that a primary goal of therapy should be a HbA1c of <7% and that physicians should re-evaluate the treatment regimen in patients with HbA1c values consistently >8%. 36 Reference Guidelines*: Desirable: ........... < 200 mg/dL Borderline High: ..... 200-239 mg/dL High: ................ >=240 mg/dL * The National Cholesterol Education Program (NCEP) 37 Reference Guidelines*: Normal: ............. < 150 mg/dL Borderline High: .... 150-199 mg/dL High: ............... 200-499 mg/dL Very High: .......... > 500 mg/dL * Source: National Cholesterol Education Program (NCEP) 38 Reference Guidelines*: Low HDL: ..... < 40 mg/dL Normal: ..... 40-60 mg/dL Desirable: ... > 60 mg/dL *The National Cholesterol Education Program(NCEP) 39 Reference Guidelines*: Optimal:........... <100 mg/dL Near Optimal....... 100-129 mg/dL Borderline High.... 130-159 mg/dL High............... 160-189 mg/dL Very High.......... >=190 mg/dL * Source: National Cholesterol Education Program (NCEP) 40 9;30 [facility] [place]17 [id number] Note: Persistent reduction for 3 months [...] for more aggressive treatment of glycemia. The [place] [employer] recommends that a primary goal [...] 0.8 - 0.9 Positive: > 0.9 The [facility] recommends that a positive HCV antibody result be followed up with a HCV Nucleic Acid Amplification test ([id number]). Performed at: [address] [id number] [employer] Substrate Tester: Karyn Marrero MD, Phone: [phone] Performed at: [address] [id number] [employer] Substrate Tester: Rigo Cabezas MD, Phone: [phone] Performed at: [address] [id number] [employer] Substrate Tester: Karyn Marrero MD, Phone: [phone] F1 - Portal fibrosis 56 S3 [...] developed and its performance characteristics determined by [employer]. It has not been cleared or approved by the Food and Drug Administration. The FDA has determined that such clearance or approval is not necessary. For questions regarding this report please contact customer service at . References: 1. Humberto Villalba al. Diagnostic Value of Biochemical Markers (FibroTest) [...] fatty liver disease. [facility] 2006; 6:34 doi:10.1186/[id number]-[id number]. 64 Quantitative results of 10 biochemicals in combination [...] identifying Ramirez and a specificity of 50%(3). 65 <0.21=Stage F0 - No fibrosis 0.21 - 0.27=Stage F0 - F1 0.27 - 0.31=Stage F1 - Portal fibrosis 0.31 - 0.48=Stage F1 - F2 0.48 - 0.58=Stage F2 - Bridging fibrosis with few septa 0.58 - 0.72=Stage F3 - Bridging fibrosis with many septa 0.72 - 0.74=Stage F3 - F4 >0.74=- Cirrhosis 66 < 0.30=S0 - No Steatosis 0.30 to 0.38=S0 - S1 0.38 to 0.48=S1 - Minimal Steatosis 0.48 to 0.57=S1 - S2 0.57 to 0.67=S2 - Moderate Steatosis 0.67 to 0.69=S2 - S3 > 0.69=S3 - Marked or Severe Steatosis 67 0.25=N0 - Not Ramirez 0.50=N1 - Borderline or probable Ramirez 0.75=N2 - Ramirez 67 Ramirez FibroSure is recommended for patients with suspected non-alcoholic fatty liver disease. It is not recommended for patients with other liver diseases. It is also not recommended in patients with Gilbert Disease, acute hemolysis, acute viral hepatitis, drug induced hepatitis, genetic liver disease, autoimmune hepatitis and/or extra- hepatic cholestasis. Any of these clinical situations may lead to inaccurate quantitative predictions of fibrosis. 69 E11.42 70 Valid ratio could not [...] for more aggressive treatment of glycemia. The [place] [employer] recommends that a primary goal [...] for more aggressive treatment of glycemia. The [place] [employer] recommends that a primary goal of therapy should be a HbA1c of <7% and that physicians should re-evaluate the treatment regimen in patients with HbA1c values consistently >8%. 85 E78.4 86 Elevated levels of HbA1c suggest the need for more aggressive treatment of glycemia. The [place] [employer] recommends that a primary goal of therapy should be a HbA1c of <7% and that physicians should re-evaluate the treatment regimen in patients with HbA1c values consistently >8%. 87 Reference Guidelines*: Desirable: ........... < 200 mg/dL Borderline High: ..... 200-239 mg/dL High: ................ >=240 mg/dL * The National Cholesterol Education Program (NCEP) 88 Reference Guidelines*: Normal: ............. < 150 mg/dL Borderline High: .... 150-199 mg/dL High: ............... 200-499 mg/dL Very High: .......... > 500 mg/dL * Source: National Cholesterol Education Program (NCEP) 89 Reference Guidelines*: Low HDL: ..... < 40 mg/dL Normal: ..... 40-60 mg/dL Desirable: ... > 60 mg/dL *The National Cholesterol Education Program(NCEP) 90 Reference Guidelines*: Optimal:........... <100 mg/dL Near Optimal....... 100-129 mg/dL Borderline High.... 130-159 mg/dL High............... 160-189 mg/dL Very High.......... >=190 mg/dL * Source: National Cholesterol Education Program (NCEP) 91 Note: Persistent reduction for 3 months or more in an eGFR <60 mL/min/1.73 m2 defines CKD. Patients with eGFR values >/=60 mL/min/1.73 m2 may also have CKD if evidence of persistent proteinuria is present. The original MDRD equation for estimated GFR is not valid for patients less than 18 years of age. Additional information may be found at www.kdoqi.org. 92 Note: Persistent reduction for 3 months [...] information may be found at www.kdoqi.org. 94 Note: Persistent reduction for 3 months or more in an eGFR <60 mL/min/1.73 m2 defines CKD. Patients with eGFR values >/=60 mL/min/1.73 m2 may also have CKD if evidence of persistent proteinuria is present. The original MDRD equation for estimated GFR is not valid for patients less than 18 years of age. Additional information may be found at www.kdoqi.org. 95 07/31/14 LAB.AD[facility] @ [facility] SHARE ALL RESULTES 96 Reference Guidelines*: Desirable: ........... < 200 mg/dL Borderline High: ..... 200-239 mg/dL High: ................ >=240 mg/dL * The National Cholesterol Education Program (NCEP) 97 Reference Guidelines*: Normal: ............. < 150 mg/dL Borderline High: .... 150-199 mg/dL High: ............... 200-499 mg/dL Very High: .......... > 500 mg/dL * Source: National Cholesterol Education Program (NCEP) 98 Reference Guidelines*: Low HDL: ..... < 40 mg/dL Normal: ..... 40-60 mg/dL Desirable: ... > 60 mg/dL *The National Cholesterol Education Program(NCEP) 99 Reference Guidelines*: Optimal:........... <100 mg/dL Near Optimal....... 100-129 mg/dL Borderline High.... 130-159 mg/dL High............... 160-189 mg/dL Very High.......... >=190 mg/dL * Source: National Cholesterol Education Program (NCEP) 100 Elevated levels of HbA1c suggest the need for more aggressive treatment of glycemia. The [place] [employer] recommends that a primary goal [...] used interchangeably. Procedures Date Code Description Status 02/23/2019 28059 EKG-Tracing And Report Completed 02/08/2019 06817 Debridement Nails Any Method 6 Or More Completed 10/12/2018 [id number] Diabetic Foot Exam Completed 10/11/2018 92725 Debridement Nails Any Method 6 Or More Completed 08/06/2018 67998 Echocardiogram Complete Completed 11/05/2017 70653 Laparoscopy Surgical Repair Incisional Hernia Completed 10/15/2017 17482 Colonoscopy With Biopsy Completed 10/15/2017 54084 EGD With Biopsy Completed 10/09/2017 05663 Eye Exam New Patient Comprehensive Completed 09/21/2017 [id number] Colonoscopy Completed 08/20/2017 98648 EKG-Tracing And Report Completed 03/30/2017 37604 Bronchospasm Provocation Evaluation Multi Spirometric Completed Determinati 03/30/2017 29210 Spirometry Completed 01/13/2017 88603 Stress Test Interpre And Report Only Completed 01/13/2017 29612 Stress Test Physician Super Only Completed 01/13/2017 57228 Myocardial Imaging Tomographic Multiple Study AT Rest Completed Or Stress 01/09/2017 94155 EKG-Tracing And Report Completed 10/01/2016 04859 EKG-Tracing And Report Completed 04/14/2016 28444 Nerve Conduction 5-6 Studies Completed 04/14/2016 61485 Needle Electromyography Complete, Five Or More Muscles Completed Studied 11/22/2015 05875 EKG-Tracing And Report Completed 07/04/2015 85035 Bronchospasm Provocation Evaluation Multi Spirometric Completed Determinati 07/04/2015 06054 Bronchodilation Responsiveness Spirometry Pre/Post Completed Bronchodil Adm 07/04/2015 00935 Spirometry Completed 11/13/2014 65289 Myocardial Imaging Tomographic Multiple Study AT Rest Completed Or Stress 11/13/2014 72331 Stress Test Physician Super Only Completed 11/13/2014 40720 Stress Test Physician Super Only Completed 11/13/2014 29644 Stress Test Interpre And Report Only Completed 05/02/2014 17911 EKG-Tracing And Report Completed 10/04/2013 65900 Echocardiogram Complete Completed 03/13/2011 09333 EKG-Tracing And Report Completed 03/13/2011 77355 EKG-Tracing And Report Completed 03/12/2010 53961 EKG-Tracing And Report Completed 01/19/2009 48289 Echocardiogram Complete Completed 01/19/2009 41119 Stress Test Interpre And Report Only Completed 01/19/2009 24854 Stress Test Physician Super Only Completed 01/19/2009 02499 Ejection Fraction Completed 01/19/2009 83550 Myocardial Wall Motion Completed 01/19/2009 37209 Cardiolite Stress/Rest Spect Completed 01/17/2009 78610 EKG-Tracing And Report Completed Encounters Type Date Location Provider Dx Diagnosis Office Visit 02/23/2019 Cardiology Office Nola Miller R06.02 Shortness of 3:20p Phani, BRI, breath [employer] WORK[employer] I25.10 [facility] heart disease of [place] coronary artery w/o ang pctrs I10 Essential (primary) hypertension I73.9 Peripheral vascular disease, unspecified E78.5 Hyperlipidemia, unspecified R09.89 Oth symptoms and signs involving the circ and resp systems Office Visit 01/18/2019 3:00p Primary Care Kaykay Schwartz, K76.0 Fatty (change of) Office MS, [employer] WORKER-C, CNM liver, not elsewhere classified R94.5 Abnormal [...] 2 diabetes Office MS Kaykay, mellitus without [employer] WORKER-C, CNM complications E55.9 Vitamin D deficiency, unspecified [...] 2 diabetes Office MS Kaykay, mellitus without [employer] WORKER-C, CNM complications R94.5 Abnormal results of liver function studies R06.2 Wheezing J06.9 Acute upper respiratory infection, unspecified I10 Essential (primary) hypertension E55.9 Vitamin D deficiency, unspecified R06.02 Shortness of breath R05 Cough Office Visit 11/03/2018 3:30p Primary Care Lana, E11.9 Type 2 diabetes Office MS Kaykay, mellitus without [employer] WORKER-C, CNM complications B35.3 Tinea pedis R94.5 Abnormal results of liver function studies I10 Essential (primary) hypertension E55.9 Vitamin D deficiency, unspecified E78.5 Hyperlipidemia, unspecified Office Visit 10/20/2018 3:30p Primary Care Lana, E11.9 Type 2 diabetes Office MS Kaykay, mellitus without [employer] WORKER-C, CNM complications B35.3 Tinea pedis I35.1 Nonrheumatic aortic (valve) insufficiency I25.10 [facility] heart disease of [place] coronary artery w/o ang pctrs I10 Essential (primary) hypertension I73.9 Peripheral vascular disease, unspecified E78.5 Hyperlipidemia, unspecified K21.0 Gastro-esophageal reflux disease with esophagitis R94.5 Abnormal results of liver function studies Office Visit 10/11/2018 1:00p Podiatry Office Edgar Morgan, E11.9 Type 2 diabetes DPM mellitus without complications B35.3 Tinea pedis Office Visit 08/23/2018 Cardiology Nola Miller I35.1 Nonrheumatic aortic 3:00p Office BRI Jeronimo, (valve) [employer] insufficiency I25.10 [facility] heart disease of [place] coronary artery w/o ang pctrs I10 Essential (primary) hypertension I34.0 Nonrheumatic mitral (valve) insufficiency I73.9 Peripheral vascular disease, unspecified Office Visit 07/20/2018 3:00p Primary Care Kaykay Schwartz, J44.9 Chronic Office MS, [employer] WORKER-C, CNM obstructive pulmonary disease, unspecified E11.42 Type [...] M54.5 Low back pain Office Kaykay, MS, [employer]-C, CNM Office Visit 04/02/2018 2:30p Primary Care Fidel Schwartz4.5 Low back pain Office Kaykay, MS, [employer]ER-C, CNM Office Visit 02/17/2018 2:20p Cardiology Office Nola Miller I25.10 [facility] heart Phani, BRI, disease of [employer] WORKER [place] coronary artery w/o ang pctrs E78.4 Other hyperlipidemia I73.9 Peripheral vascular disease, unspecified I10 Essential (primary) hypertension I34.0 Nonrheumatic mitral (valve) insufficiency I35.1 Nonrheumatic aortic (valve) insufficiency Office Visit 01/15/2018 2:00p Primary Care Katelin Dickey, I10 Essential ( primary) Office hypertension E78.5 Hyperlipidemia, unspecified E11.42 Type 2 [...] (primary) hypertension I25.10 [facility] heart disease of [place] coronary 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 ang pctrs E78.5 Hyperlipidemia, unspecified I73.9 Peripheral vascular disease, unspecified Office Visit 06/19/2017 9:45a Primary Care Katelin Dickey, I10 Essential ( primary) Office MD hypertension Office Visit 06/15/2017 9:20a Primary Care Katelin Dickey, E11.42 Type 2 diabetes Office MD mellitus with diabetic polyneuropathy E78.4 Other hyperlipidemia I25.10 [facility] heart disease of [place] coronary artery w/o ang pctrs I10 Essential (primary) hypertension M51.16 Intervertebral disc disorders w radiculopathy, lumbar region Z23 Encounter for immunization Office Visit 03/17/2017 9:40a Primary Care Katelin Dickey, E11.42 Type 2 diabetes Office mellitus with diabetic polyneuropathy Z79.84 equipment [employer] (current) use of oral hypoglycemic drugs E78.4 Other hyperlipidemia I73.9 Peripheral vascular disease, unspecified Office Visit 01/09/2017 Cardiology Nay Z01.810 Encounter for 1:40p Office Garcia Olivier M.D., preprocedural FAC cardiovascular examination I73.9 Peripheral vascular disease, unspecified E78.4 Other hyperlipidemia I25.10 [facility] heart disease of [place] coronary artery w/o ang pctrs Office Visit [...] (primary) hypertension I25.10 [facility] heart disease of [place] coronary artery w/o ang pctrs B35.3 Tinea pedis Office Visit 10/01/2016 Cardiology Nola Miller Z01.810 Encounter for 3:00p Office BRI Jeronimo, preprocedural [employer] WORKER cardiovascular examination I25.10 [facility] heart disease of [place] coronary artery w/o ang pctrs I73.9 Peripheral vascular disease, unspecified E78.4 Other hyperlipidemia I10 Essential (primary) hypertension E11.42 Type 2 diabetes mellitus with diabetic polyneuropathy J44.9 Chronic obstructive pulmonary disease, unspecified Office Visit 07/08/2016 10:00a Primary Care Gregorio Ortega I25.10 [facility] heart Office E., DO disease of [place] coronary artery w/o ang pctrs E78.4 Other [...] disc 3:20p Office Phani, MSN, disorders w [employer] WORKER radiculopathy, lumbar region I73.9 Peripheral vascular disease, unspecified I25.10 [facility] heart disease of [place] coronary artery w/o ang pctrs E78.4 Other hyperlipidemia I10 Essential (primary) hypertension Office Visit 12/25/2015 1:30p Pulmonology Cresencio Hair, J43.2 Centrilobular MD emphysema F17.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, cigarettes, in remission Office Visit 11/22/2015 3:20p Cardiology Garcia Tee I73.9 Peripheral Office Elo Olivier, [facility] vascular disease, unspecified I25.10 [facility] heart disease of [place] coronary artery w/o ang pctrs E78.4 Other hyperlipidemia Office Visit 06/25/2015 2:00p Pulmonology Cresencio Hair, R06.02 Shortness of MD breath Office Visit 05/23/2015 1:00p Cardiology Office Nola Miller 786.05 Shortness Of Phani, Breath MSN, [employer] WORKER 414.01 Coronary Atherosclerosis [place] 443.9 Peripheral Vascular Disease Unspec 401.1 Hypertension Benign 272.4 Hyperlipidemia Other Unspec Office Visit 11/09/2014 1:00p Cardiology Office Nola Miller 786.05 Shortness Of Phani, MSN, Breath [employer] 414.01 Coronary Atherosclerosis [place] 443.9 Peripheral Vascular Disease Unspec 401.1 Hypertension Benign 272.4 Hyperlipidemia Other Unspec Office Visit 05/02/2014 Cardiology Nay 414.01 Coronary 11:40a Office Garcia Olivier M.D., Atherosclerosis FACC [place] 443.9 Peripheral Vascular Disease Unspec 401.1 Hypertension Benign 302.72 Psychosexual Dysfunction W/ Inhibited Sexual Excitement Office Visit 10/11/2013 2:00p Cardiology Office Garcia Tee 424.0 Mitral Valve Elo Olivier, FACC Disorder 272.4 Hyperlipidemia Other Unspec 414.01 Coronary Atherosclerosis [place] 443.9 Peripheral Vascular Disease Unspec Office Visit 04/06/2013 Cardiology Nola Miller 272.4 Hyperlipidemia 1:40p Office BRI Jeronimo, Other Unspec [employer] WORKER 414.01 Coronary Atherosclerosis [place] 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 443.9 Peripheral Vascular Disease Unspec 401.1 Hypertension Benign 424.0 Mitral Valve Disorder 790.21 Impaired Fasting Glucose Office Visit 10/06/2012 Cardiology Garcia Tee 272.4 Hyperlipidemia 2:40p Office Elo Olivier, FACC Other Unspec 414.01 Coronary Atherosclerosis [place] 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 443.9 Peripheral Vascular Disease Unspec Office Visit 03/02/2012 Cardiology Nola Miller 414.01 Coronary 3:30p Office BRI Jeronimo, Atherosclerosis [employer]ER [place] 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 443.9 Peripheral Vascular Disease Unspec 272.4 Hyperlipidemia Other Unspec 401.1 Hypertension Benign 790.29 Other Abnormal Glucose Office Visit 09/01/2011 Cardiology Nay 414.01 Coronary 3:10p Office Garcia Olivier M.D., Atherosclerosis FACC [place] 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 443.9 Peripheral Vascular Disease Unspec 272.4 Hyperlipidemia Other Unspec 401.1 Hypertension Benign 441.9 Aneurysm Aortic W/O Rupture Unspec Site Office Visit 03/13/2011 Cardiology Nola Miller 414.01 Coronary 2:00p Office BRI Jeronimo, Atherosclerosis [employer] WORK[employer] [place] 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 443.9 Peripheral Vascular Disease Unspec 272.4 Hyperlipidemia Other Unspec 401.1 Hypertension Benign 441.9 Aneurysm Aortic W/O Rupture Unspec Site 790.29 Other Abnormal Glucose Office Visit 09/11/2010 Cardiology Nay 414.01 Coronary 2:10p Office Garcia Olivier M.D., Atherosclerosis FACC [place] 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 272.4 Hyperlipidemia Other Unspec 401.1 Hypertension Benign Office Visit 03/12/2010 Cardiology Nay 414.01 Coronary 12:40p Office Garcia Olivier M.D., Atherosclerosis [facility] [place] 443.9 Peripheral Vascular Disease Unspec 401.1 Hypertension Benign 272.4 Hyperlipidemia Other Unspec 786.05 Shortness Of Breath 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 Office Visit 03/12/2009 Cardiology Nay 414.01 Coronary 2:00p Office Garcia Olivier M.D., Atherosclerosis [facility] [place] 441.9 Aneurysm Aortic W/O Rupture Unspec Site Office Visit 01/26/2009 2:00p Cardiology Office Garcia Tee 786.05 Shortness Of Elo Olivier, [facility] Breath 443.9 Peripheral Vascular Disease Unspec 401.1 Hypertension Benign 794.30 Cardiovascular Function Study Unspec Abnormal Office Visit 01/17/2009 Cardiology Garcia Tee 401.1 Hypertension 9:00a Office Elo Olivier, [facility] Benign 786.05 Shortness Of Breath 272.4 Hyperlipidemia Other Unspec V72.81 Examination Preoperative Cardiovascular Plan of Treatment Future Appointment(s):03/28/2019 3:20 pm - Nola Miller, BRI, [employer] HE[employer] WORKER at Cardiology [id number]/2019 4:05 pm - Edgar Morgan DPM at Podiatry [id number] 3:30 pm - Kaykay Schwartz MS, [employer] HE[employer] WORKER-C, CNM at Primary Care [id number] 3:45 pm - Cresencio Hair MD at Pulmonology
[2019-03-12 19:01] VITALS: BP 165/65
[2019-03-12] MEDS ORDERED: Neomyc/Polym/HC 1% OTIC SUSP* **OTIC RIGHT EAR ONE (19:30)
[2019-03-12] MEDS ORDERED: Amoxicillin PO (*) 500 MG CAP PO ONE (19:30)
--- NOTE | 2019-03-12 19:31 | UC ---
Throat Pain/Nasal Bakari HPI - HPI Summary HPI Summary: C/O right sided sore throat with maxillary sinus pain/ congestion. Right ear pain as well. Had difficulty sleeping. - History of Current Complaint Chief Complaint: UCRespiratory Stated Complaint: SORE THROAT,EARS,FEVER Hx Obtained From: Patient Onset/Duration: Sudden Onset, Lasting Days - 1, Still Present Severity: Moderate Pain Intensity: 6 Cough: None Associated Signs & Symptoms: Positive: Dysphagia, Sinus Discomfort - Allergies/Home Medications Allergies/Adverse Reactions: Allergies Allergy/AdvReac Type Severity Reaction Status Date / Time liraglutide [From Victoza] AdvReac Stomach Verified 03/12/19 19:01 Cramps Home Medications: Home Medications [place]-3 Fatty Acids/Fish Oil [Fish Oil 1,000 mg Softgel] 1 each PO BID 03/12/19 [History Confirmed 03/12/19] Pantoprazole TAB * [Protonix TAB*] 40 mg PO DAILY 03/12/19 [History Confirmed ] PMH/Surg Hx/FS Hx/Imm Hx Endocrine History: Diabetes, Dyslipidemia Cardiovascular History: Cardiac Disease, Hypertension Respiratory History: COPD GI/ History: Gastroesophageal Reflux - Surgical History Surgical History: Yes Surgery Procedure, Year, and Place: aortic bypass x2. hernia - Family History Known Family History: Positive: Cardiac Disease, Hypertension, Diabetes - Social History Occupation: Employed Full-time Lives: With Family Alcohol Use: None Substance Use Type: None Smoking Status (MU): Former Smoker When Did the Patient Quit Smoking/Using Tobacco: 2003 Review of Systems All Other Systems Reviewed And Are Negative: Yes Constitutional: Positive: Fatigue ENT: Positive: Sore Throat, Ear Ache, Sinus Pain/Tenderness Is Patient Immunocompromised?: No Physical Exam Triage Information Reviewed: Yes Appearance: No Pain Distress, Well-Nourished, Ill-Appearing Vital Signs: Initial Vital Signs Temp 98.5 F 03/12/19 18:56 Pulse 62 03/12/19 18:56 Resp 16 03/12/19 18:56 BP 165/65 03/12/19 18:56 Pulse Ox 97 03/12/19 18:56 Vital Signs Reviewed: Yes ENT: Positive: Pharynx normal, Nasal congestion, TMs normal - Right ear wrapping machine tender with mild erythema and swelling., Sinus tenderness - right maxillary Neck exam: Normal Respiratory Exam: Normal Cardiovascular: Positive: RRR, Murmur:Sys:Grade _?_/ - 2/6 Musculoskeletal Exam: Normal Neurological Exam: Normal Psychological Exam: Normal Skin Exam: Normal Throat Pain/Nasal Course/Dx - Differential Dx/Diagnosis Differential Diagnosis/HQI/PQRI: Otitis Media, Pharyngitis, Sinusitis, Tonsillitis, URI Provider Diagnosis: Acute otitis externa of right ear, Right maxillary sinusitis Discharge - Sign-Out/Discharge Documenting (check all that apply): Patient Departure All imaging exams completed and their final reports reviewed: No Studies - Discharge Plan Condition: Stable Disposition: HOME Prescriptions: Amoxicillin PO (*) [Amoxicillin 875 MG (*)] 875 mg PO BID #20 tab Neomyc/Polym/HC 1% OTIC SUSP* [Cortisporin Otic Susp 1%*] 4 drop RIGHT EAR TID # 1 btl Patient Education Materials: Otitis Externa (ED), Neomycin/Polymyxin B/ Hydrocortisone (Into the ear), Sinusitis (ED), Amoxicillin (By mouth) Referrals: Katelin Dickey MD [Primary Care Provider] - Additional Instructions: NEILMED SINUS RINSE: CHECK OUT AT [employer] Saline nasal wash helps with mucous, allergies and congestion. It can be used up to twice a day or only as needed. Use lukewarm tap water. It does not have to be sterilized or distilled water. Do 1/3 on each side and snort out of both nostrils. Repeat the process with 1/6 of the bottle on each side with snorting in between to finish the solution in the bottle - Billing Disposition and Condition Condition: STABLE Disposition: Home
== END 2019-03-12 19:49 | disposition home or self-care (01) ==
LOC: UCCORT 18:43
DX: H60.501 Unspecified acute noninfective otitis externa, right ear (principal); J32.0 Chronic maxillary sinusitis; E11.9 Type 2 diabetes mellitus without complications; I10 Essential (primary) hypertension; Z87.891 Personal history of nicotine dependence
CPT/HCPCS: 99213; A9270-GY; G0463

== ENCOUNTER 2019-10-12 07:53 | Emergency (ER) | payer BC ==
[2019-10-12 08:08] VITALS: BP 141/59
[2019-10-12] MEDS ORDERED: Tetracaine 0.5% OPTH.SOL 4 ML* 1 DROP BTL RIGHT EYE ONE (08:12)
[2019-10-12] MEDS ORDERED: Fluorescein Sodium TOPICAL* 1 MG TEST STRIP OPHTHALMIC ONE (08:13)
--- NOTE | 2019-10-12 08:36 | UC ---
Eye Complaint HPI - HPI Summary HPI Summary: right eye irritation x 1 day. concern about fb in his right eye woke up this morning with the fb sensation in his right eye pain in 1 out of 10 , worse with blinking, nothing makes it better + tearing, no change in vision - History of Current Complaint Chief Complaint: UCEye Stated Complaint: RIGHT EYE Time Seen by Provider: 10/12/19 08:12 Hx Obtained From: Patient Onset/Duration: Gradual Onset, Lasting Days - 1, Still Present Timing: Constant Severity Initially: Moderate Severity Currently: Moderate Pain Intensity: 1 Location of Injury: Globe - right Character: Foreign Body Sensation Aggravating Factor(s): Blinking Alleviating Factor(s): Nothing Associated Signs And Symptoms: Positive: Drainage (Clear). Negative: Photophobia, Drainage (Purulent), Vision Impairment Bilateral, Vision Impairment Right, Vision Impairment Left, Fever, Swelling - Allergies/Home Medications Allergies/Adverse Reactions: Allergies Allergy/AdvReac Type Severity Reaction Status Date / Time liraglutide [From Victoza] AdvReac Stomach Verified 10/12/19 08:08 Cramps PMH/Surg Hx/FS Hx/Imm Hx Endocrine History: Diabetes Cardiovascular History: Cardiac Disease, Hypertension Respiratory History: COPD - Surgical History Surgical History: Yes Surgery Procedure, Year, and Place: aortic bypass x2. hernia - Family History Known Family History: Positive: Cardiac Disease, Hypertension, Diabetes - Social History Alcohol Use: None Substance Use Type: None Smoking Status (MU): Former Smoker When Did the Patient Quit Smoking/Using Tobacco: 2003 - Immunization History Most Recent Tetanus Shot: unknown Review of Systems All Other Systems Reviewed And Are Negative: Yes Constitutional: Positive: Negative Skin: Positive: Negative Eyes: Positive: Drainage - clear. Negative: Blurred Vision, Diplopia, Eye Redness, Photophobia ENT: Positive: Negative Respiratory: Positive: Negative Is Patient Immunocompromised?: No Physical Exam Triage Information Reviewed: Yes Appearance: Well-Appearing, No Pain Distress, Well-Nourished Vital Signs: Initial Vital Signs Temp 97.9 F 10/12/19 08:02 Pulse 61 10/12/19 08:02 Resp 18 10/12/19 08:02 BP 141/59 10/12/19 08:02 Pulse Ox 98 10/12/19 08:02 Vital Signs Reviewed: Yes Eye Exam: Normal Eyes: Positive: Conjunctiva Clear, Other: - no fb noted, mild corneal abrasion right eye ENT: Positive: Normal ENT inspection, Hearing grossly normal, Pharynx normal Neck exam: Normal Neck: Positive: Supple, Nontender, No Lymphadenopathy Respiratory: Positive: Chest non-tender, Lungs clear, Normal breath sounds Cardiovascular: Positive: RRR, No Murmur, Pulses Normal Eye Complaint Course/Dx - Differential Dx/Diagnosis Provider Diagnosis: Corneal abrasion Discharge ED - Sign-Out/Discharge Documenting (check all that apply): Patient Departure All imaging exams completed and their final reports reviewed: No Studies - Discharge Plan Condition: Stable Disposition: HOME Patient Education Materials: Corneal Abrasion (ED) Forms: *Work Release Referrals: Katelin Dickey MD [Primary Care Provider] - If Needed Additional Instructions: no foreign body seen, ? corneal abrasion cont. to monitor , follow up if having increase eye pain, change in vision , photophobia, discharge - Billing Disposition and Condition Condition: STABLE Disposition: Home
== END 2019-10-12 08:36 | disposition home or self-care (01) ==
LOC: UCCORT 07:53
DX: S05.01XA Injury of conjunctiva and corneal abrasion without foreign body, right eye, initial encounter (principal); E11.9 Type 2 diabetes mellitus without complications; I10 Essential (primary) hypertension; J44.9 Chronic obstructive pulmonary disease, unspecified; Z87.891 Personal history of nicotine dependence; Z88.8 Allergy status to other drugs, medicaments and biological substances; X58.XXXA Exposure to other specified factors, initial encounter; Y92.9 Unspecified place or not applicable
CPT/HCPCS: 99212; A9270-GY; G0463